=== PATIENT | male | born 1950 | race African-American/Black ===

== ENCOUNTER 2017-03-07 12:05 | Observation (INO) | payer BC ==
[2017-03-07] MEDS ORDERED: Ondansetron INJ* 2 MG/ML VIAL IV ONE (12:35)
[2017-03-07] MEDS ORDERED: NS 0.9% 1000 ML* 3,000 ML IV ONE (12:35)
[2017-03-07] MEDS ORDERED: Morphine INJ* 4 MG/ML 1 ML SYRINGE IV ONE (12:35)
[2017-03-07 12:47] LABS: Hematocrit 42 % (42-52); Hemoglobin 14.7 g/dl (14.0-18.0); Mean Corpuscular HGB Conc 35 g/dl (31-36); Mean Corpuscular Hemoglobin 32 pg (27-31); Mean Corpuscular Volume 93 fL (80-94); Mean Platelet Volume 7 um3 (7.4-10.4); Red Blood Count 4.54 10^6/ul (4.0-5.4); Red Cell Distribution Width 14 % (10.5-15); White Blood Count 16.4 10^3/ul (3.5-10.8)
[2017-03-07 12:50] LABS: Add Diff/Slide Review? Slide Review Added; Comments Flag Yes
[2017-03-07 13:02] LABS: Albumin 4.6 g/dL (3.2-5.2); BUN/Creatinine Ratio 12.8 (8-20); C Reactive Protein 3.28 mg/L (< 5.00); Calcium 9.7 mg/dL (8.6-10.3); EGFR African American 128.5 (>60); EGFR Non-African American 99.9 (>60); Globulin 3.8 g/dL (2-4); Potassium 3.6 mmol/L (3.5-5.0); Total Bilirubin 0.5 mg/dL (0.2-1.0); Total Protein 8.4 g/dL (6.4-8.9)
[2017-03-07] MEDS ORDERED: HYDROmorphone* 1 MG/ML 1 ML SYR IV SLOW PU ONE ×3 (13:04→17:08)
[2017-03-07] MEDS ORDERED: Iohexol 300* (CONTRAST) 10 ML SDV IV ONE (13:31)
[2017-03-07 16:05] LABS: Urine Bacteria Absent (Absent); Urine Bilirubin Negative (Negative); Urine Glucose Negative (Negative); Urine Nitrite Negative (Negative)
--- NOTE | 2017-03-07 16:53 | RAD ---
CLINICAL HISTORY: Emesis and abdominal pain COMPARISON: Most recent CT of the abdomen and pelvis is dated June 02, 2011 TECHNIQUE: Contrast enhanced CT examination of the abdomen and pelvis from the lung bases through the initial tuberosities. The patient received 123 mL Omnipaque 300 intravenously prior to imaging.The patient received oral contrast as well prior to imaging. FINDINGS: VISUALIZED LUNG BASES: The visualized lung bases are grossly clear. There is no pleural effusion. ABDOMEN AND PELVIS: Liver is homogenously hypodense relative to the spleen. In the right lobe (image 18) there is a 1.1 cm hyperattenuating subcapsular lesion that may be a bit larger when compared to the 2011 CT examination. The spleen, pancreas and adrenal glands are grossly normal in appearance. The gallbladder is normal. The right kidney is normal in appearance without focal mass, calcification or signs of hydronephrosis. At the lower pole of the left kidney there is a heterogeneous well-circumscribed mass measuring 4.4 x 3.7 cm in the axial plane and 4.5 cm in the cephalocaudal projection. This mass was not present on the previous CT examination. The oral contrast has not progressed beyond the midportion of the small bowel which limits evaluation of the distal small bowel and colon. The small and large bowel are not distended. The patient's normal 6 mm appendix is identified in the right lower quadrant (coronal image 48). Beginning at the hepatic flexure there is possible wall thickening of the transverse colon extending as far as the descending colon. Evaluation is limited without oral contrast in the lumen. Gas and stool is seen as far as the rectum. The wall thickening of the descending colon potentially measures as thick a 7 mm (image 49). There is no definite pericolonic fat stranding. There is no evidence of colonic perforation or drainable fluid collection. There is no gross retroperitoneal or mesenteric lymphadenopathy. The prostate is enlarged measuring 5.3 x 6.6 cm in the axial plane and approximately 5.4 cm in the cephalocaudal projection. A small left-sided fat-containing wall hernia is noted. The mildly calcified abdominal aorta and iliac arteries are normal in diameter and exhibit moderate ectatic curvature. Degenerative changes include multilevel loss of intervertebral disc height involving the lower thoracic and lumbar spine.There are no sinister bone lesions. IMPRESSION: 1. Evaluation of the colon is limited as the oral contrast has not progressed on the midportion of the small bowel, but CT findings indicate long segment colitis of the transverse and descending colon. An inflammatory or infectious etiology is favored. 2. There has been interval appearance of a 4.5 cm mass at the lower pole the left kidney. Renal cell carcinoma is the primary concern. Further imaging characterization could be obtained with contrast-enhanced MRI or ultrasound of the kidney. There is currently no CT evidence of metastases in the abdomen or pelvis. 3. Prostatomegaly. 4. Hyperenhancing lesion in the right lobe of the liver is slightly larger than the [address] CT and most consistent with a flash filling hemangioma. 5. Additional chronic and degenerative changes as described in the body the report.
[2017-03-07] MEDS ORDERED: Ciprofloxacin 400MG IVPREMIX(* 400 MG/200 ML BAG IVPB ONE (17:06)
[2017-03-07] MEDS ORDERED: metroNIDAZOLE IV 500 MG/100ML* 500 MG/100 ML BAG IVPB ONE (17:08)
--- NOTE | 2017-03-07 18:40 | ED ---
I, Oh,Soohjoyce, scribed for Danilo Rob MD on 03/07/17 at 1242 . Abdominal Pain/Male - HPI Summary HPI Summary: This 67 y/o male presents to ED for acute abd pain since 0600 AM. He denies any abd discomfort last night although admits sleep disturbance. Pain is left sided , does not radiate anywhere, and constant but waxing and waning since the time of onset. Positive n/v/d. Difficulty tolerating liquid. Negative blood in stool or in vomit. Pt is noted with diaphoresis at time of initial evaluation. Pt denies any PMHx. Pt is former smoker and occasional M[employer] user. - History of Current Complaint Chief Complaint: EDAbdPain Stated Complaint: VOMITING Time Seen by Provider: 03/07/17 12:25 Hx Obtained From: Patient Timing: Constant Pain Intensity: 10 Pain Scale Used: 0-10 Numeric Location: Discrete At: LUQ, Discrete At: LLQ Radiates: No Character: Dull Aggravating Factor(s): Nothing Alleviating Factor(s): Nothing Associated Signs And Symptoms: Positive: Nausea, Vomiting, Diarrhea. Negative: Blood in Stool, Urinary Symptoms - Allergies/Home Medications Allergies/Adverse Reactions: Allergies Allergy/AdvReac Type Severity Reaction Status Date / Time No Known Allergies Allergy Verified 03/07/17 12:08 PMH/Surg Hx/FS Hx/Imm Hx Previously Healthy: Yes - Pt denies any PMHx. Infectious Disease History: No Infectious Disease History: Denies: History Other Infectious Disease, Traveled Outside the [place] in Last 30 Days - Family History Known Family History: Negative: Cardiac Disease, Hypertension - Social History Alcohol Use: Occasionally Hx Substance Use: Yes Substance Use Type: Reports: Marijuana Substance Use Comment - Amount & Last Used: "every now and then" Hx Tobacco Use: Yes Smoking Status (MU): Former Smoker Review of Systems Negative: Fever Positive: Abdominal Pain, Vomiting, Diarrhea, Nausea. Negative: Other - blood in stool Negative: dysuria, hematuria All Other Systems Reviewed And Are Negative: Yes Physical Exam - Summary Physical Exam Summary: The patient is well-nourished and moderate discomfort. The skin is warm and dry and skin color reflects adequate perfusion. Track brendon on LUE. Diaphoretic. Positive pallor. HEENT: The head is normocephalic and atraumatic. The pupils are equal and reactive. The conjunctivae are clear and without drainage. Nares are patent and without drainage. Mouth reveals DRY mucous membranes and the throat is without erythema and exudate. The external ears are intact. The ear canals are patent and without drainage. The tympanic membranes are intact. Neck is supple with full range of motion and non-tender. There are no carotid bruits. Supple. Respiratory: Chest is non-tender. Lungs are clear to auscultation and breath sounds are symmetrical and equal. Cardiovascular: Hear is regular rate and rhythm. Unruly There is no murmur or rub auscultated. There is no peripheral edema and pulses are symmetrical and equal. Abdomen: The abdomen is soft and without reproducible tenderness to palpation. Decreased bowel sound. no percussive tenderness. There are normal bowel sounds heard in all four quadrants and there is no organomegaly palpated. Musculoskeletal: There is no back pain noted. Extremities are non-tender with full range of motion. There is good capillary refill. There is no peripheral edema or calf tenderness elicited. Neurological: Patient is alert and oriented to person, place and time. The patient has symmetrical motor strength in all four extremities. Cranial nerves are grossly intact. Deep tendon reflexes are symmetrical and equal in all four extremities. Psychiatric: The patient has an appropriate affect and does not exhibit any anxiety or depression. . Triage Information Reviewed: Yes Vital Signs On Initial Exam: Initial Vitals Temp Pulse Resp BP Pulse Ox 96.4 F 53 20 186/80 100 03/07/17 12:09 03/07/17 12:09 03/07/17 12:09 03/07/17 12:09 03/07/17 12:09 Vital Signs Reviewed: Yes - [place] Coma Scale Coma Scale Total: 15 Diagnostics - Vital Signs Vital Signs Temp Pulse Resp BP Pulse Ox 03/07/17 12:22 55 99 03/07/17 12:21 169/88 03/07/17 12:09 96.4 F 53 20 186/80 100 - Laboratory Lab Results: Lab Results 03/07/17 03/07/17 03/07/17 Range/Units 12:40 12:40 12:40 WBC 16.4 H (3.5-10.8) 10^3/ul RBC 4.54 (4.0-5.4) 10^6/ul Hgb 14.7 (14.0-18.0) g/dl Hct 42 (42-52) % MCV 93 (80-94) fL MCH 32 H (27-31) pg MCHC 35 (31-36) g/dl RDW 14 (10.5-15) % Plt Count 315 (150-450) 10^3/ul MPV 7 L (7.4-10.4) um3 Neut % (Auto) 92.5 H (38-83) % Lymph % (Auto) 3.7 L (25-47) % Ramsey % (Auto) 3.2 (1-9) % Eos % (Auto) 0 (0-6) % Baso % (Auto) 0.6 (0-2) % Absolute Neuts (auto) 15.2 H (1.5-7.7) 10^3/ul Absolute Lymphs (auto) 0.6 L (1.0-4.8) 10^3/ul Absolute Monos (auto) 0.5 (0-0.8) 10^3/ul Absolute Eos (auto) 0 (0-0.6) 10^3/ul Absolute Basos (auto) 0.1 (0-0.2) 10^3/ul Absolute Nucleated RBC 0.01 10^3/ul Nucleated RBC % 0.1 Sodium 138 (133-145) mmol/L Potassium 3.6 (3.5-5.0) mmol/L Chloride 104 (101-111) mmol/L Carbon Dioxide 23 (22-32) mmol/L Anion Gap 11 (2-11) mmol/L BUN 10 (6-24) mg/dL Creatinine 0.78 (0.67-1.17) mg/dL Est GFR ( Amer) 128.5 (>60) Est GFR (Non-Af Amer) 99.9 (>60) BUN/Creatinine Ratio 12.8 (8-20) Glucose 147 H (70-100) mg/dL Lactic Acid 3.0 H* (0.5-2.0) mmol/L Calcium 9.7 (8.6-10.3) mg/dL Total Bilirubin 0.50 (0.2-1.0) mg/dL AST 17 (13-39) U/L ALT 18 (7-52) U/L Alkaline Phosphatase 81 (34-104) U/L Total Creatine Kinase 119 (10-223) U/L Troponin I 0.00 (<0.04) ng/mL C-Reactive Protein 3.28 (< 5.00) mg/L Total Protein 8.4 (6.4-8.9) g/dL Albumin 4.6 (3.2-5.2) g/dL Globulin 3.8 (2-4) g/dL Albumin/Globulin Ratio 1.2 (1-3) Amylase 89 (29-103) U/L Lipase 11 (11.0-82.0) U/L Urine Color Urine Appearance Urine pH (5-9) Ur Specific Woody (1.010-1.030) Urine Protein (Negative) Urine Ketones (Negative) Urine Blood (Negative) Urine Nitrate (Negative) Urine Bilirubin (Negative) Urine Urobilinogen (Negative) Ur Leukocyte Esterase (Negative) Urine WBC (Auto) (Absent) Urine RBC (Auto) (Absent) Urine Bacteria (Absent) Urine Glucose (Negative) 03/07/17 Range/Units 15:55 WBC (3.5-10.8) 10^3/ul RBC (4.0-5.4) 10^6/ul Hgb (14.0-18.0) g/dl Hct (42-52) % MCV (80-94) fL MCH (27-31) pg MCHC (31-36) g/dl RDW (10.5-15) % Plt Count (150-450) 10^3/ul MPV (7.4-10.4) um3 Neut % (Auto) (38-83) % Lymph % (Auto) (25-47) % Ramsey % (Auto) (1-9) % Eos % (Auto) (0-6) % Baso % (Auto) (0-2) % Absolute Neuts (auto) (1.5-7.7) 10^3/ul Absolute Lymphs (auto) (1.0-4.8) 10^3/ul Absolute Monos (auto) (0-0.8) 10^3/ul Absolute Eos (auto) (0-0.6) 10^3/ul Absolute Basos (auto) (0-0.2) 10^3/ul Absolute Nucleated RBC 10^3/ul Nucleated RBC % Sodium (133-145) mmol/L Potassium (3.5-5.0) mmol/L Chloride (101-111) mmol/L Carbon Dioxide (22-32) mmol/L Anion Gap (2-11) mmol/L BUN (6-24) mg/dL Creatinine (0.67-1.17) mg/dL Est GFR ( Amer) (>60) Est GFR (Non-Af Amer) (>60) BUN/Creatinine Ratio (8-20) Glucose (70-100) mg/dL Lactic Acid (0.5-2.0) mmol/L Calcium (8.6-10.3) mg/dL Total Bilirubin (0.2-1.0) mg/dL AST (13-39) U/L ALT (7-52) U/L Alkaline Phosphatase (34-104) U/L Total Creatine Kinase (10-223) U/L Troponin I (<0.04) ng/mL C-Reactive Protein (< 5.00) mg/L Total Protein (6.4-8.9) g/dL Albumin (3.2-5.2) g/dL Globulin (2-4) g/dL Albumin/Globulin Ratio (1-3) Amylase (29-103) U/L Lipase (11.0-82.0) U/L Urine Color Yellow Urine Appearance Clear Urine pH 6.0 (5-9) Ur Specific Woody 1.051 H (1.010-1.030) Urine Protein 1+(30 mg/dl) H (Negative) Urine Ketones Negative (Negative) Urine Blood 1+ H (Negative) Urine Nitrate Negative (Negative) Urine Bilirubin Negative (Negative) Urine Urobilinogen Negative (Negative) Ur Leukocyte Esterase Negative (Negative) Urine WBC (Auto) Absent (Absent) Urine RBC (Auto) 1+(3-5/hpf) H (Absent) Urine Bacteria Absent (Absent) Urine Glucose Negative (Negative) Result Diagrams: 03/07/17 12:40 03/07/17 12:40 Lab Statement: Any lab studies that have been ordered have been reviewed, and results considered in the medical decision making process. - CT Ab/P CT Interpretation: Positive (See Comments) - 1. Evaluation of the colon is limited as the oral contrast has not progressed on the midportion of the small bowel, but CT findings indicate long segment colitis of the transverse and descending colon. An inflammatory or infectious etiology is favored. 2. There has been interval appearance of a 4.5 cm mass at the lower pole the left kidney. Renal cell carcinoma is the primary concern. Further imaging characterization could be obtained with contrast-enhanced MRI or ultrasound of the kidney. There is currently no CT evidence of metastases in the abdomen or pelvis. 3. Prostatomegaly. 4. Hyperenhancing lesion in the right lobe of the liver is slightly larger than the [address] CT and most consistent with a flash filling hemangioma. 5. Additional chronic and degenerative changes as described in the body the report. CT Interpretation Completed By: Radiologist - EKG 1325 Cardiac Rate: Bradycardia - 49 bpm EKG Rhythm: Sinus Bradycardia EKG Interpretation: left axis. Nonspecific ST changes Re-Evaluation - Re-Evaluation First Eval Re-Evaluation Time: 15:50 Comment: Pt was re-evaluated. Pt is still diaphoretic, and pain still persist. Pain med ordered. Second Eval Re-Evaluation Time: 17:04 Comment: Pt is updated with bloodworks and CT reading results. Hard copies are provided to pt. Pain still persist. Abdominal Pain Fem Course/Dx - Course Assessment/Plan: This 67 y/o male presents to ED with severe diffuse abd pain. Upon examination pt was not tendern to palpation, but noted diaphoretic and in exquisite pain. Bloodwork indicated lactic acid of 3.0 and WBC of 16.4, and CT indicates long segment colitis of the transverse and descending colon, 4.5 cm mass at the lower pole the left kidney with primary concern for Renal cell carcinoma, and flash filling hemangioma. Hospitalist was consulted, and pt is admitted for further workup. - Diagnoses Differential Diagnosis/HQI/PQRI: Appendicitis, Bowel Obstruction, Diverticulitis , Ischemic Bowel, Renal Colic, Ureteral Stone, Other - perforated viscus, mi, renal mass Provider Diagnoses: Colitis, acute - Provider Notifications Discussed Care Of Patient With: Dr. Barrow (hospitalist) at 1700 PM -- jamaica martins for pt. Instructed by Provider To: Admit As Inpatient - Critical Care Time Critical Care Time: 30-74 min - 30 minutes Discharge - Discharge Plan Condition: Stable Disposition: ADMITTED TO [facility] documentation as recorded by the Jaziel wray Soohyun accurately reflects the service I personally performed and the decisions made by , Danilo Rob MD.
[2017-03-07] MEDS ORDERED: HYDROmorphone* 1 MG/ML 1 ML SYR IV SLOW PU PRN (18:48)
[2017-03-07] MEDS ORDERED: hydrALAZINE IV* 20 MG/ML VIAL IV SLOW PU PRN (18:48)
[2017-03-07] MEDS ORDERED: Ondansetron INJ* 2 MG/ML VIAL IV PRN (18:49)
[2017-03-07] MEDS: NS 0.9% 1000 ML* 1,000 ML IV SCH (19:44)
--- NOTE | 2017-03-07 20:37 | RAD ---
INDICATION: Further evaluation of a left lower pole renal mass. COMPARISON: Same day CT examination that demonstrates heterogeneous left lower pole renal mass. TECHNIQUE: Real-time ultrasound examination of the left kidney including grayscale and Doppler color flow analysis. FINDINGS: The left kidney measures 13.4 x 5.2 x 6.2 cm. Corresponding to the same day CT examination, there is an echogenically heterogeneous solid mass with arterial vascular flow measuring 6.5 x 3.7 x 3.9 cm. Remaining visualized portions of the left kidney are normal. There is no hydronephrosis. IMPRESSION: Heterogeneous lower pole renal mass measuring 6.5 cm in greatest dimension concerning for malignancy.
--- NOTE | 2017-03-07 21:12 | HP ---
HOSPITAL MEDICINE HISTORY AND PHYSICAL: DATE OF ADMISSION: 03/07/17 PRIMARY CARE PHYSICIAN: None. ATTENDING PHYSICIAN: Yolande Coats MD *(dictation provided by Kassie Solis NP) . CHIEF COMPLAINT: Abdominal pain with nausea and vomiting. HISTORY OF PRESENT ILLNESS: Mr. Crews is a 67-year-old male who does not follow routinely with medical care, but has no known past medical history who presented to the hospital today after the sudden onset of nausea, vomiting, diarrhea, and abdominal pain. Mr. Crews states he was in his normal state of health yesterday and when he first woke up this morning; however, about 30 minutes after waking up he developed nausea. He became very diaphoretic and cold. He thereafter had severe mid epigastric pain. He described it as clinching and burning. He had 3 very small episodes of loose stool and 3 episodes of vomiting. He was cold and diaphoretic at times, but he did not take his temperature. He has not had any known sick contacts. He denies other complaint of chest pain, shortness of breath, or cough. In the emergency room, Mr. Crews is complaining of 10/10 abdominal pain and clutching his abdomen. He went on for an abdomen and pelvis CT which showed findings consistent with colitis of the transverse and descending colon with infectious or inflammatory etiology favored; however, there was also a 4.5-cm mass identified in the lower pole of the left kidney which was new from prior CT scan in 2010. Labs showed that the patient did have a leukocytosis with a white blood cell count of 16,000. His other labs were unremarkable except for lactic acidosis with a lactic acid of 3.0. PAST MEDICAL HISTORY: None. MEDICATIONS: None. ALLERGIES: None. FAMILY HISTORY: The patient states his mother at 92 of old age. His father at 77 related to a stroke. He has had a sister who who was autistic, but he does not know the cause of . Another sister who of stroke. Another sister who has of unknown causes and multiple brothers who which he attributes to excessive alcoholism. SOCIAL HISTORY: The patient was a former smoker, he quit in 2007, but states he was always a very light smoker. He does continue to smoke marijuana. He denies alcohol use. He states that his friend, Cristal, would be his healthcare proxy. REVIEW OF SYSTEMS: A 14-point review of systems was completed with Mr. Crews and all those mentioned above were negative. PHYSICAL EXAMINATION GENERAL: Mr. Crews is feeling comfortable. He states he has recently been given some narcotics and he is painfree in the abdomen in this time. VITAL SIGNS: Temperature 96.4, pulse rate 58, respiratory rate 16, O2 saturation 99% on room air, blood pressure 138/79; however, I will note that his blood pressure was quite elevated in the emergency room up to 205/96. LUNGS: Clear to auscultation bilaterally with no accessory muscle use and good aeration. HEART: S1, S2. No murmur, rub, or gallop and regular. ABDOMEN: Soft, nontender with bowel sounds positive x4. The patient is indeed not tender to palpation at this point after receiving narcotics. EXTREMITIES: No cyanosis or edema. NEUROLOGIC: He is alert and oriented x3. He moves all extremities equally. There is no facial asymmetry or focal weakness. Extraocular movements are intact. SKIN: Intact. LABORATORY DATA AND DIAGNOSTIC STUDIES: WBC 16.4, hemoglobin 14.7, hematocrit 42, platelet count 315. Sodium 138, potassium 3.6, chloride 104, serum bicarbonate 23, BUN 10, creatinine 0.78, glucose 147, lactic acid 3.0. Troponin 0.00. CRP 3.28. Urine shows no evidence of infection. Abdomen and pelvis CT is read as follows: "Evaluation of the colon is limited as the oral contrast does not progress on the mid portion of the small bowel, but CT findings indicate long segment colitis of the transverse and descending colon. An inflammatory or infectious etiology is favored. There is an interval appearance of a 4.5-cm mass at the lower pole of the left kidney. Renal cell carcinoma is the primary concern. Further imaging characterization could be obtained with a contrast enhanced MRI or ultrasound of the kidney. There is currently no CT evidence for metastases in the abdomen or pelvis. There is prostatomegaly. Hyperenhancing lesion on the right lobe of the liver is slightly larger than the [address] and most consistent with a flash filling hemangioma." EKG shows sinus rhythm with a heart rate of 49 and no evidence of ischemia. ASSESSMENT: Mr. Crews is a 67-year-old male with no past medical history who presented to the hospital today with sudden onset of nausea, vomiting, abdominal pain, and diarrhea. In the emergency room, he did have a CT of the abdomen which showed colitis and he does have leukocytosis. Our plans will be for admission to the hospital inpatient status as I expect his length of stay to be greater than 2 days for the followin. Nausea, vomiting, diarrhea, abdominal pain: The patient's CT scan confirmed colitis. He has no history of inflammatory bowel disease and there is no evidence of bowel ischemia. I suspect his symptoms are related to an infectious colitis. He has been given Cipro and Flagyl in the emergency room and given the severity of his illness and need for hospitalization, I will continue with antibiotics. The patient will have IV fluids. I note that his lactic acid was elevated on admission and will be rechecking that now. He will have Zofran available p.r.n. as well as Dilaudid. I have added on blood cultures and stool cultures as well 2. Renal mass: I did discuss this with the patient and his friend, Cristal, who is at the bedside today. Plan is for an ultrasound as recommended per Dr. Cortes from Radiology. The patient will likely need biopsy which can be followed up on once he has recovered from his colitis. 3. DVT prophylaxis with heparin subcu. 4. Disposition to the medical floor. 5. Code status: Full code. TIME SPENT: Approximately 60 minutes were spent on the admission of this patient, more than half time spent with the patient at the bedside reviewing the events leading up to this hospitalization, performing the physical examination, and reviewing my plan of care. KASSIE SOLIS NP [id number]/[facility] [place] #: [id number] YURI
[2017-03-08] MEDS: metroNIDAZOLE IV 500 MG/100ML* 500 MG/100 ML BAG IVPB SCH ×2 (02:15→10:20)
[2017-03-08] MEDS: NS 0.9% 1000 ML* 1,000 ML IV SCH (05:42)
[2017-03-08] MEDS ORDERED: Ciprofloxacin 400MG IVPREMIX(* 400 MG/200 ML BAG IVPB SCH (06:00)
[2017-03-08 06:44] LABS: Hematocrit 41 % (42-52); Mean Corpuscular HGB Conc 34 g/dl (31-36); Mean Corpuscular Hemoglobin 31 pg (27-31); Mean Corpuscular Volume 91 fL (80-94); Mean Platelet Volume 8 um3 (7.4-10.4); Red Blood Count 4.48 10^6/ul (4.0-5.4); Red Cell Distribution Width 14 % (10.5-15); White Blood Count 18.6 10^3/ul (3.5-10.8)
[2017-03-08 06:48] LABS: BUN/Creatinine Ratio 10.5 (8-20); Calcium 8.9 mg/dL (8.6-10.3); EGFR African American 114.8 (>60); EGFR Non-African American 89.2 (>60); Potassium 3.6 mmol/L (3.5-5.0)
[2017-03-08 06:49] LABS: Comments Flag Yes
--- NOTE | 2017-03-08 10:30 | RAD ---
HISTORY: Renal mass, evaluate for metastatic disease COMPARISONS: October 31, 2015 VIEWS: 2: Frontal dual-energy and lateral views of the chest. FINDINGS: CARDIOMEDIASTINAL SILHOUETTE: The cardiomediastinal silhouette is normal. GAVINO: The gavino are normal. PLEURA: The costophrenic angles are sharp. No pleural abnormalities are noted. LUNG PARENCHYMA: The lungs are clear. ABDOMEN: The upper abdomen is clear. There is no subphrenic gas. BONES AND SOFT TISSUES: No bone or soft tissue abnormalities are noted. OTHER: None. IMPRESSION: NO ACTIVE CARDIOPULMONARY DISEASE. CT MAY BE MORE SENSITIVE FOR DETECTION OF SMALL PULMONARY NODULES IN THE SETTING OF METASTATIC DISEASE.
[2017-03-08 17:58] VITALS: BP 134/70
--- NOTE | 2017-03-09 04:04 | DS ---
DISCHARGE SUMMARY: DATE OF ADMISSION: 03/07/17 DATE OF DISCHARGE: 03/08/17 PRIMARY CARE PROVIDER: None. DISCHARGE DIAGNOSES: 1. Colitis, presumed infectious. 2. Left kidney heterogeneous mass of up to 6.5 cm concerning for malignancy. SECONDARY DIAGNOSIS: No past medical history reported. MEDICATIONS AT DISCHARGE: Include: 1. Ciprofloxacin 500 mg p.o. b.i.d. for a total of 7 days. 2. Metronidazole 500 mg 3 times a day for a total of 7 days. FOLLOWUP RECOMMENDATION: 1. Follow up with Dr. Salazar's office in 4 to 7 days in regards to setting of follow up and seeing Dr. Salazar for left kidney mass that is possibly malignant. 2. In regards to the patient's primary care provider, our office is in the process of trying to schedule an appointment and find the patient and primary care provider. LABORATORY DATA AND STUDIES PERFORMED DURING THE HOSPITAL STAY: Included: 1. On 03/08/17, sodium of 138, potassium 3.6, chloride 103, carbon dioxide 26, BUN 9, creatinine 0.86. 2. CBC: White blood cell count of 18.6, hemoglobin of 14.1, hematocrit of 41, and platelets of 312. 3. Portable chest x-ray, impression: "No active cardiopulmonary disease. CT may be more sensitive for detection of small pulmonary nodules in the setting of metastatic disease." 4. Renal ultrasound obtained on 03/07/17, impression: "Heterogenous left lower pole renal mass measuring 6.5 cm in greatest dimension concerning for malignancy." 5. CT of the abdomen and pelvis obtained on 03/07/17, impression: "Evaluation of the colon is limited as the oral contrast has not progressed on the midportion of the small bowel, but CT findings indicate long segment colitis of the transverse and descending colon. An inflammatory or infectious etiology is favored. There has been interval appearance of 4.5 cm mass in the lower pole of the left kidney. Invasive carcinoma is the primary concern. Further imaging characterization could be obtained with contrast-enhanced MRI or ultrasound of the kidney. There is currently no CT evidence of metastasis in the abdomen and pelvis. Prostatomegaly. Hyperenhancing lesion in the right lobe of the liver is slightly larger than 2011 CT and most consistent with flash filling hemangioma." HOSPITALIZATION COURSE: Mr. Crews is a 67-year-old male who presented to the hospital complaining of abdominal pain in the area on 03/07/17. The symptoms had not been present for over 24 hours when the patient presented. His CT showed possibility of colitis and due to the patient's history, it was presumed to be infectious. The patient was placed on ciprofloxacin and Flagyl with good results and by the time of discharge, he complained of no abdominal pain, although he still had a couple of loose stools on the day of discharge. Incidentally so, there was a large mass found on the lower pole of the left kidney that was new comparing from CT of 2010. An ultrasound of the left kidney confirmed a mass to be of 6.5 cm and heterogeneous. I discussed the case with Dr. Salazar, who recommended for the patient to be followed as an outpatient with his office. At this point, the patient most likely will need referral to [facility] for further evaluation and treatment. Screening chest x-ray showed no gross evidence of pulmonary nodules. Our officer is currently looking for primary care provider, who is going to take the patient for a followup. PHYSICAL EXAM AT THE TIME OF DISCHARGE: Blood pressure of 120/62, heart rate of 52 and regular, respiratory rate 16, oxygen saturation 98% on room air, temperature of 98.4. General: The patient is a very pleasant 67-year-old male , who is in no acute distress. Alert and awake and oriented x3. HEENT: Head, atraumatic and normocephalic. Eyes, pupils are equal and reactive to light and accommodation. Oropharynx clear. Mucosa moist. Neck: Supple. No JVD. No bruits bilaterally. Cardiovascular: Regular rate and rhythm. No murmur. Respiratory: Clear to auscultation bilaterally. Abdomen: Soft, nontender. Bowel sounds present in all 4 quadrants. Extremities: There is no edema. Pulses +2 bilaterally. No clubbing or cyanosis. Neuro Evaluation: Speech clear. Cranial nerves II through XII grossly intact. Motor strength is 5/5 bilaterally. Please note that this is a short summary of the patient's hospital stay. Please refer to further medical records for details. CC: Dr. Salazar, Urology* [id number]/[facility] #: [id number] MTDD
== END 2017-03-08 17:15 | disposition home or self-care (01) ==
LOC: ED 12:05 → MED 17:30 → INTOOBSV 17:30
PROVIDERS: ADMIT Hospitalist; ATTEND Internal Medicine
DX: K52.9 Noninfective gastroenteritis and colitis, unspecified (principal); N28.89 Other specified disorders of kidney and ureter; R10.9 Unspecified abdominal pain; R00.1 Bradycardia, unspecified; R94.31 Abnormal electrocardiogram [ECG] [EKG]; Z79.899 Other long term (current) drug therapy; Z87.891 Personal history of nicotine dependence
CPT/HCPCS: 36415; 71020; 74177; 76775; 80048; 80053; 81003; 81015; 82150; 82550; 83605; 83690; 84484; 85025; 86140; 87040; 87045; 87046; 87899; 93005; 96361; 96374; 96375; 96376; 99291; G0378; J0744; J1170; J2270; J2405; Q9967

== ENCOUNTER 2017-07-06 14:03 | Inpatient (IN) | payer BC ==
[2017-07-06] MEDS ORDERED: Ondansetron INJ* 2 MG/ML VIAL IV ONE (15:06)
[2017-07-06] MEDS ORDERED: NS 0.9% 1000 ML* 1,000 ML IV SCH (15:15)
[2017-07-06 15:28] LABS: Hematocrit 43 % (42-52); Hemoglobin 14.7 g/dl (14.0-18.0); Mean Corpuscular HGB Conc 34 g/dl (31-36); Mean Corpuscular Hemoglobin 32 pg (27-31); Mean Corpuscular Volume 93 fL (80-94); Mean Platelet Volume 7 um3 (7.4-10.4); Red Blood Count 4.59 10^6/ul (4.0-5.4); Red Cell Distribution Width 15 % (10.5-15); White Blood Count 21.8 10^3/ul (3.5-10.8)
[2017-07-06] MEDS ORDERED: HYDROmorphone* 1 MG/ML 1 ML SYR IV ONE ×2 (15:37→16:36)
[2017-07-06] MEDS ORDERED: HYDROmorphone* 1 MG/ML 1 ML SYR ONE (15:40)
[2017-07-06 15:47] LABS: Albumin 4.7 g/dL (3.2-5.2); BUN/Creatinine Ratio 10.3 (8-20); Calcium 9.8 mg/dL (8.6-10.3); EGFR African American 113.3 (>60); EGFR Non-African American 88.1 (>60); Globulin 3.6 g/dL (2-4); Magnesium 1.5 mg/dL (1.9-2.7); Potassium 3.8 mmol/L (3.5-5.0); Total Bilirubin 0.5 mg/dL (0.2-1.0); Total Protein 8.3 g/dL (6.4-8.9)
[2017-07-06] MEDS ORDERED: Ciprofloxacin 400MG IVPREMIX(* 400 MG/200 ML BAG IVPB ONE (16:03)
[2017-07-06] MEDS ORDERED: metroNIDAZOLE IV 500 MG/100ML* 500 MG/100 ML BAG IVPB ONE (16:03)
[2017-07-06 16:24] LABS: TSH (Thyroid Stimulating Horm) 1.54 mcIU/mL (0.34-5.60)
[2017-07-06] MEDS ORDERED: Iohexol 300* (CONTRAST) 10 ML SDV IV ONE (16:43)
[2017-07-06 16:47] LABS: Urine Bacteria Absent (Absent); Urine Bilirubin Negative (Negative); Urine Glucose Negative (Negative); Urine Nitrite Negative (Negative)
--- NOTE | 2017-07-06 18:02 | RAD ---
INDICATION: Mid abdominal pain. Post resection of a tumor from the LEFT kidney last April. COMPARISON: March 07, 2017 CT. TECHNIQUE: Multidetector CT images were obtained from the lung bases to the ischial tuberosities with 121 mL Omnipaque 300 IV and oral contrast. Multiplanar reformation. REPORT: Unremarkable visualized inferior thorax. 1.1 cm hyperenhancing subcapsular lesion at the RIGHT posterior hepatic segment is unchanged compared with the most recent exam and increased from 0.8 cm on the June 02, 2011 exam. No additional conspicuous focal hepatic lesions. Negative for biliary dilatation. Unremarkable gallbladder, pancreas, and small spleen. Negative for CT abnormality of the upper GI, small bowel, infra cecal appendix, colon. Negative for ascites, free air, or significant hernias. Normal adrenal glands. Symmetric nephrograms and pyelograms. Postsurgical change of lesion resection from the inferior pole of the LEFT kidney compared with the March 07, 2017 exam with mild operative bed edema and nonmass-like probable granulation tissue.. No suspicious focal renal lesions or hydronephrosis. Unremarkable nondilated ureters. Largely decompressed urinary bladder without gross abnormality. Unchanged severe prostate enlargement. Symmetric seminal vesicles. Negative for lymphadenopathy. Mild atherosclerotic plaque of normal diameter abdominal aorta and iliac arteries. Physiologic distention of the IVC. Patent LEFT renal vein. Negative for suspicious focal osseous lesions. IMPRESSION: 1. Postsurgical change of interval lesion resection from the inferior pole of the LEFT kidney without findings suspicious for local recurrence or metastatic disease. Mild operative bed edema/granulation tissue noted. 2. 1.1 cm enhancing subcapsular lesion at the RIGHT posterior hepatic segment is only mildly enlarged from the 2010 exam consistent with benign etiology likely a flash fill hemangioma. 3. Severe prostatomegaly as on the prior exam. 4. Negative for lymphadenopathy or suspicious osseous lesions.
[2017-07-06] MEDS ORDERED: Acetaminophen TAB* 325 MG PO PRN (19:05)
[2017-07-06] MEDS ORDERED: Magnesium Sulfate 2 GM IV* 2 GM/50 ML BAG IVPB ONE (19:19)
[2017-07-06] MEDS ORDERED: Morphine INJ* 4 MG/ML 1 ML SYRINGE ONE (19:21)
[2017-07-06] MEDS ORDERED: hydrALAZINE IV* 20 MG/ML VIAL ONE (19:21)
[2017-07-06] MEDS ORDERED: Ondansetron INJ* 2 MG/ML VIAL ONE (19:21)
[2017-07-06] MEDS: hydrALAZINE IV* 20 MG/ML VIAL IV SLOW PU PRN (19:25)
[2017-07-06] MEDS: Ondansetron INJ* 2 MG/ML VIAL IV PRN (19:30)
[2017-07-06] MEDS: Morphine INJ* 4 MG/ML 1 ML SYRINGE IV PRN (19:30)
--- NOTE | 2017-07-06 19:44 | ED ---
Jose Ndiaye Angela, scribed for Imtiaz Solis MD on 07/06/17 at 1524 . Abdominal Pain/Male - HPI Summary HPI Summary: This pt is a 67 y/o male presenting to [facility] c/o abd pain located in the middle since 1000 this morning. Pt reports associated symptoms of diarrhea, nausea, subjective fever (this morning). Pt denies chest pain, SOB, urinary symptoms, constipation. He notes he had a laparoscopy for a kidney tumor a few months ago. Pt denies eating breakfast this morning. No PMHx of GERD. - History of Current Complaint Chief Complaint: EDAbdPain Stated Complaint: ABD PAIN Time Seen by Provider: 07/06/17 15:06 Hx Obtained From: Patient Onset/Duration: Sudden Onset Timing: Constant Pain Intensity: 10 Pain Scale Used: 0-10 Numeric Location: Other - mid abdomen Radiates: No Aggravating Factor(s): Nothing Alleviating Factor(s): Nothing Associated Signs And Symptoms: Positive: Fever, Nausea, Diarrhea. Negative: Back Pain, Blood in Stool, Urinary Symptoms, Vomiting - Allergies/Home Medications Allergies/Adverse Reactions: Allergies Allergy/AdvReac Type Severity Reaction Status Date / Time No Known Allergies Allergy Verified 07/06/17 15:35 Home Medications: Home Medications Tamsulosin CAP* [Flomax CAP*] 0.4 mg PO DAILY 07/06/17 [History Confirmed ] PMH/Surg Hx/FS Hx/Imm Hx Endocrine/Hematology History: Denies: Hx Diabetes Cardiovascular History: Denies: Hx Hypertension History: Denies: Hx Renal Disease Sensory History: Denies: Hx Contacts or Glasses, Hx Hearing Aid Opthamlomology History: Denies: Hx Contacts or Glasses Infectious Disease History: No Infectious Disease History: Denies: History Other Infectious Disease, Traveled Outside the [place] in Last 30 Days - Family History Known Family History: Positive: None Negative: Cardiac Disease, Hypertension - Social History Alcohol Use: None Hx Substance Use: Yes Substance Use Type: Reports: Marijuana Substance Use Comment - Amount & Last Used: "every now and then" Hx Tobacco Use: Yes Smoking Status (MU): Former Smoker Review of Systems Positive: Fever - subjective fever. Negative: Chills Eyes: Negative ENT: Negative Negative: Chest Pain Negative: Shortness Of Breath Positive: Abdominal Pain, Diarrhea, Nausea. Negative: Vomiting Negative: burning, dysuria, frequency, hematuria, urgency Musculoskeletal: Negative Skin: Negative Neurological: Negative All Other Systems Reviewed And Are Negative: Yes Physical Exam Triage Information Reviewed: Yes Vital Signs On Initial Exam: Initial Vitals Temp Pulse Resp BP Pulse Ox 98.1 F 48 20 192/78 100 07/06/17 14:08 07/06/17 14:08 07/06/17 14:08 07/06/17 14:08 07/06/17 14:08 Vital Signs Reviewed: Yes Appearance: Positive: Well-Appearing, Pain Distress - moderate to severe pain distress Skin: Positive: Warm, Skin Color Reflects Adequate Perfusion, Dry Head/Face: Positive: Normal Head/Face Inspection Eyes: Positive: EOMI, SEVERIANO ENT: Positive: Other - Oral mucosa is dry. Neck: Positive: Supple, Nontender Respiratory/Lung Sounds: Positive: Clear to Auscultation, Breath Sounds Present Cardiovascular: Positive: RRR Abdomen Description: Positive: Soft, Other: - Diffusely tender worse on the epigastrium. Bowel Sounds: Positive: Hypoactive Musculoskeletal: Positive: Normal, Strength/ROM Intact Neurological: Positive: Normal, Sensory/Motor Intact, Alert, Oriented to Person Place, Time Psychiatric: Positive: Affect/Mood Appropriate Diagnostics - Vital Signs Vital Signs Temp Pulse Resp BP Pulse Ox 07/06/17 15:06 97.4 F 49 20 188/92 100 07/06/17 15:00 49 99 07/06/17 14:59 50 100 07/06/17 14:54 97.1 F 50 20 189/91 100 07/06/17 14:08 98.1 F 48 20 192/78 100 - Laboratory Lab Results: Lab Results 07/06/17 07/06/17 07/06/17 Range/Units 15:20 15:20 15:20 WBC 21.8 H (3.5-10.8) 10^3/ul RBC 4.59 (4.0-5.4) 10^6/ul Hgb 14.7 (14.0-18.0) g/dl Hct 43 (42-52) % MCV 93 (80-94) fL MCH 32 H (27-31) pg MCHC 34 (31-36) g/dl RDW 15 (10.5-15) % Plt Count 312 (150-450) 10^3/ul MPV 7 L (7.4-10.4) um3 Neut % (Auto) 85.1 H (38-83) % Lymph % (Auto) 9.4 L (25-47) % [place] % (Auto) 4.9 (1-9) % Eos % (Auto) 0.1 (0-6) % Baso % (Auto) 0.5 (0-2) % Absolute Neuts (auto) 18.6 H (1.5-7.7) 10^3/ul Absolute Lymphs (auto) 2.0 (1.0-4.8) 10^3/ul Absolute Monos (auto) 1.1 H (0-0.8) 10^3/ul Absolute Eos (auto) 0 (0-0.6) 10^3/ul Absolute Basos (auto) 0.1 (0-0.2) 10^3/ul Absolute Nucleated RBC 0 10^3/ul Nucleated RBC % 0 INR (Anticoag Therapy) 1.02 (0.89-1.11) APTT 27.5 (26.0-36.3) seconds Sodium 138 (133-145) mmol/L Potassium 3.8 (3.5-5.0) mmol/L Chloride 104 (101-111) mmol/L Carbon Dioxide 24 (22-32) mmol/L Anion Gap 10 (2-11) mmol/L BUN 9 (6-24) mg/dL Creatinine 0.87 (0.67-1.17) mg/dL Est GFR ( Amer) 113.3 (>60) Est GFR (Non-Af Amer) 88.1 (>60) BUN/Creatinine Ratio 10.3 (8-20) Glucose 167 H (70-100) mg/dL Lactic Acid (0.5-2.0) mmol/L Calcium 9.8 (8.6-10.3) mg/dL Magnesium 1.5 L (1.9-2.7) mg/dL Total Bilirubin 0.50 (0.2-1.0) mg/dL AST 17 (13-39) U/L ALT 21 (7-52) U/L Alkaline Phosphatase 84 (34-104) U/L Troponin I 0.00 (<0.04) ng/mL C-Reactive Protein 1.00 (< 5.00) mg/L Total Protein 8.3 (6.4-8.9) g/dL Albumin 4.7 (3.2-5.2) g/dL Globulin 3.6 (2-4) g/dL Albumin/Globulin Ratio 1.3 (1-3) Lipase 13 (11.0-82.0) U/L TSH 1.54 (0.34-5.60) mcIU/mL Urine Color Urine Appearance Urine pH (5-9) Ur Specific [place] (1.010-1.030) Urine Protein (Negative) Urine Ketones (Negative) Urine Blood (Negative) Urine Nitrate (Negative) Urine Bilirubin (Negative) Urine Urobilinogen (Negative) Ur Leukocyte Esterase (Negative) Urine WBC (Auto) (Absent) Urine RBC (Auto) (Absent) Urine Bacteria (Absent) Urine Glucose (Negative) Urine Ascorbic Acid (Negative) 07/06/17 07/06/17 Range/Units 15:20 16:15 WBC (3.5-10.8) 10^3/ul RBC (4.0-5.4) 10^6/ul Hgb (14.0-18.0) g/dl Hct (42-52) % MCV (80-94) fL MCH (27-31) pg MCHC (31-36) g/dl RDW (10.5-15) % Plt Count (150-450) 10^3/ul MPV (7.4-10.4) um3 Neut % (Auto) (38-83) % Lymph % (Auto) (25-47) % [place] % (Auto) (1-9) % Eos % (Auto) (0-6) % Baso % (Auto) (0-2) % Absolute Neuts (auto) (1.5-7.7) 10^3/ul Absolute Lymphs (auto) (1.0-4.8) 10^3/ul Absolute Monos (auto) (0-0.8) 10^3/ul Absolute Eos (auto) (0-0.6) 10^3/ul Absolute Basos (auto) (0-0.2) 10^3/ul Absolute Nucleated RBC 10^3/ul Nucleated RBC % INR (Anticoag Therapy) (0.89-1.11) APTT (26.0-36.3) seconds Sodium (133-145) mmol/L Potassium (3.5-5.0) mmol/L Chloride (101-111) mmol/L Carbon Dioxide (22-32) mmol/L Anion Gap (2-11) mmol/L BUN (6-24) mg/dL Creatinine (0.67-1.17) mg/dL Est GFR ( Amer) (>60) Est GFR (Non-Af Amer) (>60) BUN/Creatinine Ratio (8-20) Glucose (70-100) mg/dL Lactic Acid 3.0 H* (0.5-2.0) mmol/L Calcium (8.6-10.3) mg/dL Magnesium (1.9-2.7) mg/dL Total Bilirubin (0.2-1.0) mg/dL AST (13-39) U/L ALT (7-52) U/L Alkaline Phosphatase (34-104) U/L Troponin I (<0.04) ng/mL C-Reactive Protein (< 5.00) mg/L Total Protein (6.4-8.9) g/dL Albumin (3.2-5.2) g/dL Globulin (2-4) g/dL Albumin/Globulin Ratio (1-3) Lipase (11.0-82.0) U/L TSH (0.34-5.60) mcIU/mL Urine Color Yellow Urine Appearance Clear Urine pH 5.0 (5-9) Ur Specific [place] 1.023 (1.010-1.030) Urine Protein 2+(100 mg/dl) H (Negative) Urine Ketones Negative (Negative) Urine Blood Negative (Negative) Urine Nitrate Negative (Negative) Urine Bilirubin Negative (Negative) Urine Urobilinogen Negative (Negative) Ur Leukocyte Esterase Negative (Negative) Urine WBC (Auto) Trace(0-5/hpf) (Absent) Urine RBC (Auto) Absent (Absent) Urine Bacteria Absent (Absent) Urine Glucose Negative (Negative) Urine Ascorbic Acid * H (Negative) Result Diagrams: 07/06/17 15:20 07/06/17 15:20 Lab Statement: Any lab studies that have been ordered have been reviewed, and results considered in the medical decision making process. - CT Abd/Pel CT CT Interpretation: Positive (See Comments) - IMPRESSION: 1. Postsurgical change of interval lesion resection from the inferior pole of the LEFT kidney without findings suspicious for local recurrence or metastatic disease. Mild operative bed edema/granulation tissue noted. 2. 1.1 cm enhancing subcapsular lesion at the RIGHT posterior hepatic segment is only midly enlarged from the 2011 exam consistent with benign etiology likely a flash fill hemangioma. 4. Negative for lymphadenopathy or suspicious osseous lesions. ED physician has reviewed this radiology report and agrees. CT Interpretation Completed By: Radiologist - EKG 14:16 Cardiac Rate: Bradycardia - 46 bpm EKG Rhythm: Sinus Rhythm EKG Interpretation: LVH. Minimal ST elevation on inferior leads. Abdominal Pain Fem Course/Dx - Course Assessment/Plan: This pt is a 67 y/o male presenting to [facility] c/o abd pain located in the middle since 1000 this morning. Pt reports associated symptoms of diarrhea, nausea, subjective fever (this morning). Pt denies chest pain, SOB , urinary symptoms, constipation. He notes he had a lacroscopy for a kidney tumor a few months ago. Pt denies eating breakfast this morning. No PMHx of GERD. Labs, UA, CT abd/pel, and EKG were obtained. In the ED course the pt was given IV fluids, Zofran, Dilaudid, Ciprofloxacin, and flagyl. Abd/Pel CT shows 1 ) Postsurgical change of interval lesion resection from the inferior pole of the LEFT kidney without findings suspicious for local recurrence or metastatic disease. Mild operative bed edema/granulation tissue noted. 2) 1.1 cm enhancing subcapsular lesion at the RIGHT posterior hepatic segment is only midly enlarged from the 2011 exam consistent with benign etiology likely a flash fill hemangioma. Elevated BP noted and advised to follow up with PCP. Medications reviewed. Pt will be admitted to the hospitalist in stable condition. PAIN RETURNS DESPITE MULTIPLE DOSES OF IV PAIN MEDICATION. ADMIT HOSPITALIST STABLE. NO CRITICAL CARE TIME. - Diagnoses Provider Diagnoses: Abdominal pain Discharge - Discharge Plan Condition: Stable Disposition: ADMITTED TO [facility] documentation as recorded by the Jose wray Angela accurately reflects the service I personally performed and the decisions made by me, Imtiaz Solis MD.
[2017-07-06] MEDS ORDERED: amLODIPine TAB* 5 MG PO SCH (20:00)
[2017-07-06] MEDS ORDERED: metroNIDAZOLE IV 500 MG/100ML* 500 MG/100 ML BAG IVPB SCH (20:00)
[2017-07-06] MEDS: NS 0.9% 1000 ML* 2,000 ML IV ONE ×2 (20:30→21:30)
[2017-07-06] MEDS: NS 0.9% 1000 ML* 1,000 ML IV SCH ×2 (20:30→22:30)
[2017-07-06] MEDS: PROCHLORPERAZINE INJ 5 MG/ML 2 ML VIAL IV PRN (20:35)
[2017-07-06] MEDS: Pantoprazole IV* 40 MG IV SCH (22:21)
[2017-07-06] MEDS: Heparin VIAL(*) 5000 UNITS/ML VIAL (FIVE THOUSAND) SUBCUT SCH (22:22)
--- NOTE | 2017-07-07 01:15 | HP ---
CC: Dr. King. * HISTORY AND PHYSICAL: DATE OF ADMISSION: 07/06/17 PRIMARY CARE PROVIDER: Dr. King. ATTENDING PHYSICIAN WHILE IN THE HOSPITAL: Joel Carbone MD * (report dictated by Dereck Caro NP). CHIEF COMPLAINT: 1. Abdominal discomfort. 2. Nausea and vomiting. HISTORY OF PRESENT ILLNESS: Mr. Crews is a 67-year-old male patient who carries a history of kidney cancer. Recently 3 months ago, he had a tumor removed laparoscopically at [facility], we will try to get those records. He also carries a history of BPH and a history of hyperlipidemia, on no medications. He comes in today stating that he woke up this morning. He was feeling well initially, but then he became diaphoretic. He denied having any chest pain. He says he just has abdominal pain. He started having abdominal and then he started having diarrhea along with vomiting. He had 3 to 4 bowel movements. He says yesterday he ate some leftover pasta salad from a sikh function that was held on Wednesday. He says that since then, he has been having some discomfort and having diarrhea, and today he has been vomiting and epigastric pain similar to his presentation back in March 2017 when he was found to have a tumor, so he was concerned and came into the hospital. He denied any documented fever. He did admit to having diaphoresis. Again, no chest pain or shortness of breath. Again, he denies having any chest pain now, but he does state that anytime he tries to drink anything, he vomits. He came in to the ED , he was evaluated. He was noted to have a white count of 20,000. In addition of this, was noted to be hypertensive and had a lactic of 3, but CT scan was unrevealing, so the hospitalist service was asked to evaluate for admission. REVIEW OF SYSTEMS: There is no documented fever. He does admit to having chills and diaphoresis. He denies having any double vision. No ear discharge. Denies having any rhinorrhea. No sore throat. No thyroid enlargement. He denied having any chest pain. He denied having any shortness of breath or any orthopnea. He does admit to abdominal discomfort mostly in the epigastric area described as a pressure. There was nausea. There was vomiting and diarrhea. No dysuria. No frequency. No loss of consciousness. No pruritus and no skin ulcerations. Review of 14 systems completed, all others negative. PAST MEDICAL HISTORY: Significant for: 1. Kidney cancer, status post tumor resection in April of this year. 2. BPH. 3. Hyperlipidemia. PAST SURGICAL HISTORY: He has had a kidney tumor resection done at [facility], we will try to get records. HOME MEDICATIONS: Include: 1. Flomax 0.4 mg p.o. daily. 2. NyQuil 1 liquid capsule p.o. at bedtime as needed. ALLERGIES TO MEDICATIONS: No known drug allergies. FAMILY HISTORY: His mother at the age of 92 of old age. Father had a history of CVA. SOCIAL HISTORY: He is a former smoker. He quit over 20 years ago. He does smoke marijuana almost daily. Surrogate decision maker is his friend and Irina chou. PHYSICAL EXAMINATION GENERAL: At this time, Mr. Crews is a 67-year-old male patient. He appears to be well nourished, well developed. He does not appear to be in any acute distress. He is awake and he is alert. VITAL SIGNS: Blood pressure 173/82, pulse of 48, respirations 16, O2 sat 100%, and his temperature when he came in was 97.4. HEENT: Head is atraumatic and normocephalic. Eyes: EOMs are intact. His sclerae were anicteric and not pale. His neck was supple. His throat, oral mucosa appears to be moist. No oropharyngeal erythema. LUNGS: Clear to auscultation bilaterally. HEART: Sounds S1 and S2. Regular rate and rhythm. No murmurs, rubs or gallops. ABDOMEN: Soft. Bowel sounds are present. He did have tenderness in the epigastric area, but he was not distended. EXTREMITIES: He had no peripheral edema. He is able to move all 4 extremities with 5/5 strength. NEUROLOGIC: Patient is awake. He is alert. He is oriented x3. His tongue is midline. His trash man are equal. He had no gross focal deficits. SKIN: Intact. LABORATORY DATA/DIAGNOSTIC STUDIES: His labs today revealed a WBC of 21.8, RBC of 4.59, hemoglobin 14.7, hematocrit 43, and a platelet count of 312. INR 1.02, PTT of 27.5. Sodium is 138, potassium is 3.8, chloride of 104, bicarb 24 , BUN 9, creatinine 0.87, glucose 167. Lactic 3, calcium of 9.8, his mag was 1.5. His total bili is 0.5, AST 17, lipase 13, albumin of 4.7, troponin 0. Urine showed 2+ protein, presence of urine ascorbic acid. He had an abdominal pelvis CT obtained today, which revealed impression of postsurgical change with interval lesion resection from the inferior pole of the left kidney without finding suspicious for focal recurrence or metastatic disease, mild operative bed edema, granulation tissue noted, 1.1 cm enhancing subcapsular lesion at the right posterior hepatic segment is only mildly enlarged from 2011 exam consistent with benign etiology, likely a flash-filling hemangioma, severe prostatomegaly as on prior exam. Negative for lymphadenopathy or suspicious osseous lesions. He had an EKG obtained today as well, which revealed sinus bradycardia with a rate of 46, LVH with no ST elevations or T-wave inversions. I reviewed with a previous EKG, he had similar previous EKG showed a heart rate of 49. Old medical records reviewed. ASSESSMENT AND PLAN: Mr. Crews is a 67-year-old male patient coming into the ER today with complaints of abdominal discomfort with associated nausea, vomiting and diarrhea. He will be admitted under observation status for : 1. Abdominal discomfort with nausea, vomiting, diarrhea. I suspect this is probably related to gastroenteritis, could be food poisoning related to the recent pasta salad that he had. My plan is to go ahead and put him on Cipro at this point. We will hydrate him with normal saline of 125 an hour. We will repeat his lactic acid. We will go ahead and follow him. If he spikes fevers or has worsening pain, we may need to consider getting a surgical consult, but his abdominal exam appears to be benign. He has a mostly epigastric pain. I will give him Protonix, antiemetics, and pain medications for this. 2. Hypertension. Blood pressure done here has been in the 180s to 170s. I am going to put him on hydralazine IV. I would like to get him on Norvasc, but I am afraid if I give him a pill, he will vomit it. So at this point, we will go ahead and again put him on hydralazine. 3. Lactic acid. This is probably related to dehydration from the vomiting and the viral illness. At this point, we will repeat this after he has been hydrated. 4. Benign prostatic hypertrophy. Continue with his Flomax. 5. Hyperlipidemia. Continue his current medical regimen. 6. History of kidney cancer. Again, we will get records from [facility] and he could follow with his primary. 7. DVT prophylaxis. He is high risk. He will be placed on heparin subcu. 8. Codes status. Full code. 9. Fluids, electrolytes and nutrition. He can have a clear liquid diet. TIME SPENT: Time spent on admission 60 minutes, greater than half that time was spent [id number] with the patient obtaining my history and physical, the other half the time was spent going over the plan of care with the patient and implementing plan of care. I did discuss the plan of care with my attending, Dr. Carbone, he is in agreement. DERECK CARO NP [id number]/[facility] #: [id number] YURI
[2017-07-07] MEDS: Ciprofloxacin 400MG IVPREMIX(* 400 MG/200 ML BAG IVPB SCH ×2 (03:46→18:26)
[2017-07-07 05:07] LABS: Hematocrit 35 % (42-52); Hemoglobin 12.2 g/dl (14.0-18.0); Mean Corpuscular HGB Conc 35 g/dl (31-36); Mean Corpuscular Hemoglobin 32 pg (27-31); Mean Corpuscular Volume 92 fL (80-94); Mean Platelet Volume 7 um3 (7.4-10.4); Red Blood Count 3.77 10^6/ul (4.0-5.4); Red Cell Distribution Width 15 % (10.5-15); White Blood Count 15.6 10^3/ul (3.5-10.8)
[2017-07-07 05:11] LABS: Comments Flag Yes
[2017-07-07 05:20] LABS: BUN/Creatinine Ratio 10.8 (8-20); Calcium 8.3 mg/dL (8.6-10.3); EGFR African American 136.5 (>60); EGFR Non-African American 106.2 (>60); Potassium 3.6 mmol/L (3.5-5.0)
[2017-07-07] MEDS: Heparin VIAL(*) 5000 UNITS/ML VIAL (FIVE THOUSAND) SUBCUT SCH ×3 (06:00→20:58)
[2017-07-07] MEDS ORDERED: amLODIPine TAB* 5 MG PO SCH (07:36)
[2017-07-07] MEDS ORDERED: Influenza VAC *QUAD* 2017-18* 0.5 ML SYRINGE IM ONE (09:00)
[2017-07-07] MEDS: metroNIDAZOLE IV 500 MG/100ML* 500 MG/100 ML BAG IVPB SCH ×3 (09:13→23:58)
[2017-07-07] MEDS: Tamsulosin CAP* 0.4 MG PO SCH (09:13)
[2017-07-07] MEDS: NS 0.9% 1000 ML* 1,000 ML IV SCH ×3 (09:14→22:58)
[2017-07-07] MEDS ORDERED: NS 0.9% 1000 ML* 1,000 ML IV ONE (10:36)
--- NOTE | 2017-07-07 13:42 | PN ---
Subjective Date of Service: 07/07/17 Interval History: HOSPITALIST PROGRESS NOTE Patient seen and examined at bedside. He feels better today. Abdominal pain and nausea are much improved. Feels hungry and wants to try solid food. Family History: Unchanged from Admission Social History: Unchanged from Admission Past Medical History: Unchanged from Admission Objective Active Medications: Acetaminophen (Tylenol Tab*) 650 mg PO Q4H PRN PRN Reason: FEVER/PAIN Heparin Sodium (Porcine) (Heparin Vial(*)) 5,000 units SUBCUT Q8HR [facility] Last Admin: 07/07/17 12:55 Dose: 5,000 units Hydralazine HCl (Apresoline Iv*) 5 mg IV SLOW PU Q6H PRN PRN Reason: BLOOD PRESSURE Last Admin: 07/06/17 19:25 Dose: 5 mg Ciprofloxacin/Dextrose (Cipro 400 Mg Ivpremix(*)) 400 mg in 200 mls @ 200 mls/ hr IVPB Q12H [facility] Last Admin: 07/07/17 03:46 Dose: 200 mls/hr Sodium Chloride (Ns 0.9% 1000 Ml*) 1,000 mls @ 125 mls/hr IV PER RATE [facility] Last Admin: 07/07/17 09:14 Dose: 125 mls/hr Metronidazole/Sodium Chloride (Flagyl 500 Mg Ivpb*) 500 mg in 100 mls @ 100 mls /hr IVPB Q8H [facility] Last Admin: 07/07/17 09:13 Dose: 100 mls/hr Morphine Sulfate (Morphine Inj (Syringe)*) 4 mg IV Q4H PRN PRN Reason: PAIN Last Admin: 07/06/17 19:30 Dose: 4 mg Ondansetron HCl (Zofran Inj*) 4 mg IV Q6H PRN PRN Reason: NAUSEA Last Admin: 07/06/17 19:30 Dose: 4 mg Pantoprazole Sodium (Protonix Iv*) 40 mg IV Q24H [facility] Last Admin: 07/06/17 22:21 Dose: 40 mg Prochlorperazine Edisylate (Compazine Inj*) 10 mg IV Q6H PRN PRN Reason: NAUSEA/VOMITING Last Admin: 07/06/17 20:35 Dose: 10 mg Tamsulosin HCl (Flomax Cap*) 0.4 mg PO DAILY [facility] Last Admin: 07/07/17 09:13 Dose: 0.4 mg Vital signs 07/07/17 07:58 Temperature 98.5 F Pulse Rate 60 Respiratory 16 Rate Blood Pressure 106/59 (mmHg) O2 Sat by Pulse 95 Oximetry Oxygen Devices in Use Now: None Appearance: Pleasant gentleman lying in bed in NAD. Eyes: No Scleral Icterus Ears/Nose/Mouth/Throat: Mucous Membranes Moist Neck: Trachea Midline Respiratory: Symmetrical Chest Expansion and Respiratory Effort, Clear to Auscultation Cardiovascular: RRR - Normal S1 and S2 Abdominal: NL Sounds; No Tenderness; No Distention Neurological: Alert and Oriented x 3, NL Muscle Strength and Tone Lines/Tubes/Other Access: Clean, Dry and Intact Peripheral IV Result Diagrams: 07/07/17 04:54 07/07/17 04:54 Assess/Plan/Problems-Billing Assessment: Mr. Crews is a 67yo M with PMH of renal CA, BPH, HLD, who presented to ED with c/o abdominal pain, nausea and vomiting, secondary to gastroenteritis. - Patient Problems (1) Acute gastroenteritis Comment: - Culprit is likely leftover shrimp pasta salad. - Improving. - Continue IVF, Cipro, Flagyl. (2) Dehydration Comment: - Patient still dehydrated, LA still mildly elevated. - Continue IVF. (3) HTN (hypertension) Comment: - Likely secondary to pain as his BP is now normal. - Will continue to monitor, but no medications at this time. (4) BPH (benign prostatic hyperplasia) Comment: - Continue Tamsulosin. (5) DVT prophylaxis Comment: - SQ heparin. (6) Full code status Status and Disposition: Change to inpatient to continue medical management. Anticipate d/c in AM if symptoms continue to improve.
[2017-07-07] MEDS: Pantoprazole IV* 40 MG IV SCH (20:58)
[2017-07-08] MEDS: Morphine INJ* 4 MG/ML 1 ML SYRINGE IV PRN ×3 (01:06→09:50)
[2017-07-08] MEDS: Ondansetron INJ* 2 MG/ML VIAL IV PRN ×2 (01:27→11:31)
[2017-07-08] MEDS ORDERED: HYDROmorphone* 1 MG/ML 1 ML SYR IV SLOW PU ONE (02:05)
[2017-07-08] MEDS: PROCHLORPERAZINE INJ 5 MG/ML 2 ML VIAL IV PRN ×2 (03:29→09:49)
[2017-07-08] MEDS: hydrALAZINE IV* 20 MG/ML VIAL IV SLOW PU PRN ×2 (03:34→11:31)
[2017-07-08] MEDS: Ciprofloxacin 400MG IVPREMIX(* 400 MG/200 ML BAG IVPB SCH ×2 (04:20→15:59)
[2017-07-08] MEDS ORDERED: hydrALAZINE IV* 20 MG/ML VIAL IV SLOW PU ONE (05:00)
[2017-07-08] MEDS: Heparin VIAL(*) 5000 UNITS/ML VIAL (FIVE THOUSAND) SUBCUT SCH ×3 (05:11→21:42)
[2017-07-08 05:14] LABS: Hematocrit 41 % (42-52); Mean Corpuscular HGB Conc 34 g/dl (31-36); Mean Corpuscular Hemoglobin 32 pg (27-31); Mean Corpuscular Volume 93 fL (80-94); Red Blood Count 4.39 10^6/ul (4.0-5.4); Red Cell Distribution Width 15 % (10.5-15)
[2017-07-08 05:24] LABS: BUN/Creatinine Ratio 12.3 (8-20); Calcium 8.9 mg/dL (8.6-10.3); EGFR Non-African American 95.6 (>60); Potassium 3.6 mmol/L (3.5-5.0)
[2017-07-08 05:33] LABS: Comments Flag Yes
[2017-07-08 05:34] LABS: Add Diff/Slide Review? Slide Review Added
[2017-07-08 06:09] LABS: Mean Platelet Volume 8 um3 (7.4-10.4)
--- NOTE | 2017-07-08 08:27 | RAD ---
INDICATION: Pain COMPARISON: CT July 06, 2017 TECHNIQUE: A single view of the abdomen is submitted. FINDINGS: Bones: There are no acute bony findings. Soft tissues: The soft tissues appear normal. The psoas margins are sharp. Bowel gas pattern: Normal Calcifications: There are no abnormal calcifications. Other: None IMPRESSION: A SINGLE VIEW SHOWS NO ACUTE DIAGNOSTIC FINDINGS.
[2017-07-08] MEDS: Tamsulosin CAP* 0.4 MG PO SCH (09:09)
[2017-07-08] MEDS: metroNIDAZOLE IV 500 MG/100ML* 500 MG/100 ML BAG IVPB SCH ×2 (09:10→17:08)
[2017-07-08] MEDS ORDERED: HYDROmorphone* 1 MG/ML 1 ML SYR IV SLOW PU PRN (09:57)
[2017-07-08] MEDS ORDERED: PROCHLORPERAZINE INJ 5 MG/ML 2 ML VIAL IV PRN (11:26)
--- NOTE | 2017-07-08 13:37 | PN ---
Subjective Date of Service: 07/08/17 Interval History: HOSPITALIST PROGRESS NOTE Patient seen and examined at bedside. He developed severe abdominal pain again last night, associated with N/V. Another episode of diarrhea this AM. Family History: Unchanged from Admission Social History: Unchanged from Admission Past Medical History: Unchanged from Admission Objective Active Medications: Acetaminophen (Tylenol Tab*) 650 mg PO Q4H PRN PRN Reason: FEVER/PAIN Heparin Sodium (Porcine) (Heparin Vial(*)) 5,000 units SUBCUT Q8HR [facility] Last Admin: 07/08/17 05:11 Dose: 5,000 units Hydralazine HCl (Apresoline Iv*) 5 mg IV SLOW PU Q6H PRN PRN Reason: BLOOD PRESSURE Last Admin: 07/08/17 11:31 Dose: 5 mg Hydromorphone HCl (Dilaudid Iv*) 1 mg IV SLOW PU Q4H PRN PRN Reason: PAIN Ciprofloxacin/Dextrose (Cipro 400 Mg Ivpremix(*)) 400 mg in 200 mls @ 200 mls/ hr IVPB Q12H [facility] Last Admin: 07/08/17 04:20 Dose: 200 mls/hr Sodium Chloride (Ns 0.9% 1000 Ml*) 1,000 mls @ 125 mls/hr IV PER RATE [facility] Last Admin: 07/07/17 22:58 Dose: 125 mls/hr Metronidazole/Sodium Chloride (Flagyl 500 Mg Ivpb*) 500 mg in 100 mls @ 100 mls /hr IVPB Q8H [facility] Last Admin: 07/08/17 09:10 Dose: 100 mls/hr Morphine Sulfate (Morphine Inj (Syringe)*) 4 mg IV Q4H PRN PRN Reason: PAIN Last Admin: 07/08/17 09:50 Dose: 4 mg Ondansetron HCl (Zofran Inj*) 4 mg IV Q6H PRN PRN Reason: NAUSEA Last Admin: 07/08/17 11:31 Dose: 4 mg Pantoprazole Sodium (Protonix Iv*) 40 mg IV Q24H [facility] Last Admin: 07/07/17 20:58 Dose: 40 mg Prochlorperazine Edisylate (Compazine Inj*) 10 mg IV Q6H PRN PRN Reason: NAUSEA/VOMITING Tamsulosin HCl (Flomax Cap*) 0.4 mg PO DAILY [facility] Last Admin: 07/08/17 09:09 Dose: 0.4 mg Vital Signs 07/08/17 07/08/17 07/08/17 06:10 07:41 09:50 Temperature 98.0 F Pulse Rate 58 Respiratory 16 20 14 Rate Blood Pressure 115/67 (mmHg) O2 Sat by Pulse 99 Oximetry Oxygen Devices in Use Now: None Appearance: Pleasant gentleman lying in bed in NAD. Eyes: No Scleral Icterus Ears/Nose/Mouth/Throat: Mucous Membranes Moist Neck: Trachea Midline Respiratory: Symmetrical Chest Expansion and Respiratory Effort, Clear to Auscultation Cardiovascular: RRR - Normal S1 and S2 Abdominal: - - Soft, mild diffuse tenderness, NG, NR, BS+ Extremities: No Edema Neurological: Alert and Oriented x 3, NL Muscle Strength and Tone Lines/Tubes/Other Access: Clean, Dry and Intact Peripheral IV Nutrition: Taking PO's Result Diagrams: 07/08/17 04:45 07/08/17 04:45 Assess/Plan/Problems-Billing Assessment: Mr. Crews is a 67yo M with PMH of renal CA, BPH, HLD, who presented to ED with c/o abdominal pain, nausea and vomiting, secondary to gastroenteritis. - Patient Problems (1) Acute gastroenteritis Comment: - Culprit is likely leftover shrimp pasta salad. - Recurrence of symptoms today. - KUB showed no abnormalities. - Continue IVF, Cipro, Flagyl, and symptomatic treatment. - If symptoms persist, may need to get GI evaluation. (2) Dehydration Comment: - LA normalized, but PO intake is poor. - Continue IVF. (3) HTN (hypertension) Comment: - Likely secondary to pain as his BP is now normal. - Will continue to monitor, but no medications at this time. (4) BPH (benign prostatic hyperplasia) Comment: - Continue Tamsulosin. (5) DVT prophylaxis Comment: - SQ heparin. (6) Full code status Status and Disposition: Change to inpatient to continue medical management. SO updated at bedside.
[2017-07-08] MEDS: NS 0.9% 1000 ML* 1,000 ML IV SCH (14:13)
[2017-07-08] MEDS: Pantoprazole IV* 40 MG IV SCH (21:43)
[2017-07-09] MEDS: metroNIDAZOLE IV 500 MG/100ML* 500 MG/100 ML BAG IVPB SCH ×2 (00:24→10:24)
[2017-07-09] MEDS: Ciprofloxacin 400MG IVPREMIX(* 400 MG/200 ML BAG IVPB SCH (03:56)
[2017-07-09] MEDS: NS 0.9% 1000 ML* 1,000 ML IV SCH (03:56)
[2017-07-09] MEDS: Heparin VIAL(*) 5000 UNITS/ML VIAL (FIVE THOUSAND) SUBCUT SCH ×2 (05:01→15:40)
[2017-07-09 06:04] LABS: Hematocrit 38 % (42-52); Hemoglobin 13.1 g/dl (14.0-18.0); Mean Corpuscular HGB Conc 35 g/dl (31-36); Mean Corpuscular Hemoglobin 32 pg (27-31); Mean Corpuscular Volume 92 fL (80-94); Mean Platelet Volume 7 um3 (7.4-10.4); Red Blood Count 4.06 10^6/ul (4.0-5.4); Red Cell Distribution Width 15 % (10.5-15); White Blood Count 11.5 10^3/ul (3.5-10.8)
[2017-07-09 06:05] LABS: Add Diff/Slide Review? Slide Review Added; Comments Flag Yes
[2017-07-09 06:23] LABS: BUN/Creatinine Ratio 10.1 (8-20); C Reactive Protein 5.77 mg/L (< 5.00); Calcium 8.9 mg/dL (8.6-10.3); EGFR African American 110.3 (>60); EGFR Non-African American 85.8 (>60); Potassium 3.4 mmol/L (3.5-5.0)
[2017-07-09] MEDS ORDERED: Potassium Chlor TAB* 20 MEQ TAB.ER PO ONE (09:15)
[2017-07-09] MEDS ORDERED: Ciprofloxacin TAB* 500 MG PO SCH (10:00)
[2017-07-09] MEDS ORDERED: Omeprazole CAP* 20 MG PO SCH (10:00)
[2017-07-09] MEDS: Tamsulosin CAP* 0.4 MG PO SCH (10:33)
[2017-07-09] MEDS: metroNIDAZOLE TAB* 250 MG PO SCH ×2 (10:33→15:39)
[2017-07-09 16:23] VITALS: BP 125/70
--- NOTE | 2017-07-10 07:10 | DS ---
CC: Dr. King * DISCHARGE SUMMARY: DATE OF ADMISSION: 07/06/17 DATE OF DISCHARGE: 07/09/17 PRIMARY CARE PROVIDER: Dr. King. DISCHARGE DIAGNOSES: 1. Acute gastroenteritis. 2. Leukocytosis. 3. Dehydration. 4. Lactic acidosis. SECONDARY DIAGNOSES: 1. History of renal cancer. 2. Benign prostatic hyperplasia. 3. Hyperlipidemia. MEDICATION LIST: Tamsulosin 0.4 mg p.o. daily. New medications: 1. Ondansetron 4 mg p.o. q.6 hours p.r.n. nausea, vomiting 2. Metronidazole 500 mg p.o. q.8 hours for 5 more days. 3. Ciprofloxacin 500 mg p.o. q.12 hours for 5 more days. 4. Acetaminophen 650 mg p.o. q.4 hours p.r.n. pain or fever. HOSPITAL COURSE: Mr. Crews is a 67-year-old male with a past medical history stated above that presented to the emergency room with complaints of abdominal pain, nausea, vomiting, and diarrhea. The patient had some left over shrimp pasta salad and after that he started to have abdominal pain, followed initially by nausea, vomiting, and then diarrhea. For more details about his presentation, I refer you to his history and physical. In the emergency room, the patient's CBC revealed a WBC of 21.8 with left shift , 85% neutrophils. He was also found to have lactic acid elevation at 3. CT of the abdomen and pelvis with IV and p.o. contrast showed postsurgical change of interval lesion resection from the inferior pole of the left kidney without finding suspicious for local recurrence of metastatic disease. Mild operative bed edema/granulation tissue was noted. 1.1-cm enhancing subcapsular lesion of the right posterior hepatic segment, mildly enlarged from 2010, consistent with a benign etiology, likely hemangioma. Severe prostatomegaly unchanged from his prior CAT scan. The upper GI, small bowel, appendix, colon showed no abnormalities. There was mild atherosclerotic plaque of normal diameter, abdominal aorta, and iliac arteries. Physiological distention of the IVC and a patent left renal vein. This study was also negative for suspicious focal osseous lesions. The patient was started empirically on ciprofloxacin, Flagyl, IV hydration, and symptomatic treatment. Initially, he felt much improved and decided to try a solid diet, but he had recurrence of his symptoms and was downgraded to a liquid diet that was advanced slowly. He had significant improvement of his leukocytosis, resolution of his lactic acidosis. Blood cultures yielded no growth and at the time of this dictation, stool cultures are pending, but fecal lactoferrin was negative. The final results of his stool culture should be followed as an outpatient. The patient had resolution of his symptoms. He was able to tolerate low-fiber diet and he was felt to be medically stable for discharge today. Please note that with his episodes of pain, nausea, vomiting, the patient developed severe hypertension, sometimes requiring hydralazine IV, but as his symptoms resolved, his blood pressure returned to normal levels. PHYSICAL EXAMINATION: Vital Signs: Temperature 97.9, heart rate is 66, respiratory rate is 20, oxygen saturation 100% on room air, blood pressure is 125/70. General: The patient is a pleasant elderly male, sitting up in bed, in no acute distress. CVS: Normal S1, S2. Regular rate and rhythm. Chest: Breath sounds present bilaterally with no added sounds. Abdomen is soft, nontender. Nondistended. Bowel sounds are present. Extremities: No edema. Neuro: He is alert, awake, and oriented x3. Able to move all 4 extremities. DIET: Low-fiber diet for a week, then back to regular diet. ACTIVITIES: As tolerated. DISPOSITION: To home. STATUS WHILE IN THE HOSPITAL: Inpatient. Please keep in mind this is a summarized version of this patient's hospital stay. If you need more information, please feel free to call me at [phone] or please obtain the full medical records. TIME SPENT: Approximately 45 minutes was spent to complete this discharge. [id number]/[facility] #: [id number]
== END 2017-07-09 16:50 | disposition home or self-care (01) | DRG 249 ==
LOC: ED 14:03 → MED 19:03 → OBSVTOIN 07-07 10:39
PROVIDERS: ADMIT Internal Medicine; ATTEND Internal Medicine
PROC: 3E0234Z Introduction of Serum, Toxoid and Vaccine into Muscle, Percutaneous Approach (ICD-10-PCS; principal; 2017-07-07)
DX: K52.9 Noninfective gastroenteritis and colitis, unspecified (principal); E87.2 Acidosis; E78.5 Hyperlipidemia, unspecified; N40.0 Benign prostatic hyperplasia without lower urinary tract symptoms; F12.90 Cannabis use, unspecified, uncomplicated; I10 Essential (primary) hypertension; E86.0 Dehydration; D72.829 Elevated white blood cell count, unspecified; I70.0 Atherosclerosis of aorta; I70.8 Atherosclerosis of other arteries; Z82.3 Family history of stroke; Z87.891 Personal history of nicotine dependence; Z23 Encounter for immunization; Z85.528 Personal history of other malignant neoplasm of kidney
CPT/HCPCS: 36415; 74000; 74177; 80048; 80053; 81003; 81015; 83605; 83630; 83690; 83735; 84443; 84484; 85025; 85610; 85730; 86140; 87040; 87502; 90686; 93005; A9270-GY; G0378; J0360; J0744; J0780; J1170; J1644; J2270; J2405; J3475; Q9967

== ENCOUNTER 2017-07-11 09:25 | Observation (INO) | payer BC ==
[2017-07-11] MEDS ORDERED: NS 0.9% 1000 ML* 1,000 ML IV ONE ×2 (10:34→14:49)
[2017-07-11] MEDS ORDERED: Ondansetron INJ* 2 MG/ML VIAL IV ONE ×2 (10:34→12:07)
[2017-07-11] MEDS ORDERED: HYDROmorphone* 1 MG/ML 1 ML CARPUJECT IV ONE ×2 (10:34→12:00)
[2017-07-11] MEDS ORDERED: Pantoprazole IV* 40 MG IV ONE (10:39)
[2017-07-11 11:26] LABS: Hematocrit 39 % (42-52); Hemoglobin 13.8 g/dl (14.0-18.0); Mean Corpuscular HGB Conc 35 g/dl (31-36); Mean Corpuscular Hemoglobin 33 pg (27-31); Mean Corpuscular Volume 93 fL (80-94); Mean Platelet Volume 7 um3 (7.4-10.4); Red Blood Count 4.23 10^6/ul (4.0-5.4); Red Cell Distribution Width 15 % (10.5-15); White Blood Count 11.1 10^3/ul (3.5-10.8)
[2017-07-11 11:44] LABS: Albumin 4.4 g/dL (3.2-5.2); BUN/Creatinine Ratio 12.9 (8-20); C Reactive Protein 4.54 mg/L (< 5.00); EGFR African American 104.9 (>60); EGFR Non-African American 81.5 (>60); Potassium 3.5 mmol/L (3.5-5.0); Total Bilirubin 0.5 mg/dL (0.2-1.0); Total Protein 7.4 g/dL (6.4-8.9)
[2017-07-11 11:45] LABS: Troponin I 0.01 ng/mL (<0.04)
[2017-07-11] MEDS ORDERED: Ondansetron INJ* 2 MG/ML VIAL ONE (12:04)
[2017-07-11 12:18] LABS: Urine Bacteria Absent (Absent)
[2017-07-11 12:22] LABS: Urine Bilirubin Negative (Negative); Urine Glucose Negative (Negative); Urine Nitrite Negative (Negative)
[2017-07-11] MEDS ORDERED: Acetaminophen TAB* 325 MG PO PRN (14:49)
[2017-07-11] MEDS ORDERED: PROCHLORPERAZINE INJ 5 MG/ML 2 ML VIAL IV PRN (14:49)
[2017-07-11] MEDS ORDERED: Morphine INJ* 2 MG/ML 1 ML CARPUJECT IV PRN (14:49)
[2017-07-11] MEDS ORDERED: Ondansetron INJ* 2 MG/ML VIAL IV PRN (14:49)
[2017-07-11] MEDS ORDERED: NS 0.9% 1000 ML* 1,000 ML IV SCH (15:00)
[2017-07-11] MEDS: metroNIDAZOLE TAB* 250 MG PO SCH ×2 (16:29→23:03)
[2017-07-11] MEDS: Pantoprazole IV* 40 MG IV SCH (16:29)
[2017-07-11 18:34] LABS: Hematocrit 37 % (42-52); Hemoglobin 12.4 g/dl (14.0-18.0)
--- NOTE | 2017-07-11 18:57 | ED ---
Kandy Ndiaye Edward, scribed for Imtiaz Solis MD on 07/11/17 at 1035 . Abdominal Pain/Male - HPI Summary HPI Summary: 67 y/o male presents to the ED c/o severe ABD pain starting this morning at around 06:30. The pain is located in the mid ABD and is not alleviated by anything. It is rated 10/10 in severity at triage. Associated sx: N/V this morning. Pt [place] [facility] [place] similar symptoms. - History of Current Complaint Chief Complaint: EDAbdPain Stated Complaint: STOMACH PAIN Time Seen by Provider: 07/11/17 10:24 Hx Obtained From: Patient Onset/Duration: Lasting Hours, Still Present Severity Currently: Severe Pain Intensity: 10 Pain Scale Used: 0-10 Numeric Location: Other - Mid ABD Alleviating Factor(s): Nothing Associated Signs And Symptoms: Positive: Nausea, Vomiting - Allergies/Home Medications Allergies/Adverse Reactions: Allergies Allergy/AdvReac Type Severity Reaction Status Date / Time No Known Allergies Allergy Verified 07/06/17 15:35 PMH/Surg Hx/FS Hx/Imm Hx Previously Healthy: No Endocrine/Hematology History: Denies: Hx Diabetes Cardiovascular History: Denies: Hx Hypertension History: Denies: Hx Renal Disease Sensory History: Denies: Hx Contacts or Glasses, Hx Hearing Aid Opthamlomology History: Denies: Hx Contacts or Glasses Infectious Disease History: No Infectious Disease History: Denies: History Other Infectious Disease, Traveled Outside the [place] in Last 30 Days - Family History Known Family History: Negative: Cardiac Disease, Hypertension - Social History Alcohol Use: Occasionally Hx Substance Use: Yes Substance Use Type: Reports: Marijuana Substance Use Comment - Amount & Last Used: "every now and then" Hx Tobacco Use: Yes Smoking Status (MU): Former Smoker Review of Systems Constitutional: Negative Eyes: Negative ENT: Negative Cardiovascular: Negative Respiratory: Negative Positive: Abdominal Pain, Vomiting, Nausea Genitourinary: Negative Musculoskeletal: Negative Skin: Negative Neurological: Negative Psychological: Normal All Other Systems Reviewed And Are Negative: Yes Physical Exam Triage Information Reviewed: Yes Vital Signs On Initial Exam: Initial Vitals Temp Pulse Resp BP Pulse Ox 97.2 F 57 20 201/102 100 07/11/17 09:39 07/11/17 09:39 07/11/17 09:39 07/11/17 09:39 07/11/17 09:39 Vital Signs Reviewed: Yes Appearance: Positive: Well-Appearing, Pain Distress - Mild Skin: Positive: Warm, Skin Color Reflects Adequate Perfusion, Dry Head/Face: Positive: Normal Head/Face Inspection Eyes: Positive: EOMI, SEVERIANO ENT: Positive: Normal ENT inspection Neck: Positive: Supple, Nontender Respiratory/Lung Sounds: Positive: Clear to Auscultation, Breath Sounds Present Cardiovascular: Positive: RRR Abdomen Description: Positive: Soft, Other: - Tender @ mid ABD Bowel Sounds: Positive: Hypoactive Musculoskeletal: Positive: Normal, Strength/ROM Intact Neurological: Positive: Normal, Sensory/Motor Intact, Alert, Oriented to Person Place, Time Psychiatric: Positive: Affect/Mood Appropriate - [place] Coma Scale Coma Scale Total: 15 Diagnostics - Vital Signs Vital Signs Temp Pulse Resp BP Pulse Ox 07/11/17 09:39 97.2 F 57 20 201/102 100 - Laboratory Lab Results: Lab Results 07/11/17 07/11/17 07/11/17 Range/Units 11:16 11:16 11:16 WBC 11.1 H (3.5-10.8) 10^3/ul RBC 4.23 (4.0-5.4) 10^6/ul Hgb 13.8 L (14.0-18.0) g/dl Hct 39 L (42-52) % MCV 93 (80-94) fL MCH 33 H (27-31) pg MCHC 35 (31-36) g/dl RDW 15 (10.5-15) % Plt Count 272 (150-450) 10^3/ul MPV 7 L (7.4-10.4) um3 Neut % (Auto) 86.0 H (38-83) % Lymph % (Auto) 8.1 L (25-47) % Gates % (Auto) 5.3 (1-9) % Eos % (Auto) 0.1 (0-6) % Baso % (Auto) 0.5 (0-2) % Absolute Neuts (auto) 9.5 H (1.5-7.7) 10^3/ul Absolute Lymphs (auto) 0.9 L (1.0-4.8) 10^3/ul Absolute Monos (auto) 0.6 (0-0.8) 10^3/ul Absolute Eos (auto) 0 (0-0.6) 10^3/ul Absolute Basos (auto) 0.1 (0-0.2) 10^3/ul Absolute Nucleated RBC 0 10^3/ul Nucleated RBC % 0 INR (Anticoag Therapy) 1.10 (0.89-1.11) APTT 30.0 (26.0-36.3) seconds Sodium 138 (133-145) mmol/L Potassium 3.5 (3.5-5.0) mmol/L Chloride 107 (101-111) mmol/L Carbon Dioxide 23 (22-32) mmol/L Anion Gap 8 (2-11) mmol/L BUN 12 (6-24) mg/dL Creatinine 0.93 (0.67-1.17) mg/dL Est GFR ( Amer) 104.9 (>60) Est GFR (Non-Af Amer) 81.5 (>60) BUN/Creatinine Ratio 12.9 (8-20) Glucose 134 H (70-100) mg/dL Lactic Acid (0.5-2.0) mmol/L Calcium 9.0 (8.6-10.3) mg/dL Total Bilirubin 0.50 (0.2-1.0) mg/dL AST 31 (13-39) U/L ALT 50 (7-52) U/L Alkaline Phosphatase 71 (34-104) U/L Total Creatine Kinase 175 (10-223) U/L CK-MB (CK-2) 2.0 (0.6-6.3) ng/mL Troponin I 0.01 (<0.04) ng/mL C-Reactive Protein 4.54 (< 5.00) mg/L Total Protein 7.4 (6.4-8.9) g/dL Albumin 4.4 (3.2-5.2) g/dL Globulin 3.0 (2-4) g/dL Albumin/Globulin Ratio 1.5 (1-3) Lipase 13 (11.0-82.0) U/L Urine Color Urine Appearance Urine pH (5-9) Ur Specific Lavon (1.010-1.030) Urine Protein (Negative) Urine Ketones (Negative) Urine Blood (Negative) Urine Nitrate (Negative) Urine Bilirubin (Negative) Urine Urobilinogen (Negative) Ur Leukocyte Esterase (Negative) Urine WBC (Auto) (Absent) Urine RBC (Auto) (Absent) Urine Bacteria (Absent) Urine Glucose (Negative) Urine Ascorbic Acid 07/11/17 07/11/17 Range/Units 11:16 11:59 WBC (3.5-10.8) 10^3/ul RBC (4.0-5.4) 10^6/ul Hgb (14.0-18.0) g/dl Hct (42-52) % MCV (80-94) fL MCH (27-31) pg MCHC (31-36) g/dl RDW (10.5-15) % Plt Count (150-450) 10^3/ul MPV (7.4-10.4) um3 Neut % (Auto) (38-83) % Lymph % (Auto) (25-47) % Gates % (Auto) (1-9) % Eos % (Auto) (0-6) % Baso % (Auto) (0-2) % Absolute Neuts (auto) (1.5-7.7) 10^3/ul Absolute Lymphs (auto) (1.0-4.8) 10^3/ul Absolute Monos (auto) (0-0.8) 10^3/ul Absolute Eos (auto) (0-0.6) 10^3/ul Absolute Basos (auto) (0-0.2) 10^3/ul Absolute Nucleated RBC 10^3/ul Nucleated RBC % INR (Anticoag Therapy) (0.89-1.11) APTT (26.0-36.3) seconds Sodium (133-145) mmol/L Potassium (3.5-5.0) mmol/L Chloride (101-111) mmol/L Carbon Dioxide (22-32) mmol/L Anion Gap (2-11) mmol/L BUN (6-24) mg/dL Creatinine (0.67-1.17) mg/dL Est GFR ( Amer) (>60) Est GFR (Non-Af Amer) (>60) BUN/Creatinine Ratio (8-20) Glucose (70-100) mg/dL Lactic Acid 1.5 (0.5-2.0) mmol/L Calcium (8.6-10.3) mg/dL Total Bilirubin (0.2-1.0) mg/dL AST (13-39) U/L ALT (7-52) U/L Alkaline Phosphatase (34-104) U/L Total Creatine Kinase (10-223) U/L CK-MB (CK-2) (0.6-6.3) ng/mL Troponin I (<0.04) ng/mL C-Reactive Protein (< 5.00) mg/L Total Protein (6.4-8.9) g/dL Albumin (3.2-5.2) g/dL Globulin (2-4) g/dL Albumin/Globulin Ratio (1-3) Lipase (11.0-82.0) U/L Urine Color Yellow Urine Appearance Clear Urine pH 5.0 (5-9) Ur Specific Lavon 1.020 (1.010-1.030) Urine Protein Negative (Negative) Urine Ketones Negative (Negative) Urine Blood 1+ H (Negative) Urine Nitrate Negative (Negative) Urine Bilirubin Negative (Negative) Urine Urobilinogen Negative (Negative) Ur Leukocyte Esterase Negative (Negative) Urine WBC (Auto) Absent (Absent) Urine RBC (Auto) 2+(6-10/hpf) H (Absent) Urine Bacteria Absent (Absent) Urine Glucose Negative (Negative) Urine Ascorbic Acid Not Reportable Result Diagrams: 07/11/17 18:22 07/11/17 11:16 Lab Statement: Any lab studies that have been ordered have been reviewed, and results considered in the medical decision making process. Abdominal Pain Fem Course/Dx - Course Course Of Treatment: PAIN CONTINUES AFTER IFV/ZOFRAN/PAIN MEDS. ADMIT HOSPITALIST. NO CRITICAL CARE TIME. - Diagnoses Provider Diagnoses: Abdominal pain - Provider Notifications Discussed Care Of Patient With: Fernanda Cedillo Time Discussed With Above Provider: 12:58 Discharge - Discharge Plan Condition: Stable Disposition: ADMITTED TO [facility] documentation as recorded by the Kandy wray Edward accurately reflects the service I personally performed and the decisions made by , Imtiaz Solis MD.
[2017-07-11] MEDS: Ciprofloxacin TAB* 500 MG PO SCH (21:15)
--- NOTE | 2017-07-11 21:58 | HP ---
CC: Dr. King; Dr. Tubbs * HISTORY AND PHYSICAL: DATE OF ADMISSION: 07/11/17 PRIMARY CARE PROVIDER: Dr. King. CONSULTING METALS ANALYST: Dr. Tubbs. ATTENDING PHYSICIAN: Dr. Cedillo * (DICTATED BY SHYLA HUMPHREY NP) CHIEF COMPLAINT: 1. Nausea. 2. Vomiting. 3. Abdominal pain. HISTORY OF PRESENT ILLNESS: Mr. Crews is a 67-year-old male patient, who came in to the ER today with complaints of abdominal discomfort. He was just here from 07/06/17 to 07/09/17 with presumed gastroenteritis secondary to food poisoning, he had eaten some leftover salad from a religious function that had been sitting out that had mayonnaise in them. He was sent home on and . He was sent home on , he was doing well on , doing well on Wednesday, doing well yesterday, and last night he had rotisserie chicken mixed in with some soup and his had a couple of bites of this and she is not having any symptoms, but he woke up this morning similar to his previous presentation, sharp, stabbing, central epigastric discomfort associated with diaphoresis, having no chest pain, no shortness of breath. He said he felt the pain was a ripping, annoying, sharp, stabbing pain that got worse. He said he has tried smoking for marijuana since it would help with his nausea; it did not. He became very sweaty like previously. He said the pain started after him having a bowel movement. He had a bowel movement that he said appeared to be black to him. He was concerned because of the discomfort and because of the vomiting, he decided to come into the ER today. He was evaluated and because of worsening abdominal discomfort and the fact that it came back, we were asked to evaluate for admission. Again, there is no chest pain, no shortness of breath. There were no fevers. He said he is feeling better now. Because of recurrence of pain and recent discharge, we were asked to evaluate for admission. PAST MEDICAL HISTORY: Significant for: 1. Renal cell carcinoma, status post tumor resection in April of this year. 2. BPH. 3. Hyperlipidemia. PAST SURGICAL HISTORY: He has had the kidney tumor resection, which did come out to be renal cell carcinoma. MEDICATIONS: Home meds according to his discharge: 1. Flomax 0.4 mg daily. 2. Zofran 4 mg every 6 hours as needed. 3. [place] 2 capsules p.o. daily. 4. Flagyl 500 mg every 8 hours. 5. Cipro 500 mg every 12 hours. 6. Tylenol 650 p.o. every 4 hours as needed. ALLERGIES TO MEDICATIONS: Include no known drug allergies. FAMILY HISTORY: His mother at the age of 92 from old age. His father had a history of stroke. SOCIAL HISTORY: He is former smoker. He quit about 20 years ago. He does smoke marijuana on a daily basis. Surrogate decision maker is his Irina chou. REVIEW OF SYSTEMS: There is no documented fever. He denied having any significant weight change. There was no double vision. He denies having any ear discharge. There is no rhinorrhea. No sore throat, no thyroid enlargement. Denies having any chest pain. There is no orthopnea, no nocturnal dyspnea. There is abdominal pain from my HPI. There was nausea, there was vomiting. No dysuria, no frequency. No seizure, no loss of consciousness. No pruritus and no skin ulcerations. Review of 14 systems completed, all others negative. PHYSICAL EXAMINATION GENERAL: At this time, Mr. Crews is a 67-year-old male patient, he is sitting in the ER stretcher. He does not appear to be in any acute distress. VITAL SIGNS: Reveal blood pressure 119/73, pulse of 48, respirations 18, O2 sat 96%, and temperature 97.2. HEENT: Head: Atraumatic. Eyes: EOMs are intact. Sclerae are anicteric and not pale. Throat: Oral mucosa appeared to be dry. No oropharyngeal erythema. NECK: Supple. LUNGS: Clear to auscultation bilaterally. No wheezes, rales, or rhonchi. HEART: Sounds S1 and S2. Regular rate and rhythm. No murmurs, rubs, or gallops. ABDOMEN: Soft, it was flat. He had no tenderness on my exam. Bowel sounds are present. EXTREMITIES: Pulses 2+ throughout. He is able to move all 4 extremities with 5 /5 strength. NEUROLOGIC: The patient is awake, is alert, is oriented x3. His tongue is midline. His predatory animal trapper were equal. He had no gross focal deficits. SKIN: Grossly intact. DIAGNOSTIC STUDIES/LAB DATA: Today revealed a WBC of 11.1, RBC of 4.23, hemoglobin 13.8, hematocrit of 39, platelet count of 272. The INR was 1.10, PTT was 30.0. Sodium 138, potassium 3.5, chloride of 107, bicarb 23, BUN 12, creatinine 0.93, glucose 134, lactate 1.5, calcium 9. Total bili 0.5, AST 31, ALT 50, alk phos . Troponin of 0.01. CK 175. Albumin 4.4. Urine showed 1+ blood, 2+ rbc's. He had an abdominal CT exam done on 07/06/17, which showed postsurgical changes of interval lesion, resection from the inferior pole of the left kidney without findings suspicious for local re-occurrence of metastatic disease, mild operative bed edema, granulation tissue, 1.1-cm enhancing subcapsular lesion at the right posterior hepatic segment. It was only mildly enlarged in 2010 consistent with benign etiology. Severe prostatomegaly. Negative for lymphadenopathy or suspicious osseous lesions. Old medical records were reviewed. ASSESSMENT AND PLAN: Mr. Crews is a 67-year-old male patient coming in to the ER today with complaints of recurrence of abdominal discomfort after being discharged 2 days ago. In addition to this, he is having a tarry stool. He will be admitted under observation status for: 1. Abdominal pain. Etiology is unclear. Certainly, could be gastroenteritis. Again, he is not having any discomfort now. After having bowel movement, he started having abdominal discomfort and also having some nausea and vomiting. His exam now is benign. I do not think he needs repeat imaging. I do think a GI consult is appropriate because of the tarry stool. I am going to give him IV Protonix, I do not think he needs a drip. On my rectal exam here in the ED, his stool does not appear to be black. We will get a Hemoccult and see if it is positive or negative and again I did get a GI consult, put him on PPI therapy , Protonix, put him on Flagyl, Cipro, Zofran, Compazine, and pain medications as needed. We will hydrate the patient, place him on clears and will continue to follow. Should his exam deteriorate, have any fevers, I have a low threshold for re-imaging. 2. Benign prostatic hyperplasia. Continue meds as prescribed. 3. History of renal cell carcinoma. Follow with his primary care doctor. 4. Hyperlipidemia. Follow with his primary. 5. DVT prophylaxis. He is high risk. He will be placed on heparin subcu. 6. Code status. He is full code. 7. Fluids, electrolytes, and nutrition. Clear liquid diet. TIME SPENT: On the admission was 60 minutes, greater than half the time was spent [id number] with the patient obtaining my history and physical, the other half time was spent going over the plan of care with the patient and implementing the plan of care. I discussed the plan of care with my attending, Dr. Cedillo; she is in agreement. SHYLA HUMPHREY NP [id number]/[facility] #: [id number] YURI
[2017-07-11] MEDS: Heparin VIAL(*) 5000 UNITS/ML VIAL (FIVE THOUSAND) SUBCUT SCH (23:09)
--- NOTE | 2017-07-12 00:28 | CONS ---
GASTROENTEROLOGY CONSULTATION DATE OF CONSULT: 07/11/17 REFERRING PHYSICIANS: Ashkan King MD; Yolande Coats MD. REASON FOR CONSULTATION: Repeated nausea and vomiting with negative CT of the abdomen. 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 today. He had slept well and got up initially feeling well okay. He had not had anything to eat, but was dressing for jainism when he describes diarrhea initially and then mid abdominal pain, and nausea and vomiting. He had just been in the hospital with similar symptoms, staying here 3 days from 07/06 to 07/09, discharged empirically on Cipro and Flagyl. He left the hospital feeling fine late afternoon of 07/09. He had some chicken soup he made at home, and slept well and the entire day 07/10/17, felt well, having a couple of bananas in the morning and then chicken soup throughout the day, and again he was fine and slept well. He has been also admitted with somewhat similar symptoms briefly in March and had much abdominal symptomatology in 2010 when he was here and had a cardiac catheterization. At home, he does not take any antacids. He denies aspirin. Advil, Aleve, and all the various names were tried and he responded, yet when he has a pain, he takes acetaminophen. 1. Constitutional leukocytosis - most all of his CBCs have shown an elevated white count. 2. Elevated PSA - describes having a doctor look inside and it seems likely that was a urologist. 3. History of left renal cancer - surgery at [facility] earlier this summer. MEDICATIONS: At home, tamsulosin. SOCIAL HISTORY: He moved here from [place]. REVIEW OF SYSTEMS: BPH on prior CT. He had a cardiac catheterization in 2010, which what was felt to be an illness that was acute gastroenteritis. He had a transient left bundle-branch block at that time. There was some coronary plaquing but nothing critical. There is no history of hepatitis. He had a low level positive hepatitis C antibody, but RNA level was negative. A history of past smoking. There is no history of asthma, TB, or hemoptysis. No history of rash. He has never had a colonoscopy. His bowel habit is regular, daily, and he never uses laxatives. PHYSICAL EXAMINATION: He is an engaging healthful historian in no overt distress at this time. He is afebrile. HEENT exam is unremarkable with no icterus. His lungs are clear. Heart sounds are regular. The abdomen is symmetric with normal bowel sounds, soft, and without any particular tenderness to deep palpation in all 4 quadrants. Perianal inspection is normal and rectal reveals no specimen and one of the rectal valves is quite prominent up about 5 cm. Extremities show no edema. Neurologic is nonfocal. IMPRESSION: Diarrhea, then nausea and vomiting, source unclear. He is an engaging, but somewhat vague historian, and at this point clearly some studies need to begin and a liver, gallbladder ultrasound and upper endoscopy will be first. [id number]/[facility] #: [id number] [facility]
[2017-07-12 05:52] LABS: Hematocrit 34 % (42-52); Hemoglobin 12.3 g/dl (14.0-18.0); Hemoglobin 12.5 g/dl (14.0-18.0); Mean Corpuscular HGB Conc 37 g/dl (31-36); Mean Corpuscular Hemoglobin 34 pg (27-31); Mean Corpuscular Volume 91 fL (80-94); Mean Platelet Volume 7 um3 (7.4-10.4); Red Blood Count 3.74 10^6/ul (4.0-5.4); Red Cell Distribution Width 15 % (10.5-15); White Blood Count 8.8 10^3/ul (3.5-10.8)
[2017-07-12 05:54] LABS: Comments Flag Yes
[2017-07-12] MEDS: Heparin VIAL(*) 5000 UNITS/ML VIAL (FIVE THOUSAND) SUBCUT SCH ×3 (05:58→21:29)
[2017-07-12] MEDS: metroNIDAZOLE TAB* 250 MG PO SCH ×3 (05:58→22:52)
[2017-07-12 06:06] LABS: Albumin 3.6 g/dL (3.2-5.2); BUN/Creatinine Ratio 7.7 (8-20); Calcium 8.4 mg/dL (8.6-10.3); Direct Bilirubin 0.1 mg/dL (0.03-0.18); EGFR African American 107.5 (>60); EGFR Non-African American 83.6 (>60); Globulin 2.5 g/dL (2-4); Indirect Bilirubin 0.5 mg/dL (0.3-1.0); Potassium 3.6 mmol/L (3.5-5.0); Total Bilirubin 0.6 mg/dL (0.2-1.0); Total Protein 6.1 g/dL (6.4-8.9)
--- NOTE | 2017-07-12 09:06 | RAD ---
INDICATION: Abdominal pain. COMPARISON: Comparison is made with prior CTs of the abdomen and pelvis from June 02, 2011, March 07, 2017 and July 06, 2017. TECHNIQUE: Multiple real-time images of the right upper quadrant were obtained. FINDINGS: The gallbladder appear normal. No gallbladder wall thickening or pericholecystic fluid is present. No intra or extrahepatic ductal distention is present. The common bile duct measured 0.6 cm in diameter. The liver is normal in size and overall echogenicity. There is a hyperechoic lesion present in the right hepatic lobe likely correlating with the hypervascular lesion noted on the prior CT studies. This measures 1.4 x 1.8 x 1.3 cm in size and is suggestive of a hemangioma. The right kidney is normal in size without evidence for hydronephrosis. IMPRESSION: 1. NORMAL EXAM OF THE GALLBLADDER. 2. HYPERECHOIC LESION IN THE RIGHT HEPATIC LOBE LIKELY CORRELATING WITH THE HYPERVASCULAR LESION NOTED ON THE PRIOR CT STUDIES. THIS MEASURES SLIGHTLY MORE PROMINENT THAN ON THE CT STUDIES RECOMMEND A FOLLOW-UP RIGHT UPPER QUADRANT ULTRASOUND IN 6 MONTHS TIME TO DEMONSTRATE STABILITY.
[2017-07-12] MEDS: Ciprofloxacin TAB* 500 MG PO SCH ×2 (09:36→21:29)
[2017-07-12] MEDS: Tamsulosin CAP* 0.4 MG PO SCH (09:36)
[2017-07-12] MEDS ORDERED: Morphine INJ* 4 MG/ML 1 ML CARPUJECT IV PRN (10:11)
--- NOTE | 2017-07-12 10:19 | PN ---
Subjective Date of Service: 07/12/17 Interval History: Patient seen and examined at bedside. He reports feeling much better this morning, like he did "when I was discharged last week." He describes severe abdominal pain on Wednesday morning following his AM bowel movement. He was able to keep down broth last night. Denies pain, n/v this AM. Denies fever/chills, CP , SOB. Objective Active Medications: Acetaminophen (Tylenol Tab*) 650 mg PO Q4H PRN PRN Reason: FEVER/PAIN Ciprofloxacin (Cipro Tab*) 500 mg PO Q12HR [facility] Last Admin: 07/12/17 09:36 Dose: Not Given Heparin Sodium (Porcine) (Heparin Vial(*)) 5,000 units SUBCUT Q8HR [facility] Last Admin: 07/12/17 05:58 Dose: Not Given Sodium Chloride (Ns 0.9% 1000 Ml*) 1,000 mls @ 125 mls/hr IV PER RATE [facility] Last Admin: 07/11/17 16:28 Dose: 125 mls/hr Metronidazole (Flagyl Tab*) 500 mg PO Q8H [facility] Last Admin: 07/12/17 05:58 Dose: 500 mg Morphine Sulfate (Morphine Inj (Syringe)*) 2 mg IV Q4H PRN PRN Reason: PAIN - MILD Ondansetron HCl (Zofran Inj*) 4 mg IV Q6H PRN PRN Reason: NAUSEA Last Admin: 07/11/17 17:53 Dose: 4 mg Pantoprazole Sodium (Protonix Iv*) 40 mg IV Q24H [facility] Last Admin: 07/11/17 16:29 Dose: 40 mg Prochlorperazine Edisylate (Compazine Inj*) 5 mg IV Q6H PRN PRN Reason: NAUSEA/VOMITING Tamsulosin HCl (Flomax Cap*) 0.4 mg PO DAILY [facility] Last Admin: 07/12/17 09:36 Dose: Not Given Vital Signs 07/11/17 07/11/17 07/11/17 14:49 15:00 15:35 Temperature 97.5 F 97.5 F Pulse Rate 52 49 52 Respiratory 14 14 Rate Blood Pressure 145/77 140/82 145/77 (mmHg) O2 Sat by Pulse 98 97 98 Oximetry 07/11/17 07/11/17 07/11/17 17:52 18:52 19:15 Temperature 98.4 F Pulse Rate 53 Respiratory 14 14 16 Rate Blood Pressure 125/74 (mmHg) O2 Sat by Pulse 100 Oximetry 07/11/17 07/11/17 07/11/17 19:40 19:52 22:01 Temperature 98.4 F Pulse Rate 53 Respiratory 16 14 16 Rate Blood Pressure 125/74 (mmHg) O2 Sat by Pulse 100 Oximetry 07/11/17 07/12/17 07/12/17 23:20 03:23 07:13 Temperature 97.9 F 98.6 F 98.6 F Pulse Rate 53 57 57 Respiratory 16 14 21 Rate Blood Pressure 135/71 116/59 131/74 (mmHg) O2 Sat by Pulse 99 99 96 Oximetry 07/12/17 08:04 Temperature Pulse Rate Respiratory Rate Blood Pressure (mmHg) O2 Sat by Pulse 99 Oximetry Oxygen Devices in Use Now: None Appearance: Pleasant, AA male, lying in bed, NAD Eyes: No Scleral Icterus Ears/Nose/Mouth/Throat: Clear Oropharnyx, Mucous Membranes Moist Neck: NL Appearance and Movements; NL JVP Respiratory: Symmetrical Chest Expansion and Respiratory Effort, Clear to Auscultation Cardiovascular: NL Sounds; No Murmurs; No JVD, RRR Abdominal: NL Sounds; No Tenderness; No Distention Extremities: No Edema Skin: No Rash or Ulcers Neurological: Alert and Oriented x 3, NL Muscle Strength and Tone Lines/Tubes/Other Access: Clean, Dry and Intact Peripheral IV Nutrition: Taking PO's Result Diagrams: 07/12/17 05:24 07/12/17 05:24 Additional Lab and Data: Lab Results 07/11/17 07/11/17 07/11/17 Range/Units 11:16 11:16 11:16 WBC 11.1 H (3.5-10.8) 10^3/ul RBC 4.23 (4.0-5.4) 10^6/ul Hgb 13.8 L (14.0-18.0) g/dl Hct 39 L (42-52) % MCV 93 (80-94) fL MCH 33 H (27-31) pg MCHC 35 (31-36) g/dl RDW 15 (10.5-15) % Plt Count 272 (150-450) 10^3/ul MPV 7 L (7.4-10.4) um3 Neut % (Auto) 86.0 H (38-83) % Lymph % (Auto) 8.1 L (25-47) % [place] % (Auto) 5.3 (1-9) % Eos % (Auto) 0.1 (0-6) % Baso % (Auto) 0.5 (0-2) % Absolute Neuts (auto) 9.5 H (1.5-7.7) 10^3/ul Absolute Lymphs (auto) 0.9 L (1.0-4.8) 10^3/ul Absolute Monos (auto) 0.6 (0-0.8) 10^3/ul Absolute Eos (auto) 0 (0-0.6) 10^3/ul Absolute Basos (auto) 0.1 (0-0.2) 10^3/ul Absolute Nucleated RBC 0 10^3/ul Nucleated RBC % 0 INR (Anticoag Therapy) 1.10 (0.89-1.11) APTT 30.0 (26.0-36.3) seconds Sodium 138 (133-145) mmol/L Potassium 3.5 (3.5-5.0) mmol/L Chloride 107 (101-111) mmol/L Carbon Dioxide 23 (22-32) mmol/L Anion Gap 8 (2-11) mmol/L BUN 12 (6-24) mg/dL Creatinine 0.93 (0.67-1.17) mg/dL Est GFR ( Amer) 104.9 (>60) Est GFR (Non-Af Amer) 81.5 (>60) BUN/Creatinine Ratio 12.9 (8-20) Glucose 134 H (70-100) mg/dL Lactic Acid (0.5-2.0) mmol/L Calcium 9.0 (8.6-10.3) mg/dL Total Bilirubin 0.50 (0.2-1.0) mg/dL AST 31 (13-39) U/L ALT 50 (7-52) U/L Alkaline Phosphatase 71 (34-104) U/L Total Creatine Kinase 175 (10-223) U/L CK-MB (CK-2) 2.0 (0.6-6.3) ng/mL Troponin I 0.01 (<0.04) ng/mL C-Reactive Protein 4.54 (< 5.00) mg/L Total Protein 7.4 (6.4-8.9) g/dL Albumin 4.4 (3.2-5.2) g/dL Globulin 3.0 (2-4) g/dL Albumin/Globulin Ratio 1.5 (1-3) Lipase 13 (11.0-82.0) U/L Urine Color Urine Appearance Urine pH (5-9) Ur Specific [place] (1.010-1.030) Urine Protein (Negative) Urine Ketones (Negative) Urine Blood (Negative) Urine Nitrate (Negative) Urine Bilirubin (Negative) Urine Urobilinogen (Negative) Ur Leukocyte Esterase (Negative) Urine WBC (Auto) (Absent) Urine RBC (Auto) (Absent) Urine Bacteria (Absent) Urine Glucose (Negative) Urine Ascorbic Acid 07/11/17 07/11/17 Range/Units 11:16 11:59 WBC (3.5-10.8) 10^3/ul RBC (4.0-5.4) 10^6/ul Hgb (14.0-18.0) g/dl Hct (42-52) % MCV (80-94) fL MCH (27-31) pg MCHC (31-36) g/dl RDW (10.5-15) % Plt Count (150-450) 10^3/ul MPV (7.4-10.4) um3 Neut % (Auto) (38-83) % Lymph % (Auto) (25-47) % [place] % (Auto) (1-9) % Eos % (Auto) (0-6) % Baso % (Auto) (0-2) % Absolute Neuts (auto) (1.5-7.7) 10^3/ul Absolute Lymphs (auto) (1.0-4.8) 10^3/ul Absolute Monos (auto) (0-0.8) 10^3/ul Absolute Eos (auto) (0-0.6) 10^3/ul Absolute Basos (auto) (0-0.2) 10^3/ul Absolute Nucleated RBC 10^3/ul Nucleated RBC % INR (Anticoag Therapy) (0.89-1.11) APTT (26.0-36.3) seconds Sodium (133-145) mmol/L Potassium (3.5-5.0) mmol/L Chloride (101-111) mmol/L Carbon Dioxide (22-32) mmol/L Anion Gap (2-11) mmol/L BUN (6-24) mg/dL Creatinine (0.67-1.17) mg/dL Est GFR ( Amer) (>60) Est GFR (Non-Af Amer) (>60) BUN/Creatinine Ratio (8-20) Glucose (70-100) mg/dL Lactic Acid 1.5 (0.5-2.0) mmol/L Calcium (8.6-10.3) mg/dL Total Bilirubin (0.2-1.0) mg/dL AST (13-39) U/L ALT (7-52) U/L Alkaline Phosphatase (34-104) U/L Total Creatine Kinase (10-223) U/L CK-MB (CK-2) (0.6-6.3) ng/mL Troponin I (<0.04) ng/mL C-Reactive Protein (< 5.00) mg/L Total Protein (6.4-8.9) g/dL Albumin (3.2-5.2) g/dL Globulin (2-4) g/dL Albumin/Globulin Ratio (1-3) Lipase (11.0-82.0) U/L Urine Color Yellow Urine Appearance Clear Urine pH 5.0 (5-9) Ur Specific [place] 1.020 (1.010-1.030) Urine Protein Negative (Negative) Urine Ketones Negative (Negative) Urine Blood 1+ H (Negative) Urine Nitrate Negative (Negative) Urine Bilirubin Negative (Negative) Urine Urobilinogen Negative (Negative) Ur Leukocyte Esterase Negative (Negative) Urine WBC (Auto) Absent (Absent) Urine RBC (Auto) 2+(6-10/hpf) H (Absent) Urine Bacteria Absent (Absent) Urine Glucose Negative (Negative) Urine Ascorbic Acid Not Reportable Microbiology and Other Data: Microbiology 07/11/17 14:47 Stool Occult Blood (ELE) - Final Stool Assess/Plan/Problems-Billing Assessment: Mr. Crews is a 67 yo male with a PMH of renal cell carcinoma, BPH, and HLD who presented to the ED on 07/11 with concern for recurrent abd pain with n/v. - Patient Problems (1) Abdominal pain Code(s): R10.9 - UNSPECIFIED ABDOMINAL PAIN Comment: Recently discharged, had received abx for suspected gastroenteritis With recurrence of pain following BM on Wednesday morning Pain now improved Plan for liver US, EGD today Continue Cipro and Flagyl, antiemetics, pantoprazole Appreciate GI consult (2) BPH (benign prostatic hyperplasia) Code(s): N40.0 - BENIGN PROSTATIC HYPERPLASIA WITHOUT LOWER URINRY TRACT SYMP Comment: Continue tamsulosin. (3) DVT prophylaxis Comment: SQ heparin. (4) Full code status Code(s): Z78.9 - OTHER SPECIFIED HEALTH STATUS Status and Disposition: OBV admit. Anticipate dc today or tomorrow.
[2017-07-12] MEDS ORDERED: fentaNYL* 50 MCG/ML 2 ML VIAL (100 MCG VIAL) ONE (11:47)
[2017-07-12] MEDS ORDERED: Midazolam* 1 MG/ML 10 ML VIAL (10 MG) ONE (11:47)
[2017-07-12] MEDS: Pantoprazole IV* 40 MG IV SCH (15:35)
[2017-07-13] MEDS: metroNIDAZOLE TAB* 250 MG PO SCH ×2 (06:27→14:29)
[2017-07-13] MEDS: Heparin VIAL(*) 5000 UNITS/ML VIAL (FIVE THOUSAND) SUBCUT SCH ×2 (06:28→14:07)
[2017-07-13 08:15] VITALS: BP 144/83
--- NOTE | 2017-07-13 09:21 | PN ---
Subjective Date of Service: 07/13/17 Family History: Unchanged from Admission Social History: Unchanged from Admission Past Medical History: Unchanged from Admission Objective Active Medications: Acetaminophen (Tylenol Tab*) 650 mg PO Q4H PRN PRN Reason: FEVER/PAIN Ciprofloxacin (Cipro Tab*) 500 mg PO Q12HR [facility] Last Admin: 07/12/17 21:29 Dose: 500 mg Heparin Sodium (Porcine) (Heparin Vial(*)) 5,000 units SUBCUT Q8HR [facility] Last Admin: 07/13/17 06:28 Dose: 5,000 units Sodium Chloride (Ns 0.9% 1000 Ml*) 1,000 mls @ 125 mls/hr IV PER RATE [facility] Last Admin: 07/11/17 16:28 Dose: 125 mls/hr Metronidazole (Flagyl Tab*) 500 mg PO Q8H [facility] Last Admin: 07/13/17 06:27 Dose: 500 mg Morphine Sulfate (Morphine Inj (Syringe)*) 2 mg IV Q4H PRN PRN Reason: PAIN - MILD Ondansetron HCl (Zofran Inj*) 4 mg IV Q6H PRN PRN Reason: NAUSEA Last Admin: 07/11/17 17:53 Dose: 4 mg Pantoprazole Sodium (Protonix Iv*) 40 mg IV Q24H [facility] Last Admin: 07/12/17 15:35 Dose: 40 mg Prochlorperazine Edisylate (Compazine Inj*) 5 mg IV Q6H PRN PRN Reason: NAUSEA/VOMITING Tamsulosin HCl (Flomax Cap*) 0.4 mg PO DAILY [facility] Last Admin: 07/12/17 09:36 Dose: Not Given Vital Signs 07/12/17 07/12/17 07/12/17 13:30 15:34 19:10 Temperature 98.2 F 98.0 F 98.6 F Pulse Rate 55 54 56 Respiratory 16 16 20 Rate Blood Pressure 133/81 164/91 141/72 (mmHg) O2 Sat by Pulse 99 100 100 Oximetry 07/12/17 07/13/17 07/13/17 21:38 00:01 00:14 Temperature 98.8 F Pulse Rate 59 Respiratory 16 16 Rate Blood Pressure 126/57 (mmHg) O2 Sat by Pulse 98 99 Oximetry 07/13/17 07:22 Temperature 98.2 F Pulse Rate 51 Respiratory 16 Rate Blood Pressure 144/83 (mmHg) O2 Sat by Pulse 100 Oximetry Oxygen Devices in Use Now: None Result Diagrams: 07/12/17 05:24 07/12/17 05:24 Additional Lab and Data: Lab Results 07/11/17 07/11/17 07/11/17 Range/Units 11:16 11:16 11:16 WBC 11.1 H (3.5-10.8) 10^3/ul RBC 4.23 (4.0-5.4) 10^6/ul Hgb 13.8 L (14.0-18.0) g/dl Hct 39 L (42-52) % MCV 93 (80-94) fL MCH 33 H (27-31) pg MCHC 35 (31-36) g/dl RDW 15 (10.5-15) % Plt Count 272 (150-450) 10^3/ul MPV 7 L (7.4-10.4) um3 Neut % (Auto) 86.0 H (38-83) % Lymph % (Auto) 8.1 L (25-47) % [place] % (Auto) 5.3 (1-9) % Eos % (Auto) 0.1 (0-6) % Baso % (Auto) 0.5 (0-2) % Absolute Neuts (auto) 9.5 H (1.5-7.7) 10^3/ul Absolute Lymphs (auto) 0.9 L (1.0-4.8) 10^3/ul Absolute Monos (auto) 0.6 (0-0.8) 10^3/ul Absolute Eos (auto) 0 (0-0.6) 10^3/ul Absolute Basos (auto) 0.1 (0-0.2) 10^3/ul Absolute Nucleated RBC 0 10^3/ul Nucleated RBC % 0 INR (Anticoag Therapy) 1.10 (0.89-1.11) APTT 30.0 (26.0-36.3) seconds Sodium 138 (133-145) mmol/L Potassium 3.5 (3.5-5.0) mmol/L Chloride 107 (101-111) mmol/L Carbon Dioxide 23 (22-32) mmol/L Anion Gap 8 (2-11) mmol/L BUN 12 (6-24) mg/dL Creatinine 0.93 (0.67-1.17) mg/dL Est GFR ( Amer) 104.9 (>60) Est GFR (Non-Af Amer) 81.5 (>60) BUN/Creatinine Ratio 12.9 (8-20) Glucose 134 H (70-100) mg/dL Lactic Acid (0.5-2.0) mmol/L Calcium 9.0 (8.6-10.3) mg/dL Total Bilirubin 0.50 (0.2-1.0) mg/dL AST 31 (13-39) U/L ALT 50 (7-52) U/L Alkaline Phosphatase 71 (34-104) U/L Total Creatine Kinase 175 (10-223) U/L CK-MB (CK-2) 2.0 (0.6-6.3) ng/mL Troponin I 0.01 (<0.04) ng/mL C-Reactive Protein 4.54 (< 5.00) mg/L Total Protein 7.4 (6.4-8.9) g/dL Albumin 4.4 (3.2-5.2) g/dL Globulin 3.0 (2-4) g/dL Albumin/Globulin Ratio 1.5 (1-3) Lipase 13 (11.0-82.0) U/L Urine Color Urine Appearance Urine pH (5-9) Ur Specific [place] (1.010-1.030) Urine Protein (Negative) Urine Ketones (Negative) Urine Blood (Negative) Urine Nitrate (Negative) Urine Bilirubin (Negative) Urine Urobilinogen (Negative) Ur Leukocyte Esterase (Negative) Urine WBC (Auto) (Absent) Urine RBC (Auto) (Absent) Urine Bacteria (Absent) Urine Glucose (Negative) Urine Ascorbic Acid 07/11/17 07/11/17 Range/Units 11:16 11:59 WBC (3.5-10.8) 10^3/ul RBC (4.0-5.4) 10^6/ul Hgb (14.0-18.0) g/dl Hct (42-52) % MCV (80-94) fL MCH (27-31) pg MCHC (31-36) g/dl RDW (10.5-15) % Plt Count (150-450) 10^3/ul MPV (7.4-10.4) um3 Neut % (Auto) (38-83) % Lymph % (Auto) (25-47) % [place] % (Auto) (1-9) % Eos % (Auto) (0-6) % Baso % (Auto) (0-2) % Absolute Neuts (auto) (1.5-7.7) 10^3/ul Absolute Lymphs (auto) (1.0-4.8) 10^3/ul Absolute Monos (auto) (0-0.8) 10^3/ul Absolute Eos (auto) (0-0.6) 10^3/ul Absolute Basos (auto) (0-0.2) 10^3/ul Absolute Nucleated RBC 10^3/ul Nucleated RBC % INR (Anticoag Therapy) (0.89-1.11) APTT (26.0-36.3) seconds Sodium (133-145) mmol/L Potassium (3.5-5.0) mmol/L Chloride (101-111) mmol/L Carbon Dioxide (22-32) mmol/L Anion Gap (2-11) mmol/L BUN (6-24) mg/dL Creatinine (0.67-1.17) mg/dL Est GFR ( Amer) (>60) Est GFR (Non-Af Amer) (>60) BUN/Creatinine Ratio (8-20) Glucose (70-100) mg/dL Lactic Acid 1.5 (0.5-2.0) mmol/L Calcium (8.6-10.3) mg/dL Total Bilirubin (0.2-1.0) mg/dL AST (13-39) U/L ALT (7-52) U/L Alkaline Phosphatase (34-104) U/L Total Creatine Kinase (10-223) U/L CK-MB (CK-2) (0.6-6.3) ng/mL Troponin I (<0.04) ng/mL C-Reactive Protein (< 5.00) mg/L Total Protein (6.4-8.9) g/dL Albumin (3.2-5.2) g/dL Globulin (2-4) g/dL Albumin/Globulin Ratio (1-3) Lipase (11.0-82.0) U/L Urine Color Yellow Urine Appearance Clear Urine pH 5.0 (5-9) Ur Specific [place] 1.020 (1.010-1.030) Urine Protein Negative (Negative) Urine Ketones Negative (Negative) Urine Blood 1+ H (Negative) Urine Nitrate Negative (Negative) Urine Bilirubin Negative (Negative) Urine Urobilinogen Negative (Negative) Ur Leukocyte Esterase Negative (Negative) Urine WBC (Auto) Absent (Absent) Urine RBC (Auto) 2+(6-10/hpf) H (Absent) Urine Bacteria Absent (Absent) Urine Glucose Negative (Negative) Urine Ascorbic Acid Not Reportable Microbiology and Other Data: Microbiology 07/11/17 14:47 Stool Occult Blood (ELE) - Final Stool Assess/Plan/Problems-Billing Assessment: Mr. Crews is a 67 yo male with a PMH of renal cell carcinoma, BPH, and HLD who presented to the ED on 07/11 with concern for recurrent abd pain with n/v. - Patient Problems (1) Abdominal pain Code(s): R10.9 - UNSPECIFIED ABDOMINAL PAIN Comment: Recently discharged, had received abx for suspected gastroenteritis With recurrence of pain following BM on Wednesday morning Pain now improved Plan for liver US, EGD today Continue Cipro and Flagyl, antiemetics, pantoprazole Appreciate GI consult (2) BPH (benign prostatic hyperplasia) Code(s): N40.0 - BENIGN PROSTATIC HYPERPLASIA WITHOUT LOWER URINRY TRACT SYMP Comment: Continue tamsulosin. (3) DVT prophylaxis Comment: SQ heparin. (4) Full code status Code(s): Z78.9 - OTHER SPECIFIED HEALTH STATUS Status and Disposition: OBV admit. Anticipate dc today or tomorrow.
[2017-07-13] MEDS: Ciprofloxacin TAB* 500 MG PO SCH (09:49)
[2017-07-13] MEDS: Tamsulosin CAP* 0.4 MG PO SCH (09:49)
--- NOTE | 2017-07-13 10:39 | PRO ---
CC: Dr. King * DATE OF PROCEDURE: 07/12/2017, inpatient room #412. PROCEDURE PERFORMED: EGD. INDICATION: Nausea and vomiting. MEDICATIONS GIVEN: 50 mcg IV Fentanyl and 8 mg IV Versed. PROCEDURE: After the EGD procedure, including the risks, benefits and alternatives, not limited to perforation, surgery, and/or were explained to Mr. Crews, written consent was then obtained. IV medication was given and a bite block was placed between the teeth. An Olympus gastroscope was then inserted into the patient's mouth, advanced down the esophagus, into the stomach , and into the distal duodenum. In the esophagus at the GE junction, the Z- line was intact. No erosive esophagitis, stricture or ring were seen. The scope was advanced through a widely patent GE junction into the body of the stomach. Retroflex view was unremarkable. Forward view did reveal a few small erosions, however no large ulcers. A biopsy was obtained for H. pylori. The scope was advanced through a widely patent pylorus, into the duodenal bulb, and into the distal duodenum, both of which did reveal mild duodenitis. Biopsies were obtained to evaluate for celiac disease. The scope was then withdrawn from the patient. He tolerated the procedure well and was returned to his hospital room in stable condition. IMPRESSION: 1. Complete upper endoscopy into the distal duodenum with biopsies. 2. Very mild gastritis, status post biopsy. 3. Duodenitis, status post biopsy. 4. No obvious etiology was seen for his nausea and vomiting. I will follow-up on the biopsies and report back to the patient at that time. [id number]/[facility] #: [id number] [facility]
[2017-07-13] MEDS: Pantoprazole IV* 40 MG IV SCH (14:29)
--- NOTE | 2017-07-14 08:44 | DS ---
AMENDED REPORT NOW INCLUDES COSIGNER DESIGNATION - ESIGNED BEFORE ADJUSTMENTS CC: Dr. King.* MEDICINE DISCHARGE SUMMARY: DATE OF ADMISSION: 07/11/17 DATE OF DISCHARGE: 07/13/17 PRIMARY CARE PHYSICIAN: Dr. King. PROVIDER: Pinky Puente NP ATTENDING PHYSICIAN: Dr. Savanna Purcell *(as dictated by Pinky Puente NP). CONSULTING PHYSICIAN: Dr. Galdino Tubbs. PRIMARY DISCHARGE DIAGNOSES: 1. Abdominal pain, suspect secondary to gastritis. 2. Previously diagnosed gastroenteritis, on previously prescribed antibiotic therapy. SECONDARY DISCHARGE DIAGNOSES: 1. Renal cell carcinoma, status post tumor resection. 2. Benign prostatic hyperplasia. 3. Hyperlipidemia. MEDICATIONS AT DISCHARGE: 1. Flagyl 500 mg q. 8 hours until completed. 2. Cipro 500 mg q. 12 hours until completed. 3. Tylenol 650 mg q. 4 hours p.r.n. 4. Zofran 4 mg q. 6 hours p.r.n. 5. Flomax 0.4 mg daily. New medications at discharge: 1. Carafate 1 g 30 minutes prior to meals. 2. Omeprazole 20 mg b.i.d. HOSPITAL COURSE OF STAY: For full details, please refer to the H and P provided by Dereck Caro, nurse practitioner, on 07/11/17. In summary, Mr. Crews is a 67-year-old male patient who was recently admitted from 07/06 to 07/09 with presumed gastroenteritis secondary to food poisoning. The patient was started on Cipro and Flagyl and sent home with antibiotics. He states that at home he was doing well, but on Wednesday morning after his morning bowel movement, he noticed significant abdominal pain. The patient came into the ER due to his extreme discomfort. He did have a GI consult and a liver ultrasound and an EGD was ordered for the patient. He was also started on IV Protonix, was checked for Hemoccult which was negative. The patient's liver ultrasound showed normal gallbladder and hyperechoic lesion in the right hepatic lobe which will require followup ultrasound in 6 months to demonstrate stability. The patient's EGD which was performed on 07/12/17 showed very mild gastritis and duodenitis. Biopsies were taken from both sites. The patient tolerated well. He was able to tolerate regular food that evening and the following morning on 07/13/17. The patient's CLOtest was negative and his gastric and duodenal biopsies showed antral type gastric mucosa with moderate chronic gastritis and benign small intestinal mucosa with no significant pathologic abnormalities. The patient has been afebrile. He is tolerating food. He is not complaining of abdominal pain. We did discuss with the patient keeping a food diary as well as foods to avoid with gastritis. The patient has also been prescribed omeprazole and Carafate to treat the gastritis and has been advised to follow up with his PCP. Further outpatient testing could be done as needed. The patient is in agreement with the plan and his also feels that this is reasonable. She feels that he does eat a lot of spicy foods and the patient does admit to drinking sometimes up to 4 to 5 cups of coffee per day. He denies any alcohol use, but does eat a lot of irritating foods. The patient's also noticed that he has had pasta each time he has had a flare up of abdominal pain and wonders if this may be one of these things that the patient is unable to tolerate. She will continue to monitor and help the patient track foods to see if a pattern may be identified. PHYSICAL EXAMINATION: At the time of discharge, the patient's vital signs: Temperature 98.2, pulse rate 52, respiratory rate 16, blood pressure 144/83, and O2 saturation 100% on room air. HEENT: Head is atraumatic and normocephalic. Face is symmetrical. Pupils are equal. Extraocular movements are intact. Oral mucosa is moist. Neck is supple. Lungs are clear to auscultation. Cardiac: S1 and S2. Heart sounds regular, rate, and rhythm. Abdomen is soft, nontender, and nondistended. There is no rebound tenderness. Bowel sounds are present times all 4 quadrants. The patient moves all extremities. There is no peripheral edema. Skin appears grossly intact. Neuro : The patient is alert and oriented x3. CONCERNS AT DISCHARGE: Mr. Crews was discharged to home on 07/13/17. He is to follow up with his PCP and with GI as needed. He has been advised to keep a food diary and to continue with Carafate and omeprazole for treatment of gastritis. DIET: Heart healthy diet. The patient received education for diet for stomach ulcers and gastritis. ACTIVITY: As tolerated. CONDITION: Improved, stable. DISPOSITION: To home. TIME SPENT: Time spent on this discharge was approximately 45 minutes. Again, this is only a brief summary of the patient's hospital course of stay. For full details, please refer to the full medical record. If you have any further questions or need further assistance, please feel free to contact me at [phone]. PINKY PUENTE NP [id number]/[facility] #: [id number] YURI
== END 2017-07-13 15:10 | disposition home or self-care (01) ==
LOC: ED 09:25 → MED 14:46
PROVIDERS: ADMIT Hospitalist; ATTEND Internal Medicine
DX: R10.84 Generalized abdominal pain (principal); R11.2 Nausea with vomiting, unspecified; K29.50 Unspecified chronic gastritis without bleeding; Z87.891 Personal history of nicotine dependence; E78.5 Hyperlipidemia, unspecified; Z85.528 Personal history of other malignant neoplasm of kidney; N40.0 Benign prostatic hyperplasia without lower urinary tract symptoms; Z79.899 Other long term (current) drug therapy
CPT/HCPCS: 36415; 76705; 80048; 80053; 80076; 81003; 81015; 82270; 82272; 82550; 82553; 83605; 83690; 84484; 85014; 85018; 85025; 85610; 85730; 86140; 87077; 88305; 88342; 94760; 96374; 96375; 96376; 99156; 99157; 99283; A9270-GY; G0378; J1170; J1644; J2250; J2270; J2405; J3010

== ENCOUNTER 2017-09-24 09:56 | Observation (INO) | payer BC ==
[2017-09-24] MEDS ORDERED: NS 0.9% 1000 ML* 1,000 ML IV ONE (10:19)
[2017-09-24] MEDS ORDERED: Morphine INJ* 4 MG/ML 1 ML CARPUJECT IV ONE ×2 (10:19→12:14)
[2017-09-24] MEDS ORDERED: Ondansetron INJ* 2 MG/ML VIAL IV ONE ×2 (10:19→12:16)
[2017-09-24 11:05] LABS: Hematocrit 41 % (42-52); Hemoglobin 14.1 g/dl (14.0-18.0); Mean Corpuscular HGB Conc 34 g/dl (31-36); Mean Corpuscular Hemoglobin 32 pg (27-31); Mean Corpuscular Volume 93 fL (80-94); Mean Platelet Volume 7 um3 (7.4-10.4); Red Blood Count 4.45 10^6/ul (4.0-5.4); Red Cell Distribution Width 15 % (10.5-15); White Blood Count 16.5 10^3/ul (3.5-10.8)
[2017-09-24 11:22] LABS: ALT 21 U/L (7-52); Albumin 4.3 g/dL (3.2-5.2); Alkaline Phosphatase 93 U/L (34-104); Amylase 92 U/L (29-103); BUN/Creatinine Ratio 10.8 (8-20); Blood Urea Nitrogen 10 mg/dL (6-24); C Reactive Protein 1.52 mg/L (< 5.00); CO2 Carbon Dioxide 22 mmol/L (22-32); Calcium 9.8 mg/dL (8.6-10.3); Chloride 106 mmol/L (101-111); EGFR African American 104.9 (>60); EGFR Non-African American 81.5 (>60); Globulin 3.5 g/dL (2-4); Glucose 146 mg/dL (70-100); Lipase 13 U/L (11.0-82.0); Sodium 137 mmol/L (133-145); Total Protein 7.8 g/dL (6.4-8.9)
[2017-09-24 11:23] LABS: Troponin I 0.01 ng/mL (<0.04)
[2017-09-24 11:30] LABS: Anion Gap 9 mmol/L (2-11)
[2017-09-24] MEDS ORDERED: Iohexol 300* (CONTRAST) 10 ML SDV IV ONE (11:59)
[2017-09-24] MEDS ORDERED: Ondansetron INJ* 2 MG/ML VIAL ONE (12:18)
[2017-09-24 12:20] LABS: Urine Bilirubin Negative (Negative); Urine Glucose Negative (Negative); Urine Nitrite Negative (Negative)
--- NOTE | 2017-09-24 13:04 | RAD ---
CLINICAL HISTORY: Abdominal pain. Relevant surgical history includes kidney tumor resection. COMPARISON: Most recent comparison CT is dated July 06, 2017 TECHNIQUE: Contrast enhanced CT examination of the abdomen and pelvis from the lung bases through the initial tuberosities. The patient received 121 mL Omnipaque 300 intravenously prior to imaging.The patient received oral contrast as well prior to imaging. FINDINGS: Unless otherwise specified comparisons below reference to July 06, 2017 CT examination. VISUALIZED LUNG BASES: The visualized lung bases are grossly clear. There is no pleural effusion. ABDOMEN AND PELVIS: Again seen along the subcapsular right lobe of the liver is a hyperattenuating focus measuring 1.5 cm corresponding to a similar finding on the June 02, 2011 CT examination and therefore most likely a benign hemangioma. The liver is otherwise homogenous in attenuation. The spleen, pancreas and adrenal glands are grossly normal in appearance. The gallbladder is normal. Again seen is a subcentimeter focal hypodensity at the mid-level right renal cortex unchanged since the prior CT examination and slightly larger when compared to the 2011 CT examination. Otherwise the kidneys are normal in appearance without focal mass, calcification or signs of hydronephrosis. There is prompt and symmetric excretion on the delayed phase imaging. The oral contrast as progressed only to the proximal small bowel which limits evaluation of the more distal small bowel and colon. The small and large bowel are not distended. The patient's normal appendix is identified in the right lower quadrant measuring up to 5 mm in diameter (coronal image 47). Again seen are scattered diverticula at the cecum without focal inflammatory change or local wall thickening. There are scattered rectosigmoid diverticula as well but none exhibit focal inflammatory change. There is no gross retroperitoneal or mesenteric lymphadenopathy. The prostate is enlarged measuring 5 x 6.8 cm in the axial plane and 5.4 cm in greatest cephalocaudal dimension. The abdominal aorta and iliac arteries are normal in course and diameter. Degenerative changes include multilevel loss of intervertebral disc height involving the lower thoracic and lumbar spine.There are no sinister bone lesions. IMPRESSION: 1. Colonic diverticula without focal inflammatory change characteristic of acute diverticulitis. 2. Prostatomegaly. 3. Additional chronic and degenerative changes described in body the report.
[2017-09-24] MEDS ORDERED: Metoclopramide IV* 5 MG/ML 2 ML VIAL IV ONE (13:39)
[2017-09-24] MEDS ORDERED: Metoclopramide IV* 5 MG/ML 2 ML VIAL ONE (13:40)
[2017-09-24] MEDS ORDERED: Ondansetron INJ* 2 MG/ML VIAL IV PRN (14:44)
[2017-09-24] MEDS ORDERED: Morphine INJ* 2 MG/ML 1 ML SYRINGE (TWO MG - NEW SYRINGE VERSION) IV PRN (14:47)
[2017-09-24] MEDS: Sucralfate TAB* 1 GM PO SCH (16:30)
[2017-09-24] MEDS: Pantoprazole IV* 40 MG IV SCH (17:41)
--- NOTE | 2017-09-24 18:04 | HP ---
CC: Dr. King * [facility] MEDICINE HISTORY AND PHYSICAL: DATE OF ADMISSION: 09/24/17 PRIMARY CARE PHYSICIAN: Dr. King. ATTENDING PHYSICIAN: Dr. Yolande Coats * (dictation provided by Kassie Solis NP ). CHIEF COMPLAINT: Nausea, vomiting, and abdominal pain. HISTORY OF PRESENT ILLNESS: Mr. Crews is a 67-year-old male with a past medical history of 3 admissions to our hospital with similar symptoms of nausea , vomiting, and abdominal pain, most recently attributed to possible gastritis during last admission in July of 2017. He presents today with concern for a sudden onset of nausea, vomiting, and abdominal pain at 6 a.m. this morning. The patient is somewhat sedated after receiving pain medications and much of this history is obtained from his live-in girlfriend who is at the bedside today. Per the report, the patient was in his normal state of health yesterday. He had no discomfort or nausea. He ate sea food with his girlfriend who has had no GI symptoms. The patient went to bed and was feeling well. He woke up and then at about 6 a.m., he had a sudden onset of feeling cold with diaphoresis and then abdominal pain, nausea, and vomiting. He has had about 2 to 3 bowel movements this morning, but they are reported as being soft and not loose. The patient presented to the emergency room for evaluation. I will note that the patient was discharged to home on omeprazole and Carafate, but the patient's girlfriend said that he has stopped taking these medications as he ran out and there were no further refills. In the emergency room, Mr. Crews had a CT abdomen and pelvis, which showed no acute abnormality. His vital signs were stable. He is not tachycardic or febrile. He has a mild leukocytosis, white blood cell count of 16.5. PAST MEDICAL HISTORY: 1. Concern for possible gastritis, three admissions to the hospital this year. 2. BPH. 3. Hyperlipidemia. 4. Renal cell carcinoma, status post tumor resection. 5. EGD performed 07/13/17, showing very mild gastritis and duodenitis. MEDICATIONS: Tamsulosin daily. ALLERGIES: No known drug allergies. FAMILY HISTORY: The patient states that his mother at 92 of old age. His father at 77 related to a stroke. He had a sister who who was autistic. He had another sister of a stroke. He had a third sister who of unknown causes and multiple brothers who related to excessive alcoholism. SOCIAL HISTORY: The patient is a former smoker, he quit about 10 years ago. He smokes marijuana on a daily basis. Denies alcohol use. He states that his girlfriend, Evette would be his healthcare proxy. REVIEW OF SYSTEMS: Unobtainable as the patient is sedated at this time, but he is currently denying any complaints. PHYSICAL EXAMINATION GENERAL: Mr. Crews is lying in bed, he is in no acute distress. VITAL SIGNS: Temperature 98.3, pulse rate 73, respiratory rate is 25, O2 saturation is 95%, and blood pressure 103/60. HEENT: Extraocular movements are intact. LUNGS: Clear to auscultation bilaterally with no accessory muscle use and good aeration. HEART: S1, S2. No murmur, rub, or gallop and regular. ABDOMEN: Soft, nontender. Bowel sounds positive x4. EXTREMITIES: No cyanosis or edema. NEURO: He awakens easily to the voice and will speak in short sentences, but then just falls back to sleep. He moves all extremities equally. There is no facial asymmetry or focal weakness. SKIN: Intact. DIAGNOSTIC STUDIES/LAB DATA: Sodium 137, potassium is clotted, chloride 106, serum bicarbonate 22, BUN 10, creatinine 0.93, glucose 146, lactic acid 1.6. Troponin 0.01. CRP 1.52. WBC is 16.5, hemoglobin 14.1, hematocrit 41, platelet count 279. Urine shows no evidence of infection. Again, CT abdomen and pelvis is read as follows. "Colonic diverticula without focal inflammatory change, characteristic of acute diverticulitis, prostatomegaly, additional chronic and degenerative changes described in the body of the report." ASSESSMENT: Ms. Cerws is a 67-year-old male with past medical history of benign prostatic hyperplasia and renal carcinoma as well as 3 admissions to the hospital this year for nausea, vomiting, and abdominal pain, in the past attributed to gastritis, who presents again today with sudden onset of nausea, vomiting, and abdominal pain. Our plans are for observation in the hospital for the followin. Nausea, vomiting, and abdominal pain: I note the patient had EGD during the last hospitalization, which only showed mild gastritis. He seems to have had been completely symptom free despite being off his omeprazole and Carafate until suddenly this morning he had the onset of symptoms again. Based on the description and sudden nature and cyclical nature of his symptoms, I question whether or not he has cyclical vomiting syndrome. He does also smoke cannabis on a daily basis, which could be contributing to his symptoms, although I do not think that his description is completely characteristic of this syndrome. Regardless, plan to resume his omeprazole and Carafate. He will have IV fluids over-night. He will have Zofran available p.r.n. as well as morphine for pain. We will attempt to advance his diet as possible. He does meet sepsis criteria by SIRS at this point with elevated white blood cell count and respiratory rate. I do not think he is septic or bacteremic and I think which is a secondary response to his nausea and vomiting with abdominal pain. His lactic acid is normal. Blood cultures were ordered. I will not be ordering antibiotics as I do not think there is an active infection. 2. Benign prostatic hyperplasia: Continue tamsulosin. 3. Code status is full code. TIME SPENT: Approximately 60 minutes was spent on the admission of this patient ; more than half of the time was spent with the patient at the bedside reviewing the events leading up to this hospitalization, performing the physical examination, and reviewing my plan of care. KASSIE SOLIS NP [id number]/[facility] #: [id number] YURI
[2017-09-24] MEDS: NS 0.9% 1000 ML* 1,000 ML IV SCH (19:30)
[2017-09-24] MEDS: Heparin VIAL(*) 5000 UNITS/ML VIAL (FIVE THOUSAND) SUBCUT SCH (22:14)
[2017-09-25] MEDS: NS 0.9% 1000 ML* 1,000 ML IV SCH (06:27)
[2017-09-25] MEDS: Pantoprazole IV* 40 MG IV SCH (06:27)
[2017-09-25] MEDS: Heparin VIAL(*) 5000 UNITS/ML VIAL (FIVE THOUSAND) SUBCUT SCH ×2 (06:27→15:26)
[2017-09-25 06:32] LABS: Hematocrit 37 % (42-52); Hemoglobin 13.2 g/dl (14.0-18.0); Mean Corpuscular HGB Conc 36 g/dl (31-36); Mean Corpuscular Hemoglobin 32 pg (27-31); Mean Corpuscular Volume 90 fL (80-94); Mean Platelet Volume 7 um3 (7.4-10.4); Red Blood Count 4.11 10^6/ul (4.0-5.4); Red Cell Distribution Width 15 % (10.5-15); White Blood Count 12.8 10^3/ul (3.5-10.8)
--- NOTE | 2017-09-25 07:20 | ED ---
Aga Ndiaye Gabriel scribed for Hamzah Kramer MD on 09/24/17 at 1033 . Abdominal Pain/Male - HPI Summary HPI Summary: This patient is a 67 year old M presenting to [facility] accompanied by family with a chief complaint of ABD since 6:00 this morning. The patient rates the pain 10/ 10 in severity and located in his periumbilical region. Patient reports vomiting. Patient denies any unusual foods in his diet in the past day. He has a similar episode recently. - History of Current Complaint Chief Complaint: EDAbdPain Stated Complaint: ABD PAIN Time Seen by Provider: 09/24/17 10:10 Hx Obtained From: Patient, Family/Disk Sharpener Onset/Duration: Still Present Timing: Constant Severity Currently: Severe Pain Intensity: 10 Pain Scale Used: 0-10 Numeric Location: Umbilical Associated Signs And Symptoms: Positive: Vomiting - Allergies/Home Medications Allergies/Adverse Reactions: Allergies Allergy/AdvReac Type Severity Reaction Status Date / Time No Known Allergies Allergy Verified 07/06/17 15:35 PMH/Surg Hx/FS Hx/Imm Hx Previously Healthy: No Endocrine/Hematology History: Denies: Hx Diabetes Cardiovascular History: Reports: Other Cardiovascular Problems/Disorders - Hyperlipidemia Denies: Hx Hypertension History: Reports: Hx Benign Prostatic Hyperplasia, Other Problems/ Disorders - Kidney CA, Kidney tumor resection Denies: Hx Renal Disease Sensory History: Denies: Hx Contacts or Glasses, Hx Hearing Aid Opthamlomology History: Denies: Hx Contacts or Glasses - Cancer History Cancer Type, Location and Year: Kidney CA - Surgical History Surgery Procedure, Year, and Place: Kidney tumor resection, 2017 Infectious Disease History: No Infectious Disease History: Denies: History Other Infectious Disease, Traveled Outside the [place] in Last 30 Days - Family History Known Family History: Negative: Cardiac Disease, Hypertension - Social History Alcohol Use: Occasionally Hx Substance Use: Yes Substance Use Type: Reports: Marijuana Substance Use Comment - Amount & Last Used: "Daily" Hx Tobacco Use: Yes Smoking Status (MU): Former Smoker Review of Systems Negative: Fever Positive: Abdominal Pain All Other Systems Reviewed And Are Negative: Yes Physical Exam - Summary Physical Exam Summary: VITAL SIGNS: Reviewed. GENERAL: Patient is not in any acute respiratory distress. Patient is an elderly male in acute distress due to the pain. HEAD AND FACE: Normocephalic and atraumatic. EYES: PERRLA, EOMI x 2, No injected conjunctiva. EARS: Hearing grossly intact. Ear canals and tympanic membranes are WNL. MOUTH: Oropharynx within normal limits. NECK: Supple, trachea is midline, no adenopathy, no JVD. CHEST: Symmetric, no tenderness at palpation LUNGS: Clear to auscultation bilaterally. No wheezing or crackles. CVS: RRR, S1 and S2 present, no murmurs or gallops appreciated. ABDOMEN: Soft, non-tender. No signs of distention. Positive bowel sounds. No rebound no guarding, and no masses palpated. No abdominal bruit or pulsations. EXTREMITIES: FROM in all major joints, no edema, no cyanosis or clubbing. NEURO: Alert and oriented x 3. No acute neurological deficits. Speech is normal. SKIN: Dry and warm Triage Information Reviewed: Yes Vital Signs On Initial Exam: Initial Vitals Temp Pulse Resp BP Pulse Ox 98.3 F 50 20 138/89 99 09/24/17 09:58 09/24/17 09:58 09/24/17 09:58 09/24/17 09:58 09/24/17 09:58 Vital Signs Reviewed: Yes - Kathleen Coma Scale Coma Scale Total: 15 Diagnostics - Vital Signs Vital Signs Temp Pulse Resp BP Pulse Ox 09/24/17 09:58 98.3 F 50 20 138/89 99 - Laboratory Lab Results: Lab Results 09/24/17 09/24/17 09/24/17 Range/Units 10:52 10:52 10:52 WBC 16.5 H (3.5-10.8) 10^3/ul RBC 4.45 (4.0-5.4) 10^6/ul Hgb 14.1 (14.0-18.0) g/dl Hct 41 L (42-52) % MCV 93 (80-94) fL MCH 32 H (27-31) pg MCHC 34 (31-36) g/dl RDW 15 (10.5-15) % Plt Count 279 (150-450) 10^3/ul MPV 7 L (7.4-10.4) um3 Neut % (Auto) 81.3 (38-83) % Lymph % (Auto) 12.4 L (25-47) % [place] % (Auto) 5.4 (1-9) % Eos % (Auto) 0.1 (0-6) % Baso % (Auto) 0.8 (0-2) % Absolute Neuts (auto) 13.4 H (1.5-7.7) 10^3/ul Absolute Lymphs (auto) 2.0 (1.0-4.8) 10^3/ul Absolute Monos (auto) 0.9 H (0-0.8) 10^3/ul Absolute Eos (auto) 0 (0-0.6) 10^3/ul Absolute Basos (auto) 0.1 (0-0.2) 10^3/ul Absolute Nucleated RBC 0 10^3/ul Nucleated RBC % 0 Sodium 137 (133-145) mmol/L Potassium TNP Chloride 106 (101-111) mmol/L Carbon Dioxide 22 (22-32) mmol/L Anion Gap 9 (2-11) mmol/L BUN 10 (6-24) mg/dL Creatinine 0.93 (0.67-1.17) mg/dL Est GFR ( Amer) 104.9 (>60) Est GFR (Non-Af Amer) 81.5 (>60) BUN/Creatinine Ratio 10.8 (8-20) Glucose 146 H (70-100) mg/dL Lactic Acid (0.5-2.0) mmol/L Calcium 9.8 (8.6-10.3) mg/dL Total Bilirubin 0.60 (0.2-1.0) mg/dL AST TNP ALT 21 (7-52) U/L Alkaline Phosphatase 93 (34-104) U/L Ammonia TNP Troponin I 0.01 (<0.04) ng/mL C-Reactive Protein 1.52 (< 5.00) mg/L Total Protein 7.8 (6.4-8.9) g/dL Albumin 4.3 (3.2-5.2) g/dL Globulin 3.5 (2-4) g/dL Albumin/Globulin Ratio 1.2 (1-3) Amylase 92 (29-103) U/L Lipase 13 (11.0-82.0) U/L Urine Color Urine Appearance Urine pH (5-9) Ur Specific [place] (1.010-1.030) Urine Protein (Negative) Urine Ketones (Negative) Urine Blood (Negative) Urine Nitrate (Negative) Urine Bilirubin (Negative) Urine Urobilinogen (Negative) Ur Leukocyte Esterase (Negative) Urine Glucose (Negative) Urine Ascorbic Acid (Negative) 09/24/17 09/24/17 Range/Units 10:52 12:00 WBC (3.5-10.8) 10^3/ul RBC (4.0-5.4) 10^6/ul Hgb (14.0-18.0) g/dl Hct (42-52) % MCV (80-94) fL MCH (27-31) pg MCHC (31-36) g/dl RDW (10.5-15) % Plt Count (150-450) 10^3/ul MPV (7.4-10.4) um3 Neut % (Auto) (38-83) % Lymph % (Auto) (25-47) % [place] % (Auto) (1-9) % Eos % (Auto) (0-6) % Baso % (Auto) (0-2) % Absolute Neuts (auto) (1.5-7.7) 10^3/ul Absolute Lymphs (auto) (1.0-4.8) 10^3/ul Absolute Monos (auto) (0-0.8) 10^3/ul Absolute Eos (auto) (0-0.6) 10^3/ul Absolute Basos (auto) (0-0.2) 10^3/ul Absolute Nucleated RBC 10^3/ul Nucleated RBC % Sodium (133-145) mmol/L Potassium Chloride (101-111) mmol/L Carbon Dioxide (22-32) mmol/L Anion Gap (2-11) mmol/L BUN (6-24) mg/dL Creatinine (0.67-1.17) mg/dL Est GFR ( Amer) (>60) Est GFR (Non-Af Amer) (>60) BUN/Creatinine Ratio (8-20) Glucose (70-100) mg/dL Lactic Acid 1.6 (0.5-2.0) mmol/L Calcium (8.6-10.3) mg/dL Total Bilirubin (0.2-1.0) mg/dL AST ALT (7-52) U/L Alkaline Phosphatase (34-104) U/L Ammonia Troponin I (<0.04) ng/mL C-Reactive Protein (< 5.00) mg/L Total Protein (6.4-8.9) g/dL Albumin (3.2-5.2) g/dL Globulin (2-4) g/dL Albumin/Globulin Ratio (1-3) Amylase (29-103) U/L Lipase (11.0-82.0) U/L Urine Color Yellow Urine Appearance Clear Urine pH 5.0 (5-9) Ur Specific [place] 1.018 (1.010-1.030) Urine Protein Negative (Negative) Urine Ketones Trace H (Negative) Urine Blood Negative (Negative) Urine Nitrate Negative (Negative) Urine Bilirubin Negative (Negative) Urine Urobilinogen Negative (Negative) Ur Leukocyte Esterase Negative (Negative) Urine Glucose Negative (Negative) Urine Ascorbic Acid * H (Negative) Result Diagrams: 09/24/17 10:52 09/24/17 10:52 Lab Statement: Any lab studies that have been ordered have been reviewed, and results considered in the medical decision making process. - CT CT ABD/Pelvis CT Interpretation Completed By: Radiologist - 1. Colonic diverticula without focal inflammatory change characteristic of acute diverticulitis. 2. Prostatomegaly. 3. Additional chronic and degenerative changes described in body the report. ED physician has reviewed this radiology report and agrees. - EKG 10:36 Cardiac Rate: Bradycardia EKG Rhythm: Sinus Bradycardia - 48 BPM EKG Interpretation: no ST elevations EKG Comparison: No Significant Change - In comparison to EKG from 07/16/17 Abdominal Pain Fem Course/Dx - Course Assessment/Plan: In the ED course an IV access was obtained. Patient was placed in a monitoring tech. Patient was started with IV fluids. He was given Zofran for nausea and Morphine for pain. Patient has hx of Renal Cell CA, BPH therefore I decided to order an Abdominal and pelvic CT. Labs without any significant abnormality except for WBCs 16.5 w/o bandemia. Glucose 146,. Troponin #1: and Troponin # 2 (4 hours later): EKG shows a NSR at w/o ST elevations. CXR impression: No acute pathology. Abdominal and pelvic CT impression: 1. Colonic diverticula without focal inflammatory change characteristic of acute. diverticulitis. 2. Prostatomegaly. 3. Additional chronic and degenerative changes described in body the report. After medications patient symptoms have improved. I believe patient's pain may be due to gastroenteritis. We r/o appendicitis, diverticulitis, pancreatitis, ureterolithiasis, or renal colic. Patient reported he continues to be nauseous and he vomited again in the ED. Therefore, I discuss my physical exam, findings and test results with Dr. Gardner from the hospitalist services and she agrees to admit patient to his services. Patient is hemodynamically stable alert and oriented x 3. - Diagnoses Differential Diagnosis/HQI/PQRI: Appendicitis, Bowel Obstruction, Constipation, Diverticulitis, Gall Bladder Disease, Ischemic Bowel, Testicular Torsion, Ureteral Stone, Urinary Tract Infection Provider Diagnoses: Diffuse abdominal pain, Intractable nausea and vomiting - Provider Notifications Discussed Care Of Patient With: Yolande Gardner Time Discussed With Above Provider: 13:39 Instructed by Provider To: Other - Discussed patient care with Dr. Gardner, hospitalist. Who has agreed to admit the patient. Discharge - Discharge Plan Condition: Stable Disposition: ADMITTED TO [facility] Patient Education Materials: Abdominal Pain (ED) Referrals: Ashkan King MD [Primary Care Provider] - 3 Days Additional Instructions: Please return to the emergency department for new or worsening symptoms. The documentation as recorded by the Aga wray Gabriel accurately reflects the service I personally performed and the decisions made by me, Hamzah Kramer MD.
[2017-09-25] MEDS: Sucralfate TAB* 1 GM PO SCH ×2 (08:25→12:14)
[2017-09-25] MEDS ORDERED: Tamsulosin CAP* 0.4 MG PO SCH (09:00)
--- NOTE | 2017-09-25 10:10 | PN ---
Progress Note - Progress Note Date of Service: 09/25/17 Note: Discharge Note; Primary Diagnosis: recurrent vomiting, potential medication side effect Secondary Diagnosis: hyperammonemia leukocytosis BPH Consultations: none Procedures: none Pertinent Test Results: Laboratory Tests 09/24/17 09/24/17 09/24/17 10:52 10:52 10:52 WBC 16.5 H Hgb Hct Plt Count Potassium Glucose 146 H Lactic Acid 1.6 Ammonia Lipase 13 09/25/17 09/25/17 09/25/17 01:17 06:22 06:22 WBC 12.8 H Hgb 13.2 L Hct 37 L Plt Count 261 Potassium 3.7 Glucose Lactic Acid Ammonia [address] abdo/pelvis: no obstruction, diverticulosis, not diverticulitis Tests pending on discharge; none Physical Exam: Selected Entries 09/25/17 11:26 Temperature 37.1 C Pulse Rate 55 Respiratory 16 Rate Blood Pressure 128/63 (mmHg) O2 Sat by Pulse 100 Oximetry
[2017-09-25 11:39] VITALS: BP 128/63
--- NOTE | 2017-09-25 20:45 | DS ---
CC: Dr. King DISCHARGE SUMMARY: DATE OF ADMISSION: 09/24/17 DATE OF DISCHARGE: 09/25/17 PRIMARY DIAGNOSIS: Recurrent intractable vomiting, possible cyclic vomiting syndrome. SECONDARY DIAGNOSES: 1. History of gastritis. 2. Benign prostatic hypertrophy. 3. Hyperlipidemia 4. History of renal cell carcinoma, status post resection. MEDICATIONS ON DISCHARGE: 1. Omeprazole 20 mg p.o. q. day. 2. Ondansetron 4 mg p.o. q.6 hours p.r.n. nausea. 3. Tamsulosin 0.4 mg p.o. q. day. HOSPITAL COURSE: The patient was admitted for the third time this year with recurrent vomiting. The patient was managed with intravenous fluids and IV Zofran as needed. CT scan completed on show ed colonic diverticula without diverticulitis as well as a large prostate. There is an abnormality i n the right renal cortex, which is unchanged. Presumably, the patient has subtotal nephrectomy becau se he still has two kidneys. The patient was observed overnight and he had no further vomiting after an ER stay. The patient was advised to stop the use of marijuana, because this has been known to cau se cyclic vomiting. He also was advised to stop other herbal medications he reported, as this may be a medication side effect. The tests of interest on admission include a white count of 16.5, that re duced to 12.8 on the next day. His hematocrit was 37% on discharge. The platelets were normal at 25 1. His electrolytes were all normal. On admission, glucose 146, lactic acid 1.6, lipase of 13. He did on the day after admission have an ammonia level of 71 drawn. This finding was not further inves tigated because he has no history of hepatitis or cirrhosis and had no confusion or any history of ch ronic liver disease. Outpatient workup of hyperammonemia would be indicated. DISPOSITION: To home. DIET: It should be as tolerated. ACTIVITY: As tolerated. He should see his primary care doctor within a week. [id number]/[facility] #: [id number]
== END 2017-09-25 15:40 | disposition home or self-care (01) ==
LOC: ED 09:56 → MED 13:45
PROVIDERS: ADMIT Internal Medicine; ATTEND Internal Medicine
DX: R11.2 Nausea with vomiting, unspecified (principal); R10.33 Periumbilical pain; N40.0 Benign prostatic hyperplasia without lower urinary tract symptoms; E78.5 Hyperlipidemia, unspecified; Z85.528 Personal history of other malignant neoplasm of kidney; Z79.899 Other long term (current) drug therapy; Z87.891 Personal history of nicotine dependence; R00.1 Bradycardia, unspecified
CPT/HCPCS: 36415; 74177; 80053; 81003; 82140; 82150; 83605; 83690; 84484; 85025; 86140; 87040; 93005; 96361; 96372; 96374; 96375; 96376; 99283; A9270-GY; G0378; J1644; J2270; J2405; J2765; Q9967

== ENCOUNTER 2018-04-24 14:08 | Observation (INO) | payer BC, MEDICARE ==
[2018-04-24] MEDS ORDERED: Ondansetron ODT TAB* 4 MG PO ONE ×2 (14:48→16:44)
[2018-04-24] MEDS ORDERED: Morphine VIAL* 4 MG/ML VIAL (1 ml vial) IV ONE ×2 (14:48→15:52)
[2018-04-24] MEDS: NS 0.9% 1000 ML* 2,000 ML IV ONE (15:27)
--- NOTE | 2018-04-24 15:34 | RAD ---
INDICATION: Chest and abdominal pain COMPARISON: Chest x-ray March 08, 2017 TECHNIQUE: An AP portable view obtained at 1510 hours is submitted. FINDINGS: Bones/Soft Tissues: There are no acute bony findings. Cardiomediastinal: The cardiomediastinal silhouette is normal. Lungs: There are no infiltrates. Pleura: There are no pleural effusions. Other: None IMPRESSION: NO PLAIN RADIOGRAPHIC ABNORMALITIES OR INTERVAL CHANGES
[2018-04-24 15:45] LABS: ABS Basophils 0 10^3/ul (0-0.2); ABS Eosinophils 0 10^3/ul (0-0.6); ABS Lymphocytes 0.6 10^3/ul (1.0-4.8); ABS Monocytes 0.6 10^3/ul (0-0.8); ABS Neutrophils 14.2 10^3/ul (1.5-7.7); ABS Nucleated RBC 0 10^3/ul; Eosinophil % 0 % (0-6); Hematocrit 41 % (42-52); Hemoglobin 14.6 g/dl (14.0-18.0); Lymphocyte % 3.8 % (25-47); Mean Corpuscular HGB Conc 36 g/dl (31-36); Mean Corpuscular Hemoglobin 33 pg (27-31); Mean Corpuscular Volume 93 fL (80-94); Mean Platelet Volume 7.4 um3 (7.4-10.4); Nucleated Red Blood Cells % 0; Platelet Count 320 10^3/ul (150-450); Red Blood Count 4.39 10^6/ul (4.00-5.40); Red Cell Distribution Width 15 % (10.5-15); White Blood Count 15.5 10^3/ul (3.5-10.8)
[2018-04-24 15:54] LABS: INR 0.98 (0.77-1.02)
[2018-04-24 16:03] LABS: EGFR Non-African American 101.1 (>60)
[2018-04-24] MEDS ORDERED: Iohexol 300* (CONTRAST) 10 ML SDV IV ONE (16:32)
--- NOTE | 2018-04-24 16:44 | RAD ---
INDICATION: Abdominal pain history of renal cell carcinoma COMPARISON: September 24, 2017 TECHNIQUE: Axial source images were obtained from the hemidiaphragms to the symphysis pubis following administration of oral and intravenous contrast. 116 mL Omnipaque 300 was utilized. Coronal and sagittal reconstructed images were acquired. Lung bases: The lung bases are clear. Liver: The liver is normal in size. There are no masses. There is no ductal dilatation. Gallbladder: There are no calcified gallstones. There is no evidence of wall thickening or pericholecystic fluid. Spleen: The spleen is normal in size. There are no masses. Pancreas: There is no focal pancreatic mass or ductal dilatation. Adrenal glands: There is no evidence of adrenal mass. Kidneys: The kidneys are normal in size and position. There are prompt nephrograms and there is prompt excretion bilaterally. There are no renal parenchymal masses. There is no evidence of nephrolithiasis. Adenopathy: There is no evidence of adenopathy by size criteria. Fluid collections: There are no free or localized fluid collections. Vessels:There are no significant atherosclerotic changes involving the aorta. There is no focal aneurysm. The iliac vessels are normal in caliber. The IVC appears normal. GI tract: The upper GI tract is unremarkable. There is mild mucosal edema of the colon raising the possibility of a mild diffuse colitis. The ileocecal valve and appendix are visualized and appear normal. Pelvic organs: The prostate is enlarged Bladder: There are no bladder masses. Abdominal and pelvic soft tissues: The extraperitoneal abdominal and pelvic soft tissues appear normal.. Osseous structures: There are no acute osseous findings. Other: None IMPRESSION: IMAGING FINDINGS SUGGEST POSSIBLE MILD DIFFUSE COLITIS. ENLARGED PROSTATE.
[2018-04-24] MEDS ORDERED: Ciprofloxacin 400MG IVPREMIX(* 400 MG/200 ML BAG IVPB ONE (17:36)
[2018-04-24 17:41] LABS: Urine Appearance Clear; Urine Blood 1+ (Negative); Urine Color Yellow; Urine Ketones Negative (Negative); Urine Protein 2+(100 mg/dL) (Negative); Urine Specific Gravity 1.046 (1.010-1.030); Urine Urobilinogen Negative (Negative)
[2018-04-24] MEDS ORDERED: NS 0.9% 1000 ML* 1,000 ML IV SCH (17:45)
[2018-04-24] MEDS ORDERED: Morphine VIAL* 4 MG/ML VIAL (1 ml vial) IV PRN (18:06)
[2018-04-24] MEDS ORDERED: Ondansetron 40 MG VIAL* 2 MG/ML 20 ML VIAL IV PRN (18:07)
--- NOTE | 2018-04-24 18:20 | ADMNOTE ---
Subjective Date of Service: 04/24/18 Interval History: ADMISSION HISTORY AND PHYSICAL EXAM: Allergies Allergy/AdvReac Type Severity Reaction Status Date / Time No Known Allergies Allergy Verified 04/24/18 14:11 Home Medications Medication Instructions Recorded Confirmed Type Tamsulosin CAP* [Flomax CAP*] 0.4 mg PO DAILY 07/06/17 04/24/18 History HPI: The patient was in his usual state of health when he woke up this AM. Within about 30 minutes he developed N,V, and abdominal pain, also a small amount of diarrhea. His partner is present in the ED and was with his this AM. They both agree that his symptoms are very similar to his previous admissions for cyclic vomiting. He uses marijuana daily, denies any change. He take a turmeric capsule and olive leaves most days. 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 He took his tamsulosin this AM. Family History: Findings - Father age 77 of stroke. Sister had stroke. Mother age 92. Alcoholism in several brothers. Social History: Findings - Quit smoking over 10 yrs ago. Daily marijuana. No alcohol abuse. His SO Evette Louisjacquie is his SDM. Retired from [employer]. Has [employer]. Past Medical History: Findings - Tumor removed from kidney in 2016. EGD 07/18: very mild gastitis, duodenitis. Review of Systems - Measurements Intake and Output: Intake and Output Last 24 Hours 04/22/18 04/23/18 04/24/18 04/25/18 06:59 06:59 06:59 06:59 Weight 192 lb - Review of Systems Constitutional Symptoms: Negative: Weight Gain, Weight Loss, Weakness, Fatigue, Fever, Night Sweats, Unexplained Falls, Other Dermatology: Positive: Normal HEENT: Positive: Normal Eyes: Positive: Normal Thyroid: Positive: Normal Pulmonary: Positive: Normal Cardiology: Positive: Normal Gastroenterology: Positive: Abdominal Pain, Nausea, Vomiting, Diarrhea Genital - Urinary: Positive: Normal Genitourinary - Male: Positive: Prostatism Musculoskeletal: Negative: Joint Pain, Joint Stiffness, Arthritis, Osteoporosis, Low Back Pain , Sciatica, Joint Deformities, Kyphoscoliosis, Other Endocrinology: Positive: Normal Hematologic/Lymphatic: Negative: Anemia, Easy Brusing, Hx Leukemia, Hx Lymphoma, Use of Anticoagulant, Use of Antiplatelet Drugs, Other Neurology: Positive: Normal Psychiatry: Positive: Normal Allergic/Immunologic: Negative: Hx Anaphylaxis, Hx Angioedema, Hx Environmental, Hx Seasonal, Athsma, Hx HIV, Immunocompromise, Swollen Glands LymphNodes, Other Objective Active Medications: Enoxaparin Sodium (Lovenox(*)) 40 mg SUBCUT Q24H [facility] Metronidazole/Sodium Chloride (Flagyl 500 Mg Ivpb*) 100 mls @ 100 mls/hr IVPB ONCE ONE Stop: 04/24/18 18:35 Sodium Chloride (Ns 0.9% 1000 Ml*) 1,000 mls @ 100 mls/hr IV PER RATE [facility] Morphine Sulfate (Morphine Inj (Syringe)*) 3 mg IV Q2H PRN PRN Reason: PAIN Ondansetron HCl (Zofran Inj*) 4 mg IV Q4H PRN PRN Reason: NAUSEA Tamsulosin HCl (Flomax Cap*) 0.4 mg PO DAILY [facility] Vital Signs - 8 hr 04/24/18 04/24/18 04/24/18 14:11 15:20 15:27 Temperature 97.3 F Pulse Rate 54 Respiratory 18 16 Rate Blood Pressure 00/00 170/106 (mmHg) O2 Sat by Pulse 99 Oximetry 04/24/18 04/24/18 04/24/18 16:19 16:49 17:00 Temperature Pulse Rate 58 60 89 Respiratory 16 Rate Blood Pressure 173/94 (mmHg) O2 Sat by Pulse 98 97 96 Oximetry Oxygen Devices in Use Now: None Appearance: Alert, although initially somewhat slurred due to MS. Restless, can 't find comfortable position, sits and lies down. Some abd pain. Eyes: No Scleral Icterus Ears/Nose/Mouth/Throat: Clear Oropharnyx, Mucous Membranes Moist Neck: NL Appearance and Movements; NL JVP, No Thyroid Enlargement, Masses Respiratory: Symmetrical Chest Expansion and Respiratory Effort, Clear to Auscultation, Clear to Percussion Cardiovascular: NL Sounds; No Murmurs; No JVD, RRR, No Edema, - Abdominal: NL Sounds; No Tenderness; No Distention, No Hepatosplenomegaly, - - No tenderness to deep palpation Extremities: No Edema, No Clubbing, Cyanosis, - Skin: No Rash or Ulcers, No Nodules or Sclerosis, - Neurological: Alert and Oriented x 3, NL Sensation Result Diagrams: 04/24/18 15:34 04/24/18 17:10 Assess/Plan/Problems-Billing Assessment: - Patient Problems (1) Cyclic vomiting syndrome Current Visit: Yes Status: Acute Comment: He and his SO agree this episode is just like the 4 episodes he was hospitalized for in 2017. He has tried stopping marijuana in the past but doesnt feel that helped. He was not receptive any further attempts to reduce his marijuana use. I don't think he over-uses his herbal supplements. I will give IV PPI although not at all clear that he should continue on a PPI at home. IV fluids (NSS), MS IV PN, ondansetron IV PRN. Three separate blood samples were sent for K+ level, all hemolyzed. BMP for . (2) BPH (benign prostatic hyperplasia) Current Visit: No Status: Acute Code(s): N40.0 - BENIGN PROSTATIC HYPERPLASIA WITHOUT LOWER URINRY TRACT SYMP SNOMED Code(s): 624222238 Comment: Continue tamsulosin.
--- NOTE | 2018-04-24 18:54 | ED ---
Erlinda Ndiaye Julia, scribed for Imtiaz Solis MD on 04/24/18 at 1435 . Abdominal Pain/Male - HPI Summary HPI Summary: This patient is a 68 year old M presenting to [facility] with a chief complaint of burning abdominal pain today with vomiting and diarrhea. Patient denies urinary symptoms. Pain is 10/10 in severity. Surgical history of tumor removal from left kidney roughly a year ago. Medications include Tamsulosin. - History of Current Complaint Chief Complaint: EDAbdPain Stated Complaint: ABDOMINAL PAIN Time Seen by Provider: 04/24/18 14:31 Hx Obtained From: Patient Onset/Duration: Lasting Hours Timing: Constant Pain Intensity: 10 Pain Scale Used: 0-10 Numeric Location: Diffuse Character: Burning Alleviating Factor(s): Nothing Associated Signs And Symptoms: Positive: Vomiting, Diarrhea. Negative: Urinary Symptoms - Allergies/Home Medications Allergies/Adverse Reactions: Allergies Allergy/AdvReac Type Severity Reaction Status Date / Time No Known Allergies Allergy Verified 04/24/18 14:11 PMH/Surg Hx/FS Hx/Imm Hx Endocrine/Hematology History: Denies: Hx Diabetes Cardiovascular History: Reports: Other Cardiovascular Problems/Disorders - Hyperlipidemia Denies: Hx Hypertension History: Reports: Hx Benign Prostatic Hyperplasia, Other Problems/ Disorders - Kidney CA, Kidney tumor resection Denies: Hx Renal Disease Sensory History: Denies: Hx Contacts or Glasses, Hx Hearing Aid Opthamlomology History: Denies: Hx Contacts or Glasses - Cancer History Cancer Type, Location and Year: Kidney CA - Surgical History Surgery Procedure, Year, and Place: Kidney tumor resection, 2017 Infectious Disease History: No Infectious Disease History: Denies: History Other Infectious Disease, Traveled Outside the [place] in Last 30 Days - Family History Known Family History: Negative: Cardiac Disease, Hypertension - Social History Alcohol Use: None Hx Substance Use: Yes Substance Use Type: Reports: Marijuana Substance Use Comment - Amount & Last Used: "Daily" Hx Tobacco Use: Yes Smoking Status (MU): Former Smoker Review of Systems Positive: Abdominal Pain, Vomiting, Diarrhea Positive: no symptoms reported All Other Systems Reviewed And Are Negative: Yes Physical Exam - Summary Physical Exam Summary: General: well-appearing, pain distress Skin: warm, color reflects adequate perfusion, dry Head: normal Eyes: EOMI, SEVERIANO ENT: normal Neck: supple, nontender Respiratory: CTA, breath sounds present Cardiovascular: RRR Abdomen: distended, firm, diffusely tender to palpation Bowel: hypoactive Musculoskeletal: normal, strength/ROM intact Neurological: sensory/motor intact, A&O x3 Psychological: affect/mood appropriate Triage Information Reviewed: Yes Vital Signs On Initial Exam: Initial Vitals Temp Pulse Resp BP Pulse Ox 97.3 F 54 18 00/ 99 04/24/18 14:11 04/24/18 14:11 04/24/18 14:11 04/24/18 14:11 04/24/18 14:11 Vital Signs Reviewed: Yes Diagnostics - Vital Signs Vital Signs Temp Pulse Resp BP Pulse Ox 04/24/18 14:11 97.3 F 54 18 99 - Laboratory Lab Results: Lab Results 04/24/18 04/24/18 04/24/18 Range/Units 15:34 15:34 15:34 WBC 15.5 H (3.5-10.8) 10^3/ul RBC 4.39 (4.00-5.40) 10^6/ul Hgb 14.6 (14.0-18.0) g/dl Hct 41 L (42-52) % MCV 93 (80-94) fL MCH 33 H (27-31) pg MCHC 36 (31-36) g/dl RDW 15 (10.5-15) % Plt Count 320 (150-450) 10^3/ul MPV 7.4 (7.4-10.4) um3 Neut % (Auto) 92.1 H (38-83) % Lymph % (Auto) 3.8 L (25-47) % Eagle % (Auto) 3.9 (0-7) % Eos % (Auto) 0 (0-6) % Baso % (Auto) 0.2 (0-2) % Absolute Neuts (auto) 14.2 H (1.5-7.7) 10^3/ul Absolute Lymphs (auto) 0.6 L (1.0-4.8) 10^3/ul Absolute Monos (auto) 0.6 (0-0.8) 10^3/ul Absolute Eos (auto) 0 (0-0.6) 10^3/ul Absolute Basos (auto) 0 (0-0.2) 10^3/ul Absolute Nucleated RBC 0 10^3/ul Nucleated RBC % 0 INR (Anticoag Therapy) 0.98 (0.77-1.02) APTT 28.2 (26.0-36.3) seconds Sodium 134 L (135-145) mmol/L Potassium TNP Chloride 103 (101-111) mmol/L Carbon Dioxide 22 (22-32) mmol/L Anion Gap 9 (2-11) mmol/L BUN 11 (6-24) mg/dL Creatinine 0.77 (0.67-1.17) mg/dL Est GFR ( Amer) 122.3 (>60) Est GFR (Non-Af Amer) 101.1 (>60) BUN/Creatinine Ratio 14.3 (8-20) Glucose 129 H (70-100) mg/dL Lactic Acid (0.5-2.0) mmol/L Calcium 9.6 (8.6-10.3) mg/dL Total Bilirubin 0.50 (0.2-1.0) mg/dL AST TNP ALT 20 (7-52) U/L Alkaline Phosphatase 66 (34-104) U/L Total Creatine Kinase 168 (10-223) U/L CK-MB (CK-2) 2.0 (0.6-6.3) ng/mL Troponin I 0.00 (<0.04) ng/mL C-Reactive Protein 1.38 (<8.01) mg/L B-Natriuretic Peptide ( - 100) pg/mL Total Protein 8.7 (6.4-8.9) g/dL Albumin 4.8 (3.2-5.2) g/dL Globulin 3.9 (2-4) g/dL Albumin/Globulin Ratio 1.2 (1-3) Lipase 12 (11.0-82.0) U/L TSH 0.87 (0.34-5.60) mcIU/mL Urine Color Urine Appearance Urine pH (5-9) Ur Specific [place] (1.010-1.030) Urine Protein (Negative) Urine Ketones (Negative) Urine Blood (Negative) Urine Nitrate (Negative) Urine Bilirubin (Negative) Urine Urobilinogen (Negative) Ur Leukocyte Esterase (Negative) Urine WBC (Auto) (Absent) Urine RBC (Auto) (Absent) Urine Bacteria (Absent) Urine Glucose (Negative) 06/24/18 06/24/18 06/24/18 Range/Units 15:34 15:34 17:09 WBC (3.5-10.8) 10^3/ul RBC (4.00-5.40) 10^6/ul Hgb (14.0-18.0) g/dl Hct (42-52) % MCV (80-94) fL MCH (27-31) pg MCHC (31-36) g/dl RDW (10.5-15) % Plt Count (150-450) 10^3/ul MPV (7.4-10.4) um3 Neut % (Auto) (38-83) % Lymph % (Auto) (25-47) % Eagle % (Auto) (0-7) % Eos % (Auto) (0-6) % Baso % (Auto) (0-2) % Absolute Neuts (auto) (1.5-7.7) 10^3/ul Absolute Lymphs (auto) (1.0-4.8) 10^3/ul Absolute Monos (auto) (0-0.8) 10^3/ul Absolute Eos (auto) (0-0.6) 10^3/ul Absolute Basos (auto) (0-0.2) 10^3/ul Absolute Nucleated RBC 10^3/ul Nucleated RBC % INR (Anticoag Therapy) (0.77-1.02) APTT (26.0-36.3) seconds Sodium (135-145) mmol/L Potassium Chloride (101-111) mmol/L Carbon Dioxide (22-32) mmol/L Anion Gap (2-11) mmol/L BUN (6-24) mg/dL Creatinine (0.67-1.17) mg/dL Est GFR ( Amer) (>60) Est GFR (Non-Af Amer) (>60) BUN/Creatinine Ratio (8-20) Glucose (70-100) mg/dL Lactic Acid 2.5 H* (0.5-2.0) mmol/L Calcium (8.6-10.3) mg/dL Total Bilirubin (0.2-1.0) mg/dL AST ALT (7-52) U/L Alkaline Phosphatase (34-104) U/L Total Creatine Kinase (10-223) U/L CK-MB (CK-2) (0.6-6.3) ng/mL Troponin I (<0.04) ng/mL C-Reactive Protein (<8.01) mg/L B-Natriuretic Peptide 75 ( - 100) pg/mL Total Protein (6.4-8.9) g/dL Albumin (3.2-5.2) g/dL Globulin (2-4) g/dL Albumin/Globulin Ratio (1-3) Lipase (11.0-82.0) U/L TSH (0.34-5.60) mcIU/mL Urine Color Yellow Urine Appearance Clear Urine pH 7.0 (5-9) Ur Specific [place] 1.046 H (1.010-1.030) Urine Protein 2+(100 mg/dl) A (Negative) Urine Ketones Negative (Negative) Urine Blood 1+ A (Negative) Urine Nitrate Negative (Negative) Urine Bilirubin Negative (Negative) Urine Urobilinogen Negative (Negative) Ur Leukocyte Esterase Negative (Negative) Urine WBC (Auto) Absent (Absent) Urine RBC (Auto) 1+(3-5/hpf) A (Absent) Urine Bacteria Absent (Absent) Urine Glucose Negative (Negative) 04/24/18 04/24/18 Range/Units 17:10 18:10 WBC (3.5-10.8) 10^3/ul RBC (4.00-5.40) 10^6/ul Hgb (14.0-18.0) g/dl Hct (42-52) % MCV (80-94) fL MCH (27-31) pg MCHC (31-36) g/dl RDW (10.5-15) % Plt Count (150-450) 10^3/ul MPV (7.4-10.4) um3 Neut % (Auto) (38-83) % Lymph % (Auto) (25-47) % Eagle % (Auto) (0-7) % Eos % (Auto) (0-6) % Baso % (Auto) (0-2) % Absolute Neuts (auto) (1.5-7.7) 10^3/ul Absolute Lymphs (auto) (1.0-4.8) 10^3/ul Absolute Monos (auto) (0-0.8) 10^3/ul Absolute Eos (auto) (0-0.6) 10^3/ul Absolute Basos (auto) (0-0.2) 10^3/ul Absolute Nucleated RBC 10^3/ul Nucleated RBC % INR (Anticoag Therapy) (0.77-1.02) APTT (26.0-36.3) seconds Sodium (135-145) mmol/L Potassium TNP TNP Chloride (101-111) mmol/L Carbon Dioxide (22-32) mmol/L Anion Gap (2-11) mmol/L BUN (6-24) mg/dL Creatinine (0.67-1.17) mg/dL Est GFR ( Amer) (>60) Est GFR (Non-Af Amer) (>60) BUN/Creatinine Ratio (8-20) Glucose (70-100) mg/dL Lactic Acid (0.5-2.0) mmol/L Calcium (8.6-10.3) mg/dL Total Bilirubin (0.2-1.0) mg/dL AST TNP TNP ALT (7-52) U/L Alkaline Phosphatase (34-104) U/L Total Creatine Kinase (10-223) U/L CK-MB (CK-2) (0.6-6.3) ng/mL Troponin I (<0.04) ng/mL C-Reactive Protein (<8.01) mg/L B-Natriuretic Peptide ( - 100) pg/mL Total Protein (6.4-8.9) g/dL Albumin (3.2-5.2) g/dL Globulin (2-4) g/dL Albumin/Globulin Ratio (1-3) Lipase (11.0-82.0) U/L TSH (0.34-5.60) mcIU/mL Urine Color Urine Appearance Urine pH (5-9) Ur Specific [place] (1.010-1.030) Urine Protein (Negative) Urine Ketones (Negative) Urine Blood (Negative) Urine Nitrate (Negative) Urine Bilirubin (Negative) Urine Urobilinogen (Negative) Ur Leukocyte Esterase (Negative) Urine WBC (Auto) (Absent) Urine RBC (Auto) (Absent) Urine Bacteria (Absent) Urine Glucose (Negative) Result Diagrams: 04/24/18 15:34 04/24/18 18:10 Lab Statement: Any lab studies that have been ordered have been reviewed, and results considered in the medical decision making process. - Radiology CXR Radiology Interpretation Completed By: Radiologist - NO PLAIN RADIOGRAPHIC ABNORMALITIES OR INTERVAL CHANGES ED Physician has reviewed this report. - CT A/P CT Interpretation Completed By: Radiologist - IMAGING FINDINGS SUGGEST POSSIBLE MILD DIFFUSE COLITIS. ENLARGED PROSTATE. ED Physician has reviewed this report. - EKG 1538 Cardiac Rate: NL - 57 BPM EKG Rhythm: Sinus Rhythm Ectopy: None EKG Interpretation: ST elevation in v1 and v2 similar to prior, no reciprocal changes Abdominal Pain Fem Course/Dx - Course Course Of Treatment: ADMIT HOSPITALIST. - Diagnoses Provider Diagnoses: Colitis - Provider Notifications Discussed Care Of Patient With: Nando Holliday - hospitalist Time Discussed With Above Provider: 17:35 Instructed by Provider To: Admit As Inpatient Discharge - Sign-Out/Discharge Documenting (check all that apply): Discharge/Admit/Transfer - admit - Discharge Plan Condition: Stable Disposition: ADMITTED TO [facility] - Billing Disposition and Condition Condition: STABLE Disposition: Admitted to [facility] The documentation as recorded by the Erlinda wray Julia accurately reflects the service I personally performed and the decisions made by me, Imtiaz Solis MD.
[2018-04-24] MEDS ORDERED: metroNIDAZOLE IV 500 MG/100ML* 500 MG/100 ML BAG IVPB ONE (20:00)
[2018-04-24] MEDS: Pantoprazole IV* 40 MG IV SCH (20:29)
[2018-04-24] MEDS: Enoxaparin(*) 40 MG/0.4 ML SYR SUBCUT SCH (20:29)
[2018-04-24] MEDS: NS 0.9% 1000 ML* 1,000 ML IV SCH (20:31)
[2018-04-25 07:06] LABS: ABS Basophils 0.1 10^3/ul (0-0.2); ABS Eosinophils 0 10^3/ul (0-0.6); ABS Lymphocytes 1.6 10^3/ul (1.0-4.8); ABS Monocytes 1.4 10^3/ul (0-0.8); ABS Neutrophils 10.9 10^3/ul (1.5-7.7); ABS Nucleated RBC 0 10^3/ul; Eosinophil % 0 % (0-6); Hematocrit 37 % (42-52); Hemoglobin 13.2 g/dl (14.0-18.0); Lymphocyte % 11.6 % (25-47); Mean Corpuscular HGB Conc 36 g/dl (31-36); Mean Corpuscular Hemoglobin 33 pg (27-31); Mean Corpuscular Volume 92 fL (80-94); Mean Platelet Volume 7.2 um3 (7.4-10.4); Nucleated Red Blood Cells % 0; Platelet Count 280 10^3/ul (150-450); Red Blood Count 4.03 10^6/ul (4.00-5.40); Red Cell Distribution Width 15 % (10.5-15)
[2018-04-25 07:27] LABS: EGFR Non-African American 98.1 (>60)
[2018-04-25] MEDS: Pantoprazole IV* 40 MG IV SCH ×2 (08:10→20:00)
[2018-04-25] MEDS: Tamsulosin CAP* 0.4 MG PO SCH (08:10)
[2018-04-25] MEDS ORDERED: Calcium CHLORIDE 10% SYRINGE* 0.68 GM in D5W 100 ML BAG* 100 ML IV ONE (11:00)
[2018-04-25] MEDS: NS 0.9% 1000 ML* 1,000 ML IV SCH ×2 (11:40→20:00)
--- NOTE | 2018-04-25 15:50 | PN ---
Subjective Date of Service: 04/25/18 Interval History: Pt seen and examined. Meds and labs reviewed. ROS: Mentioned last episode of nausea was late last night. Denied STEWART/dizziness , F/C, N/V, CP, SOB, increased cough, sputum production, abd pain, diarrhea, constipation, dysuria, myalgias, arthralgias, throat pain, and new skin lesions. The rest of the 14 point ROS are unremarkable. PHYSICAL EXAM: GEN APPEARANCE: Awake, not in acute distress HEENT: NC/AT, PERRLA, moist oral mucosa, (-) throat erythema NECK: Soft, supple, (-) cervical LAD, (-)JVD HEART: S1S2 WNL, RRR, No MRG CHEST: CTA, BL, GAE, No W/R/R ABD: Soft, ND/NT, NABS 4x Q EXT: No C/C/E SKIN: Warm to touch PSYCH: No active psychosis, hallucinations, depression, SI/HI Family History: Findings - Father age 77 of stroke. Sister had stroke. Mother age 92. Alcoholism in several brothers. Social History: Findings - Quit smoking over 10 yrs ago. Daily marijuana. No alcohol abuse. His SO Evette Choudhury is his SDM. Retired from [employer]. Has [employer]. Past Medical History: Findings - Tumor removed from kidney in 2016. EGD 07/18: very mild gastitis, duodenitis. Objective Active Medications: Enoxaparin Sodium (Lovenox(*)) 40 mg SUBCUT Q24H [facility] Last Admin: 04/24/18 20:29 Dose: 40 mg Sodium Chloride (Ns 0.9% 1000 Ml*) 1,000 mls @ 100 mls/hr IV PER RATE [facility] Last Admin: 04/25/18 11:40 Dose: 100 mls/hr Morphine Sulfate (Morphine Vial*) 3 mg IV Q2H PRN PRN Reason: PAIN Ondansetron HCl (Zofran 40 Mg Vial*) 4 mg IV Q4H PRN PRN Reason: NAUSEA Pantoprazole Sodium (Protonix Iv*) 40 mg IV Q12H [facility] Last Admin: 04/25/18 08:10 Dose: 40 mg Tamsulosin HCl (Flomax Cap*) 0.4 mg PO DAILY [facility] Last Admin: 04/25/18 08:10 Dose: 0.4 mg Vital Signs - 8 hr 04/25/18 04/25/18 08:00 11:22 Temperature 98.3 F Pulse Rate 53 Respiratory 12 18 Rate Blood Pressure 119/59 (mmHg) O2 Sat by Pulse 95 Oximetry Oxygen Devices in Use Now: None Result Diagrams: 04/25/18 06:36 04/25/18 06:36 Additional Lab and Data: Lab Results 04/24/18 04/24/18 04/24/18 Range/Units 15:34 15:34 15:34 WBC 15.5 H (3.5-10.8) 10^3/ul RBC 4.39 (4.00-5.40) 10^6/ul Hgb 14.6 (14.0-18.0) g/dl Hct 41 L (42-52) % MCV 93 (80-94) fL MCH 33 H (27-31) pg MCHC 36 (31-36) g/dl RDW 15 (10.5-15) % Plt Count 320 (150-450) 10^3/ul MPV 7.4 (7.4-10.4) um3 Neut % (Auto) 92.1 H (38-83) % Lymph % (Auto) 3.8 L (25-47) % Wilkinson % (Auto) 3.9 (0-7) % Eos % (Auto) 0 (0-6) % Baso % (Auto) 0.2 (0-2) % Absolute Neuts (auto) 14.2 H (1.5-7.7) 10^3/ul Absolute Lymphs (auto) 0.6 L (1.0-4.8) 10^3/ul Absolute Monos (auto) 0.6 (0-0.8) 10^3/ul Absolute Eos (auto) 0 (0-0.6) 10^3/ul Absolute Basos (auto) 0 (0-0.2) 10^3/ul Absolute Nucleated RBC 0 10^3/ul Nucleated RBC % 0 INR (Anticoag Therapy) 0.98 (0.77-1.02) APTT 28.2 (26.0-36.3) seconds Sodium 134 L (135-145) mmol/L Potassium TNP Chloride 103 (101-111) mmol/L Carbon Dioxide 22 (22-32) mmol/L Anion Gap 9 (2-11) mmol/L BUN 11 (6-24) mg/dL Creatinine 0.77 (0.67-1.17) mg/dL Est GFR ( Amer) 122.3 (>60) Est GFR (Non-Af Amer) 101.1 (>60) BUN/Creatinine Ratio 14.3 (8-20) Glucose 129 H (70-100) mg/dL Lactic Acid (0.5-2.0) mmol/L Calcium 9.6 (8.6-10.3) mg/dL Total Bilirubin 0.50 (0.2-1.0) mg/dL AST TNP ALT 20 (7-52) U/L Alkaline Phosphatase 66 (34-104) U/L Total Creatine Kinase 168 (10-223) U/L CK-MB (CK-2) 2.0 (0.6-6.3) ng/mL Troponin I 0.00 (<0.04) ng/mL C-Reactive Protein 1.38 (<8.01) mg/L B-Natriuretic Peptide ( - 100) pg/mL Total Protein 8.7 (6.4-8.9) g/dL Albumin 4.8 (3.2-5.2) g/dL Globulin 3.9 (2-4) g/dL Albumin/Globulin Ratio 1.2 (1-3) Lipase 12 (11.0-82.0) U/L TSH 0.87 (0.34-5.60) mcIU/mL Urine Color Urine Appearance Urine pH (5-9) Ur Specific [place] (1.010-1.030) Urine Protein (Negative) Urine Ketones (Negative) Urine Blood (Negative) Urine Nitrate (Negative) Urine Bilirubin (Negative) Urine Urobilinogen (Negative) Ur Leukocyte Esterase (Negative) Urine WBC (Auto) (Absent) Urine RBC (Auto) (Absent) Urine Bacteria (Absent) Urine Glucose (Negative) 04/24/18 04/24/18 04/24/18 Range/Units 15:34 15:34 17:09 WBC (3.5-10.8) 10^3/ul RBC (4.00-5.40) 10^6/ul Hgb (14.0-18.0) g/dl Hct (42-52) % MCV (80-94) fL MCH (27-31) pg MCHC (31-36) g/dl RDW (10.5-15) % Plt Count (150-450) 10^3/ul MPV (7.4-10.4) um3 Neut % (Auto) (38-83) % Lymph % (Auto) (25-47) % Wilkinson % (Auto) (0-7) % Eos % (Auto) (0-6) % Baso % (Auto) (0-2) % Absolute Neuts (auto) (1.5-7.7) 10^3/ul Absolute Lymphs (auto) (1.0-4.8) 10^3/ul Absolute Monos (auto) (0-0.8) 10^3/ul Absolute Eos (auto) (0-0.6) 10^3/ul Absolute Basos (auto) (0-0.2) 10^3/ul Absolute Nucleated RBC 10^3/ul Nucleated RBC % INR (Anticoag Therapy) (0.77-1.02) APTT (26.0-36.3) seconds Sodium (135-145) mmol/L Potassium Chloride (101-111) mmol/L Carbon Dioxide (22-32) mmol/L Anion Gap (2-11) mmol/L BUN (6-24) mg/dL Creatinine (0.67-1.17) mg/dL Est GFR ( Amer) (>60) Est GFR (Non-Af Amer) (>60) BUN/Creatinine Ratio (8-20) Glucose (70-100) mg/dL Lactic Acid 2.5 H* (0.5-2.0) mmol/L Calcium (8.6-10.3) mg/dL Total Bilirubin (0.2-1.0) mg/dL AST ALT (7-52) U/L Alkaline Phosphatase (34-104) U/L Total Creatine Kinase (10-223) U/L CK-MB (CK-2) (0.6-6.3) ng/mL Troponin I (<0.04) ng/mL C-Reactive Protein (<8.01) mg/L B-Natriuretic Peptide 75 ( - 100) pg/mL Total Protein (6.4-8.9) g/dL Albumin (3.2-5.2) g/dL Globulin (2-4) g/dL Albumin/Globulin Ratio (1-3) Lipase (11.0-82.0) U/L TSH (0.34-5.60) mcIU/mL Urine Color Yellow Urine Appearance Clear Urine pH 7.0 (5-9) Ur Specific [place] 1.046 H (1.010-1.030) Urine Protein 2+(100 mg/dl) A (Negative) Urine Ketones Negative (Negative) Urine Blood 1+ A (Negative) Urine Nitrate Negative (Negative) Urine Bilirubin Negative (Negative) Urine Urobilinogen Negative (Negative) Ur Leukocyte Esterase Negative (Negative) Urine WBC (Auto) Absent (Absent) Urine RBC (Auto) 1+(3-5/hpf) A (Absent) Urine Bacteria Absent (Absent) Urine Glucose Negative (Negative) 04/24/18 04/24/18 Range/Units 17:10 18:10 WBC (3.5-10.8) 10^3/ul RBC (4.00-5.40) 10^6/ul Hgb (14.0-18.0) g/dl Hct (42-52) % MCV (80-94) fL MCH (27-31) pg MCHC (31-36) g/dl RDW (10.5-15) % Plt Count (150-450) 10^3/ul MPV (7.4-10.4) um3 Neut % (Auto) (38-83) % Lymph % (Auto) (25-47) % Wilkinson % (Auto) (0-7) % Eos % (Auto) (0-6) % Baso % (Auto) (0-2) % Absolute Neuts (auto) (1.5-7.7) 10^3/ul Absolute Lymphs (auto) (1.0-4.8) 10^3/ul Absolute Monos (auto) (0-0.8) 10^3/ul Absolute Eos (auto) (0-0.6) 10^3/ul Absolute Basos (auto) (0-0.2) 10^3/ul Absolute Nucleated RBC 10^3/ul Nucleated RBC % INR (Anticoag Therapy) (0.77-1.02) APTT (26.0-36.3) seconds Sodium (135-145) mmol/L Potassium TNP TNP Chloride (101-111) mmol/L Carbon Dioxide (22-32) mmol/L Anion Gap (2-11) mmol/L BUN (6-24) mg/dL Creatinine (0.67-1.17) mg/dL Est GFR ( Amer) (>60) Est GFR (Non-Af Amer) (>60) BUN/Creatinine Ratio (8-20) Glucose (70-100) mg/dL Lactic Acid (0.5-2.0) mmol/L Calcium (8.6-10.3) mg/dL Total Bilirubin (0.2-1.0) mg/dL AST TNP TNP ALT (7-52) U/L Alkaline Phosphatase (34-104) U/L Total Creatine Kinase (10-223) U/L CK-MB (CK-2) (0.6-6.3) ng/mL Troponin I (<0.04) ng/mL C-Reactive Protein (<8.01) mg/L B-Natriuretic Peptide ( - 100) pg/mL Total Protein (6.4-8.9) g/dL Albumin (3.2-5.2) g/dL Globulin (2-4) g/dL Albumin/Globulin Ratio (1-3) Lipase (11.0-82.0) U/L TSH (0.34-5.60) mcIU/mL Urine Color Urine Appearance Urine pH (5-9) Ur Specific [place] (1.010-1.030) Urine Protein (Negative) Urine Ketones (Negative) Urine Blood (Negative) Urine Nitrate (Negative) Urine Bilirubin (Negative) Urine Urobilinogen (Negative) Ur Leukocyte Esterase (Negative) Urine WBC (Auto) (Absent) Urine RBC (Auto) (Absent) Urine Bacteria (Absent) Urine Glucose (Negative) Assess/Plan/Problems-Billing - Patient Problems (1) Hypocalcemia Current Visit: Yes Status: Acute Code(s): E83.51 - HYPOCALCEMIA SNOMED Code(s): 3233909 Comment: -Corrected with 2g IV of Calcium chloride -Possibly due to vomiting? -Check Vitamin D levels -Will continue to follow levels including other electrolytes (2) Cyclic vomiting syndrome Current Visit: Yes Status: Acute Comment: -He and his SO agree this episode is just like the 4 episodes he was hospitalized for in 2017. He has tried stopping marijuana in the past but doesnt feel that helped. He was not receptive any further attempts to reduce his marijuana use. I don't think he over-uses his herbal supplements. I will give IV PPI although not at all clear that he should continue on a PPI at home. IV fluids (NSS), MS IV PN, ondansetron IV PRN. Three separate blood samples were sent for K+ level, all hemolyzed. BMP for . (3) BPH (benign prostatic hyperplasia) Current Visit: No Status: Acute Code(s): N40.0 - BENIGN PROSTATIC HYPERPLASIA WITHOUT LOWER URINRY TRACT SYMP SNOMED Code(s): 367934992 Comment: -Continue tamsulosin. Status and Disposition: -For PT eval -Possible D/C in AM if no other issues
[2018-04-25] MEDS: Enoxaparin(*) 40 MG/0.4 ML SYR SUBCUT SCH (20:00)
[2018-04-26] MEDS: NS 0.9% 1000 ML* 1,000 ML IV SCH (05:46)
[2018-04-26] MEDS: Pantoprazole IV* 40 MG IV SCH (05:47)
[2018-04-26 07:31] LABS: Hematocrit 37 % (42-52); Hemoglobin 13.5 g/dl (14.0-18.0); Mean Corpuscular HGB Conc 37 g/dl (31-36); Mean Corpuscular Hemoglobin 34 pg (27-31); Mean Corpuscular Volume 92 fL (80-94); Mean Platelet Volume 7.1 um3 (7.4-10.4); Platelet Count 250 10^3/ul (150-450); Red Blood Count 3.99 10^6/ul (4.00-5.40); Red Cell Distribution Width 15 % (10.5-15)
[2018-04-26 07:49] LABS: EGFR Non-African American 86.6 (>60)
[2018-04-26] MEDS: Tamsulosin CAP* 0.4 MG PO SCH (08:10)
[2018-04-26 08:58] VITALS: BP 140/78
[2018-04-26] MEDS ORDERED: Magnesium Sulfate 2 GM IV* 2 GM/50 ML BAG IVPB ONE (09:15)
[2018-04-26] MEDS ORDERED: Sodium Phosphate INJ* 15 MMOLE in NS 0.9% 250 ML* 250 ML IVPB ONE (09:16)
[2018-04-26] MEDS ORDERED: Potassium & Sodium Phos 250MG* = 1 PACKET PO ONE (13:00)
--- NOTE | 2018-04-27 10:49 | DS ---
CC: Dr. Holliday; Ms. Imtiaz Solis; Dr. King DISCHARGE SUMMARY: DATE OF ADMISSION: 04/24/18 DATE OF DISCHARGE: 04/26/18 DISCHARGE DIAGNOSES: As follows: 1. Cyclic vomiting syndrome. 2. Hypocalcemia hypomagnesemia, hypophosphatemia likely secondary to cyclic vomiting syndrome. 3. History of benign prostatic hypertrophy. HISTORY OF PRESENT ILLNESS/HOSPITAL COURSE: The patient is a 68-year-old gentleman with history of gastritis and duodenitis as well as cyclic vomiting syndrome who was in his usual health until he woke up on the morning of 04/24/18 and developed some nausea, vomiting, and abdominal pain and possible small amount of diarrhea. He mentions that his symptoms are very similar to his previous admissions for cyclic vomiting syndrome. He mentions that he uses marijuana daily and denied any change, although he does use some turmeric capsule and olive leaves most days. He was admitted for observation and was given p.r.n. antinausea medications, which resolved his nausea and vomiting. He was subsequently found to be hypokalemic, hypomagnesemic and phosphatemic and was observed overnight to further monitor stability. Prior to his discharge, his magnesium and phosphate levels were replenished and he had been advised to repeat the laboratory within 3 days and have his primary care physician review the appropriate data to see whether he would need further supplementations. He had been advised to follow up/call his PCP within 3 days post discharge and to call my office if he has any further questions or clarifications regarding his prescriptions or any of my instructions upon discharge. He has also been advised to call [facility] if he feels that he needs to be reevaluated sooner than his scheduled appointment with his PCP. He was also reminded to repeat his electrolyte level draws as discussed above with his PCP and/or [facility]. He had been given a script to have this done as an outpatient. He was also advised to take his medications as prescribed. PHYSICAL EXAMINATION: Reveals the most recent vital signs of records with blood pressure of 140/78, 98.3 degrees Fahrenheit, 51 beats per minute heart rate, 18 per minute respiratory rate, saturating at 97% on room air. General Appearance: The patient is awake, alert, and oriented x3, not in acute distress. HEENT: Normocephalic, atraumatic. PERRLA. Extraocular muscles intact. Negative for icterus. Moist oral mucosa. Negative throat erythema. Neck is soft and supple with no cervical lymphadenopathy. No JVD. Heart: S1 and S2 within normal limits. Regular rate and rhythm. No murmurs, rubs, and gallops. Chest: Clear to auscultation bilaterally. Good air entry. No wheezes, rales, or rhonchi. Abdomen is soft, nondistended, and nontender. Normoactive bowel sounds 4xQ. Extremities: No cyanosis, clubbing, or edema. Psychiatric: No active psychosis, depression, suicidal or homicidal ideations. Skin is warm to touch. DISCHARGE MEDICATIONS: Are as follows: 1. Zofran 8 mg p.o. q.6 p.r.n. 2. Tamsulosin 0.4 mg p.o. daily. DISCHARGE INSTRUCTIONS: He had been advised and was given prescription for the following laboratory draws; ionized calcium, magnesium and phosphorus with the caveat that he will need to discuss the results with his PCP preferably, and if he encounters delay, to call [facility]. [id number]/[facility] #: [id number] YURI
== END 2018-04-26 12:44 | disposition home or self-care (01) ==
LOC: ED 14:08 → MEDTELE 18:49 → MED 19:30
PROVIDERS: ADMIT Internal Medicine; ATTEND Student in an Organized Health Care Education/Training Program
DX: G43.A0 Cyclical vomiting, in migraine, not intractable (principal); E83.51 Hypocalcemia; N40.0 Benign prostatic hyperplasia without lower urinary tract symptoms; Z87.891 Personal history of nicotine dependence; R19.7 Diarrhea, unspecified
CPT/HCPCS: 36415; 71045; 74177; 80048; 80053; 81003; 81015; 82306; 82330; 82550; 82553; 83605; 83690; 83735; 83880; 84100; 84443; 84484; 85025; 85027; 85610; 85730; 86140; 93005; 96365; 96375; 99283; A9270-GY; G0378; J0744; J1650; J2270; J3475; J3490; Q9967

== ENCOUNTER 2018-07-28 06:01 | Emergency (ER) | payer MEDICARE ==
[2018-07-28] MEDS ORDERED: Ondansetron INJ* 2 MG/ML VIAL IV ONE (06:44)
[2018-07-28] MEDS ORDERED: Famotidine IV* 10 MG/ML 2 ML (20 mg) IV ONE (06:44)
[2018-07-28] MEDS ORDERED: NS 0.9% 1000 ML* 1,000 ML IV ONE (06:44)
[2018-07-28 07:18] LABS: ABS Basophils 0.1 10^3/ul (0-0.2); ABS Eosinophils 0.1 10^3/ul (0-0.6); ABS Lymphocytes 2.2 10^3/ul (1.0-4.8); ABS Neutrophils 8.9 10^3/ul (1.5-7.7); ABS Nucleated RBC 0 10^3/ul; Eosinophil % 0.5 % (0-6); Hematocrit 42 % (42-52); Hemoglobin 14.8 g/dl (14.0-18.0); Lymphocyte % 17.8 % (25-47); Mean Corpuscular HGB Conc 35 g/dl (31-36); Mean Corpuscular Hemoglobin 33 pg (27-31); Mean Corpuscular Volume 93 fL (80-94); Mean Platelet Volume 7.3 um3 (7.4-10.4); Nucleated Red Blood Cells % 0.2; Platelet Count 370 10^3/ul (150-450); Red Blood Count 4.54 10^6/ul (4.00-5.40); Red Cell Distribution Width 14 % (10.5-15); White Blood Count 12.3 10^3/ul (3.5-10.8)
--- NOTE | 2018-07-28 07:22 | ED ---
Abdominal Pain/Male - HPI Summary HPI Summary: Patient presents with return of nausea with vomiting. He reports symptoms started on Wednesday and have been persistent since. His initial onset entails flushing alternating with chills. This lasts for a few hours and is followed by nausea with vomiting. He describes he says his abdominal symptoms as "heat throughout abdomen". And nausea seems to be worse with position change. Currently he denies fever, chills, headache, chest pain, annie abdominal pain, diarrhea. His last bowel movement was this morning which was normal for him. No hematochezia, melena, hematemesis. He has been trying to treat this at home by drinking water however it he just vomits this back up. His partner is also try to get him to take antacid medication as that's normally what he receives when he's here. He has been seen here multiple times for this issue and has been diagnosed with cyclical vomiting syndrome. He reports he's cut back on his marijuana smoking however still continues to do this couple times a week. He denies alcohol use but does admit to drinking about 2 cups of coffee a day. He's been drinking lots of this since his symptoms started. He has not had much to eat since this started. He has tried taking anti-medic medications at home however he cannot keep them down (these are swallowed tabs not dissolvable medication). His only other medical conditions are gastritis and BPH, the latter which is well controlled and he denies any urinary symptoms at this time. H/o kidney ca w/ tumor removal - no reported issues since. Follows with Dr. Salazar per pt. Just started seeing PCP recently - Dr. Barragan. NOTE: pt was admitted to hospital in 04/2018 for same sx. A CT AB/PELVIS was performed then and revealed colitis - no AAA nor findings of cancer. - History of Current Complaint Chief Complaint: EDAbdPain Stated Complaint: ABD PAIN Time Seen by Provider: 07/28/18 06:32 Hx Obtained From: Patient, Family/Manager Welding - female partner Pain Intensity: 10 - Allergies/Home Medications Allergies/Adverse Reactions: Allergies Allergy/AdvReac Type Severity Reaction Status Date / Time No Known Allergies Allergy Verified 04/24/18 14:11 Home Medications: Home Medications Ondansetron HCl [Zofran] 8 mg PO Q6H PRN 07/28/18 [History Confirmed 07/28/18] PMH/Surg Hx/FS Hx/Imm Hx Previously Healthy: Yes Endocrine/Hematology History: Denies: Hx Anticoagulant Therapy, Hx Blood Disorders, Hx Diabetes, Hx Thyroid Disease, Hx Anemia, Hx Unexplained Bleeding Cardiovascular History: Reports: Other Cardiovascular Problems/Disorders - Hyperlipidemia Denies: Hx Aneurysm, Hx Hypertension GI History: Reports: Other GI Disorders - h/o gastritis, cyclical vomiting syndrome History: Reports: Hx Benign Prostatic Hyperplasia, Other Problems/ Disorders - Kidney CA, Kidney tumor resection Denies: Hx Renal Disease Musculoskeletal History: Denies: Hx Arthritis, Hx Osteoporosis Sensory History: Denies: Hx Contacts or Glasses, Hx Hearing Aid Opthamlomology History: Denies: Hx Contacts or Glasses - Cancer History Cancer Type, Location and Year: Kidney CA - Surgical History Surgery Procedure, Year, and Place: Kidney tumor resection, 2017 Infectious Disease History: No Infectious Disease History: Denies: History Other Infectious Disease, Traveled Outside the [place] in Last 30 Days - Family History Known Family History: Positive: None Negative: Cardiac Disease, Hypertension - Social History Occupation: Employed Full-time Lives: With Family Alcohol Use: None Hx Substance Use: Yes Substance Use Type: Reports: Marijuana Substance Use Comment - Amount & Last Used: "Daily" Hx Tobacco Use: Yes - not currently Smoking Status (MU): Former Smoker Review of Systems Constitutional: Negative ENT: Negative Cardiovascular: Negative Respiratory: Negative Gastrointestinal: Other - ab discomfort Positive: Vomiting, Nausea. Negative: Diarrhea Genitourinary: Negative Musculoskeletal: Negative Skin: Negative Neurological: Negative Psychological: Normal All Other Systems Reviewed And Are Negative: Yes Physical Exam Triage Information Reviewed: Yes Vital Signs On Initial Exam: Initial Vitals Temp Pulse Resp BP Pulse Ox 97.1 F 60 16 143/102 99 07/28/18 06:03 07/28/18 06:03 07/28/18 06:03 07/28/18 06:03 07/28/18 06:03 Vital Signs Reviewed: Yes Appearance: Positive: Well-Nourished, Pain Distress - can't get comfortable, restless Skin: Positive: Warm, Skin Color Reflects Adequate Perfusion, Dry Head/Face: Positive: Normal Head/Face Inspection Eyes: Positive: Normal, EOMI, Conjunctiva Clear - anicteric sclera ENT: Positive: Hearing grossly normal, Pharynx normal - mucosa moist Neck: Positive: Supple Respiratory/Lung Sounds: Positive: Breath Sounds Present. Negative: Rales, Rhonchi, Wheezes Cardiovascular: Positive: Normal, RRR, Pulses are Symmetrical in both Upper and Lower Extremities, S1, S2. Negative: Murmur, Rub, Leg Edema Left, Leg Edema Right Abdomen Description: Positive: Guarding, Pulsatile Mass - pulse seen in ab. Negative: Nontender - epigastric TTP and reports referred sx " that makes my stomach weird", CVA Tenderness (R), CVA Tenderness (L), Hernia @ Bowel Sounds: Positive: Hypoactive Musculoskeletal: Positive: Normal, Strength/ROM Intact Neurological: Positive: Normal, Sensory/Motor Intact, Alert, Oriented to Person Place, Time, CN Intact II-III Psychiatric: Positive: Anxious - most likely d/t discomfort Diagnostics - Vital Signs Vital Signs Temp Pulse Resp BP Pulse Ox 07/28/18 06:03 97.1 F 60 16 143/102 99 - Laboratory Result Diagrams: 07/28/18 07:03 07/28/18 07:03 Lab Statement: Any lab studies that have been ordered have been reviewed, and results considered in the medical decision making process. Re-Evaluation - Re-Evaluation First Eval Change: Unchanged - pt continues to have nausea and ab discomfort - will try reglan and protonix Second Eval Change: Unchanged - pt still complaining of "heat in ab" (pain?) - will try morphine Third Eval Change: Improved - pt is more comfortable, resting on stretcher - nausea resolved, "heat" in ab improved Fourth Eval Change: Worse - upon d/c, pt reports his nausea returned and he is spitting into emesis bag - also reports pain is returning. Will try compazine and percocet PO if nausea resolves Fifth Eval Change: Improved - pain and nausea improved - pt resting comfortably again on stretcher Abdominal Pain Fem Course/Dx - Course Course Of Treatment: Pt presents w/ same sx as he's had over the past few years w/ his cyclical vomiting syndrome. Labs reveal mild elevation of WBC w/o left shift. All other labs are WNL. He initially did not have relief w/ zofran and pepcid so reglan and protonix were ordered. The latter in combination with morphine seemed to alleviate his sx however his BP increased while here and it was observed that his pulse was visible in his ab. This was discussed w/ Dr. Mclean and a CTA was ordered to r/o aneurysm/dissection (NOTE: CT from 04/2018 reports no abnormal findings of the aorta and no know hx of cardiovascular pathology). CTA w/o acute findings of vasulature/no hemorrhage or other organs that were observed. His nausea and pain oscilated during his time here but seems to be comfrotable again and so will d/c w/ new meds to control sx at home. Rx'd zofran ODT to replace his zofran tablets which he's not keeping down. Also added omeprazole as he has a h/o gastritis and does not take anything to alleviate this. Advised close f/u for his BP tomorrow w/ PCP or may go to [facility]. He is asx while here and reports his BP - Diagnoses Provider Diagnoses: Cyclical vomiting Discharge - Sign-Out/Discharge Documenting (check all that apply): Patient Departure - Discharge Plan Condition: Stable Disposition: HOME Prescriptions: Omeprazole CAP* [Prilosec CAP* 20 MG] 40 mg PO BID #28 cap. Ondansetron ODT TAB* [Zofran 4 MG Odt TAB*] 8 mg PO Q8H PRN #15 tab.odt PRN Reason: Nausea Patient Education Materials: Gastritis (ED), Hypertension (ED), Cyclic Vomiting Syndrome (ED) Referrals: Lv Blackman MD [Medical Doctor] - Ashkan King MD [Primary Care Provider] - [facility] [Outside] Additional Instructions: The definitive cause of your nausea with vomiting was not identified today however this appears to be a chronic recurring issue for you. A new anti- nausea medication has been sent to your pharmacy which should work better than the pills you are trying to swallow currently. The new medication dissolves in her mouth and asked quickly an effort to prevent she from vomiting the medication out of her system. Take this at the first sign of nausea - do not wait until you or vomiting. It is also important that she try to stay hydrated with water, Gatorade, soup broth, etc. to avoid dehydration. You have also been found to have gastritis in the past, a condition where your stomach lining is irritated. It is important that you start the new medication, omeprazole, that was also sent to your pharmacy to reduce her stomach acid and reduce pain and burning. Take this daily and follow-up with her primary care physician this week. Call to schedule an appointment today. U have also been given the number of a waitress may be helpful in further investigating your gastritis. If it is appropriate, they may schedule you to place a scope into your stomach to look for the extent and possibly cause of your gastritis. This may be arranged through your PCP. Additionally, he may avoid foods that can trigger worsening of her gastritis or vomiting. These may be acidic foods or stimulants (i.e. caffeine, chocolate, etc.). It is also important that she refrain from smoking marijuana at this may make her symptoms worse. If your symptoms worsen or you develop bloody vomiting or bloody stool, return to the emergency department. NOTE: your blood pressure was very high today. It is important that you follow- up with your PCP tomorrow - call today to schedule an appointment. If you cannot be seen tomorrow, follow-up with [facility] - call today to schedule for tomorrow. Tell these places your blood pressure has been 180-200/ 100's while here in ED. If you develop headache, change in vision, chest pain, shortness of breath, fatigue, arm pain/weakness, slurred speech, syncope, return to the ED - Billing Disposition and Condition Condition: STABLE Disposition: Home
[2018-07-28] MEDS ORDERED: Metoclopramide IV* 5 MG/ML 2 ML VIAL IV ONE (07:38)
[2018-07-28] MEDS ORDERED: Pantoprazole IV* 40 MG IV ONE (07:39)
[2018-07-28 07:41] LABS: EGFR Non-African American 77.4 (>60); INR 1.03 (0.77-1.02)
[2018-07-28] MEDS ORDERED: Morphine INJ* 2 MG/ML 1 ML SYRINGE (TWO MG - NEW SYRINGE VERSION) IV ONE (07:57)
[2018-07-28] MEDS ORDERED: Morphine INJ* 4 MG/ML 1 ML SYRINGE (NEW SYRINGE VERSION) ONE (08:03)
[2018-07-28] MEDS ORDERED: Iodixanol* (CONTRAST) 320 MG/ML 100 ML SDV IV ONE (08:33)
--- NOTE | 2018-07-28 09:50 | RAD ---
Indication: Abdominal aortic aneurysm. Abdominal pain with pulsatile mass. Contrast: Administered 100.0 ml of VISAPAQUE 320 mg/ml CTA of the abdominal aorta was performed. Sagittal and coronal reconstructed images were obtained. No evidence of abdominal aortic aneurysmal is noted. The celiac axis and superior mesenteric artery are unremarkable. The common iliac arteries are tortuous. External iliac arteries are unremarkable. Urinary bladder is unremarkable. The prostate is enlarged. The liver is normal in size. No focal lesions or intrahepatic duct dilatation is noted. The spleen is normal in size. The heart demonstrates no pericardial effusion. The lung roldan are clear. No adrenal masses are noted. The kidneys demonstrate symmetric nephrograms. No dilated loops of bowel are noted. IMPRESSION: There is no evidence of abdominal aortic aneurysm noted. No evidence of retroperitoneal hemorrhage is noted. Enlarged prostate.
[2018-07-28 10:28] LABS: Urine Appearance Clear; Urine Blood 1+ (Negative); Urine Color Yellow; Urine Ketones Negative (Negative); Urine Protein 1+(30 mg/dL) (Negative); Urine Specific Gravity 1.053 (1.010-1.030); Urine Urobilinogen Negative (Negative)
[2018-07-28] MEDS ORDERED: PROCHLORPERAZINE INJ 5 MG/ML 2 ML VIAL IV ONE (11:11)
[2018-07-28] MEDS ORDERED: oxyCODONE/Acetamin 5/325 MG* TAB PO ONE (11:22)
[2018-07-28 11:40] LABS: Urine Red Blood Cell 3+(>10/hpf) (Absent); Urine White Blood Cell Absent (Absent)
[2018-07-28 13:06] VITALS: BP 189/101
== END 2018-07-28 12:58 | disposition home or self-care (01) ==
LOC: ED 06:01
DX: G43.A0 Cyclical vomiting, in migraine, not intractable (principal); R11.2 Nausea with vomiting, unspecified; Z87.891 Personal history of nicotine dependence
CPT/HCPCS: 36415; 74174; 80053; 81003; 81015; 83605; 83690; 83735; 85025; 85610; 85730; 86140; 96374; 96375; 99285; A9270-GY; J0780; J2270; J2405; J2765; Q9967

== ENCOUNTER 2018-09-03 14:37 | Emergency (ER) | payer MEDICARE ==
--- NOTE | 2018-09-03 14:59 | ED ---
Abdominal Pain/Male - HPI Summary HPI Summary: The pt is a 68 y/o male presenting to [facility] c/o of acute on chronic abdominal pain worsened today. His caregiver notes N/V/D, chills, and diaphoresis. The intermittent episodes recur about every six months resulting in hospital visits. The sharp pain is rated 10/10 in severity. He took Zofran to no relief. The pt has an appointment with Dr. 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 he reports a hx of cyclic hyperemesis. - History of Current Complaint Chief Complaint: EDNauseaVomitDiarrh Stated Complaint: ABD PAIN Time Seen by Provider: 09/03/18 14:51 Hx Obtained From: Patient, Family/Casino Floorperson Onset/Duration: Still Present, Worse Since - Today, Other - Acute on chronic Timing: Intermittent Severity Initially: Severe Severity Currently: Severe Pain Intensity: 10 Pain Scale Used: 0-10 Numeric Location: Diffuse Character: Sharp Alleviating Factor(s): Nothing Associated Signs And Symptoms: Positive: Diaphoresis, Nausea, Vomiting, Diarrhea - Allergies/Home Medications Allergies/Adverse Reactions: Allergies Allergy/AdvReac Type Severity Reaction Status Date / Time No Known Allergies Allergy Verified 04/24/18 14:11 PMH/Surg Hx/FS Hx/Imm Hx Previously Healthy: No Endocrine/Hematology History: Denies: Hx Anticoagulant Therapy, Hx Blood Disorders, Hx Diabetes, Hx Thyroid Disease, Hx Anemia, Hx Unexplained Bleeding Cardiovascular History: Reports: Other Cardiovascular Problems/Disorders - Hyperlipidemia Denies: Hx Aneurysm, Hx Hypertension GI History: Reports: Other GI Disorders - gastritis, cyclical vomiting syndrome History: Reports: Hx Benign Prostatic Hyperplasia, Other Problems/ Disorders - Kidney CA, Kidney tumor resection Denies: Hx Renal Disease Musculoskeletal History: Denies: Hx Arthritis, Hx Osteoporosis Sensory History: Denies: Hx Contacts or Glasses, Hx Hearing Aid Opthamlomology History: Denies: Hx Contacts or Glasses - Cancer History Cancer Type, Location and Year: Kidney CA - Surgical History Surgery Procedure, Year, and Place: Kidney tumor resection, 2017 Infectious Disease History: No Infectious Disease History: Denies: History Other Infectious Disease, Traveled Outside the [place] in Last 30 Days - Family History Known Family History: Negative: Cardiac Disease, Hypertension - Social History Occupation: Unemployed Lives: With Family Alcohol Use: None Hx Substance Use: Yes Substance Use Type: Reports: Marijuana Substance Use Comment - Amount & Last Used: "Daily" Hx Tobacco Use: Yes - not currently Smoking Status (MU): Former Smoker Review of Systems Positive: Chills, Skin Diaphoresis Positive: Abdominal Pain, Vomiting, Diarrhea, Nausea All Other Systems Reviewed And Are Negative: Yes Physical Exam - Summary Physical Exam Summary: Appearance: The patient is well-nourished and is in moderate pain distress but no acute respiratory distress . Skin: The skin is warm and dry and skin color reflects adequate perfusion. HEENT: The head is normocephalic and atraumatic. The pupils are equal and reactive. The conjunctivae are clear and without drainage. Nares are patent and without drainage. Mouth reveals moist mucous membranes and the throat is without erythema and exudate. The external ears are intact. The ear canals are patent and without drainage. The tympanic membranes are intact. Neck: The neck is supple with full range of motion and non-tender. There are no carotid bruits. There is no neck vein distension. Respiratory: Chest is non-tender. Lungs are clear to auscultation and breath sounds are symmetrical and equal. Cardiovascular: Heart is regular rate and rhythm. There is no murmur or rub auscultated. There is no peripheral edema and pulses are symmetrical and equal. Abdomen: The abdomen is soft and non-tender. There are normal bowel sounds heard in all four quadrants and there is no organomegaly palpated. Musculoskeletal: There is no back tenderness noted. Extremities are non-tender with full range of motion. There is good capillary refill. There is no peripheral edema or calf tenderness elicited. Neurological: Patient is alert and oriented to person, place and time. The patient has symmetrical motor strength in all four extremities. Cranial nerves are grossly intact. Deep tendon reflexes are symmetrical and equal in all four extremities. Psychiatric: The patient has an appropriate affect and does not exhibit any anxiety or depression. Triage Information Reviewed: Yes Vital Signs On Initial Exam: Initial Vitals Temp Pulse Resp BP Pulse Ox 97 F 61 20 175/105 98 09/03/18 14:38 09/03/18 14:38 09/03/18 14:38 09/03/18 14:38 09/03/18 14:38 Vital Signs Reviewed: Yes Diagnostics - Vital Signs Vital Signs Temp Pulse Resp BP Pulse Ox 09/03/18 14:38 97 F 61 20 175/105 98 - Laboratory Result Diagrams: 09/03/18 15:24 09/03/18 15:24 Lab Statement: Any lab studies that have been ordered have been reviewed, and results considered in the medical decision making process. Abdominal Pain Fem Course/Dx - Course Course Of Treatment: Mr. Crews presented with abdominal pain and vomiting that started this morning soon after he got up. This is the same symptoms that he's had multiple times here and he says he has no diagnosis with the diagnosis here has been cyclic vomiting syndrome. His PCP has referred him to Dr. Tubbs later this month. He was given Ativan, Dilaudid and Reglan IV here as well as IV fluids and rested for quite a long time. However when he woke up he began to complain of his symptoms returning. He was then given Haldol IV and got significant relief of his symptomatology. At this point he is being observed and I expect he will be discharged soon. - Diagnoses Provider Diagnoses: Cyclical vomiting syndrome Discharge - Sign-Out/Discharge Documenting (check all that apply): Patient Departure - DC - Discharge Plan Condition: Stable Disposition: HOME Referrals: Ashkan King MD [Primary Care Provider] - Additional Instructions: Keep the upcoming appointment with Dr. Arley MD Return to the ED in of any new or worsening of symptoms. - Billing Disposition and Condition Condition: STABLE Disposition: Home - Attestation Statements Document Initiated by Gabrielleibaugusto: Yes Documenting Scribe: Sharri Hunt Provider For Whom Gabrielleibaugusto is Documenting (Include Credential): Dr. Gary Mclean MD Scribe Attestation: Sharri Ndiaye , scribed for Dr. Gary Mclean MD on 09/03/18 at 2150. Scribe Documentation Reviewed: Yes Provider Attestation: The documentation as recorded by the gabrielleibSharri casas accurately reflects the service I personally performed and the decisions made by me, Dr. Gary Mclean MD
[2018-09-03] MEDS ORDERED: LORazepam INJ* 2 MG/ML 1 ML VIAL IV ONE (15:00)
[2018-09-03] MEDS ORDERED: HYDROmorphone INJ* 2 MG/ML CARPUJECT SYRINGE IV SLOW PU ONE (15:00)
[2018-09-03] MEDS ORDERED: NS 0.9% 1000 ML* 1,000 ML IV ONE (15:00)
[2018-09-03] MEDS ORDERED: Metoclopramide IV* 5 MG/ML 2 ML VIAL IV ONE (15:00)
[2018-09-03] MEDS ORDERED: HYDROmorphone INJ1* 1 MG/ML SYRINGE IV SLOW PU ONE (15:05)
[2018-09-03 15:46] LABS: ABS Basophils 0 10^3/ul (0-0.2); ABS Eosinophils 0 10^3/ul (0-0.6); ABS Lymphocytes 0.7 10^3/ul (1.0-4.8); ABS Monocytes 0.5 10^3/ul (0-0.8); ABS Neutrophils 12.1 10^3/ul (1.5-7.7); ABS Nucleated RBC 0 10^3/ul; Eosinophil % 0 % (0-6); Hematocrit 38 % (42-52); Hemoglobin 13.4 g/dl (14.0-18.0); Lymphocyte % 5.4 % (25-47); Mean Corpuscular HGB Conc 36 g/dl (31-36); Mean Corpuscular Hemoglobin 33 pg (27-31); Mean Corpuscular Volume 93 fL (80-94); Mean Platelet Volume 6.7 fL (7.4-10.4); Nucleated Red Blood Cells % 0; Platelet Count 350 10^3/ul (150-450); Red Blood Count 4.05 10^6/ul (4.00-5.40); Red Cell Distribution Width 14 % (10.5-15); White Blood Count 13.4 10^3/ul (3.5-10.8)
[2018-09-03 15:55] LABS: EGFR Non-African American 98.1 (>60)
[2018-09-03] MEDS ORDERED: Haloperidol INJ IV/IM* 5 MG/ML AMP IV SLOW PU ONE (21:05)
--- NOTE | 2018-09-03 21:56 | ED ---
Progress - Progress Note Progress Note: The pt is a 68 y/o male presenting to [facility] c/o of acute on chronic abdominal pain worsened today. His caregiver notes N/V/D, chills, and diaphoresis. The intermittent episodes recur about every six months resulting in hospital visits. The sharp pain is rated 10/10 in severity. He took Zofran to no relief. 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 he reports a hx of cyclic hyperemesis. Patient was signed out from Dr. Mclean to Dr. Iyer pending departure during a shift change. Re-Evaluation - Re-Evaluation 1 Re-Evaluation Time: 22:45 Change: Worse - Has started dry heaving again Course/Dx - Course Course Of Treatment: Mr. Crews presented with abdominal pain and vomiting that started this morning soon after he got up. This is the same symptoms that he's had multiple times here and he says he has no diagnosis with the diagnosis here has been cyclic vomiting syndrome. His PCP has referred him to Dr. Tubbs later this month. He was given Ativan, Dilaudid and Reglan IV here as well as IV fluids and rested for quite a long time. However when he woke up he began to complain of his symptoms returning. He was then given Haldol IV and got significant relief of his symptomatology. I attempted to admit the patient, but Dr. Carbone, hospitalist, instructed that the patient should be discharged and told to take warm showers at home. - Diagnoses Provider Diagnoses: Cyclical vomiting syndrome - Provider Notifications Discussed Care Of Patient With: Savanna Purcell - Hospitalist Time Discussed With Above Provider: 22:53 Instructed by Provider To: Other - Discharge patient home and instruct him to take warm showers Discharge - Sign-Out/Discharge Documenting (check all that apply): Patient Departure - D/C, Receiving Sign-Out Receiving patient FROM: Gary Mclean - Pending departure - Discharge Plan Condition: Stable Disposition: HOME Patient Education Materials: Cyclic Vomiting Syndrome (ED) Referrals: Ashkan King MD [Primary Care Provider] - 3 Days Additional Instructions: Keep the upcoming appointment with Dr. Arley MD. Take warm showers at home to help alleviate symptoms. Return to the ED in case of any new or worsening of symptoms. - Billing Disposition and Condition Condition: STABLE Disposition: Home - Attestation Statements Document Initiated by Scribe: Yes Documenting Scribe: Kingsley Perdomo Provider For Whom Gabrielleibe is Documenting (Include Credential): Juanito Iyer MD Scribe Attestation: Kingsley Ndiaye, scribed for Juanito Iyer MD on 09/08/18 at 1111. Scribe Documentation Reviewed: Yes Provider Attestation: The documentation as recorded by the Kingsley wray accurately reflects the service I personally performed and the decisions made by me, Juanito Iyer MD
[2018-09-03 23:30] VITALS: BP 165/77
== END 2018-09-03 23:30 | disposition home or self-care (01) ==
LOC: ED 14:37
DX: G43.A0 Cyclical vomiting, in migraine, not intractable (principal); R61 Generalized hyperhidrosis; Z87.891 Personal history of nicotine dependence
CPT/HCPCS: 36415; 80053; 83605; 85025; 86140; 96374; 96375; 99283; J1170; J1630; J2060; J2765

== ENCOUNTER 2019-04-18 15:11 | Emergency (ER) | payer MEDICARE ==
[2019-04-18] MEDS: Al Hydrox/Mg Hydrox/Simet LIQ* 30 ML UDC PO ONE (17:27)
[2019-04-18] MEDS: Lidocaine 2% VISCOUS* 15 ML UDC PO ONE (17:28)
[2019-04-18 18:28] LABS: ABS Basophils 0.1 10^3/ul (0-0.2); ABS Lymphocytes 0.6 10^3/ul (1.0-4.8); ABS Monocytes 0.7 10^3/ul (0-0.8); ABS Neutrophils 12.9 10^3/ul (1.5-7.7); Eosinophil % 0.1 %; Hematocrit 42 % (42-52); Hemoglobin 14.4 g/dL (14.0-18.0); Lymphocyte % 4.5 %; Mean Corpuscular HGB Conc 34 g/dL (31-36); Mean Corpuscular Hemoglobin 32 pg (27-31); Mean Corpuscular Volume 93 fL (80-94); Mean Platelet Volume 6.8 fL (7.4-10.4); Platelet Count 355 10^3/uL (150-450); Red Blood Count 4.56 10^6 /uL (4.18-5.48); Red Cell Distribution Width 15 % (10-15); White Blood Count 14.4 10^3/uL (3.5-10.8)
[2019-04-18 18:45] LABS: Albumin/Globulin Ratio 1.4 (1-3); BUN/Creatinine Ratio 14.1 (8-20); C Reactive Protein 2.07 mg/L (<8.01); Calcium 10.1 mg/dL (8.6-10.3); EGFR African American 108.8 (>60); EGFR Non-African American 89.9 (>60); Globulin 3.7 g/dL (2-4); Potassium 4.3 mmol/L (3.5-5.0); Total Bilirubin 0.6 mg/dL (0.2-1.0); Total Protein 8.7 g/dL (6.4-8.9)
--- NOTE | 2019-04-18 18:55 | ED ---
Abdominal Pain/Male - HPI Summary HPI Summary: Patient is a 69 y/o M presenting to [facility] with complaints of central abdominal pain, N/V/D. He describes his pain as burning. He additionally states that he is experiencing chills at present. Sx onset around 0400 today. In room, there is an emesis bag with 4 ounces of bilious vomit. He took anti-nausea medication today with minimal relief, he cannot recall name of anti-nausea medication at this time. Patient claims that he has vomiting every time he has attempted to eat or drink today. Patient denies any Hx of HTN. STEWART, dizziness, CP, SOB, leg pain, urinary Sx are all denied. Patient was seen 03/18/19 for similar Sx, treated with tramadol and maalox. PMHx of cyclic vomiting. He denies Hx of kidney stones. Allergy to morphine is denied. PMHx of kidney cancer, gastritis, benign prostatic hyperplasia. He denies chemotherapy. PSHx of kidney resection. On triage, pain is rated 9/10, nothing is noted to aggravate/alleviate Sx. Home medications and allergies are reviewed. BP in room is 192/100, o2 100, pulse 66. - History of Current Complaint Chief Complaint: EDAbdPain Stated Complaint: SEVERE STOMACH PAIN PER PT Time Seen by Provider: 04/18/19 18:46 Hx Obtained From: Patient, Medical Records - [facility] visit Onset/Duration: Lasting Hours - since 0400 today, Still Present Timing: Constant, Lasting Hours - since 0400 today Severity Initially: Severe Severity Currently: Severe Pain Intensity: 10 Pain Scale Used: 0-10 Numeric Location: Diffuse, Umbilical Radiates: No Character: Sharp, Burning Aggravating Factor(s): Nothing Alleviating Factor(s): Nothing Associated Signs And Symptoms: Positive: Nausea, Vomiting, Diarrhea, Other - positive - chills; negative - SOB, STEWART, leg pain. Negative: Chest Pain, Dizzy, Urinary Symptoms - Allergies/Home Medications Allergies/Adverse Reactions: Allergies Allergy/AdvReac Type Severity Reaction Status Date / Time No Known Allergies Allergy Verified 04/18/19 15:23 Home Medications: Home Medications Al Hydrox/Mg Hydrox/Simet LIQ* [Maalox Plus*] 30 ml PO Q4H PRN 04/18/19 [ History Confirmed 04/18/19] PMH/Surg Hx/FS Hx/Imm Hx Previously Healthy: No Endocrine/Hematology History: Denies: Hx Anticoagulant Therapy, Hx Blood Disorders, Hx Diabetes, Hx Thyroid Disease, Hx Anemia, Hx Unexplained Bleeding Cardiovascular History: Reports: Hx Hypercholesterolemia Denies: Hx Aneurysm, Hx Hypertension GI History: Reports: Other GI Disorders - gastritis, cyclical vomiting syndrome History: Reports: Hx Benign Prostatic Hyperplasia, Other Problems/ Disorders - Kidney CA, Kidney tumor resection Denies: Hx Renal Disease Musculoskeletal History: Denies: Hx Arthritis, Hx Osteoporosis Sensory History: Denies: Hx Contacts or Glasses, Hx Hearing Aid Opthamlomology History: Denies: Hx Contacts or Glasses - Cancer History Cancer Type, Location and Year: Kidney CA - Surgical History Surgery Procedure, Year, and Place: Kidney tumor resection, 2017 Infectious Disease History: No Infectious Disease History: Denies: History Other Infectious Disease, Traveled Outside the [place] in Last 30 Days - Family History Known Family History: Negative: Cardiac Disease, Hypertension - Social History Alcohol Use: None Hx Substance Use: Yes Substance Use Type: Reports: Marijuana Substance Use Comment - Amount & Last Used: "Daily" Hx Tobacco Use: Yes - not currently Smoking Status (MU): Former Smoker Review of Systems Positive: Chills Negative: Chest Pain Negative: Shortness Of Breath Positive: Abdominal Pain, Vomiting, Diarrhea, Nausea Positive: no symptoms reported - urinary Musculoskeletal: Other - negative - leg pain Skin: Negative Neurological: Other - negative - dizziness Negative: Headache Psychological: Normal All Other Systems Reviewed And Are Negative: Yes Physical Exam - Summary Physical Exam Summary: Appearance: Ill-appearing, severe pain distress, moaning in pain, thrashing in stretcher, well-nourished; poor dentition Skin: Warm, color reflects adequate perfusion, dry Head: Normal Head/Face inspection, atraumatic Eyes: Conjunctiva clear ENT: Normal inspection except poor dentition Neck: Supple, no nodes, no JVD Respiratory: Lungs clear, normal breath sounds, no respiratory distress Cardio: RRR, No murmur, pulses normal, brisk capillary refill Abdomen: Soft, nontender, no rebound, no guarding, no masses, non-distended, despite pt writhing in pain Bowel sounds: Present Musculoskeletal: Strength Intact/ROM intact, no calf tenderness, no edema. Psychological: Normal Neuro: Alert, muscle tone normal, no focal deficit Triage Information Reviewed: Yes Vital Signs On Initial Exam: Initial Vitals Temp Pulse Resp BP Pulse Ox 98.2 F 63 20 185/109 98 04/18/19 15:20 04/18/19 15:20 04/18/19 15:20 04/18/19 15:20 04/18/19 15:20 Vital Signs Reviewed: Yes Diagnostics - Vital Signs Vital Signs Temp Pulse Resp BP Pulse Ox 04/18/19 16:49 97.9 F 65 20 201/105 99 04/18/19 15:20 98.2 F 63 20 185/109 98 - Laboratory Lab Results: Lab Results 04/18/19 04/18/19 04/18/19 Range/Units 18:20 18:20 18:20 WBC 14.4 H (3.5-10.8) 10^3/uL RBC 4.56 (4.18-5.48) 10^6 /uL Hgb 14.4 (14.0-18.0) g/dL Hct 42 (42-52) % MCV 93 (80-94) fL MCH 32 H (27-31) pg MCHC 34 (31-36) g/dL RDW 15 (10-15) % Plt Count 355 (150-450) 10^3/uL MPV 6.8 L (7.4-10.4) fL Neut % (Auto) 90.0 % Lymph % (Auto) 4.5 % [place] % (Auto) 4.9 % Eos % (Auto) 0.1 % Baso % (Auto) 0.5 % Absolute Neuts (auto) 12.9 H (1.5-7.7) 10^3/ul Absolute Lymphs (auto) 0.6 L (1.0-4.8) 10^3/ul Absolute Monos (auto) 0.7 (0-0.8) 10^3/ul Absolute Eos (auto) 0.0 (0-0.6) 10^3/ul Absolute Basos (auto) 0.1 (0-0.2) 10^3/ul Absolute Nucleated RBC 0.0 10^3/ul Nucleated RBC % 0.0 Sodium 138 (135-145) mmol/L Potassium 4.3 (3.5-5.0) mmol/L Chloride 103 (101-111) mmol/L Carbon Dioxide 24 (22-32) mmol/L Anion Gap 11 (2-11) mmol/L BUN 12 (6-24) mg/dL Creatinine 0.85 (0.67-1.17) mg/dL Est GFR ( Amer) 108.8 (>60) Est GFR (Non-Af Amer) 89.9 (>60) BUN/Creatinine Ratio 14.1 (8-20) Glucose 145 H (70-100) mg/dL Lactic Acid 2.8 H* (0.5-2.0) mmol/L Calcium 10.1 (8.6-10.3) mg/dL Total Bilirubin 0.60 (0.2-1.0) mg/dL AST 17 (13-39) U/L ALT 15 (7-52) U/L Alkaline Phosphatase 87 (34-104) U/L C-Reactive Protein 2.07 (<8.01) mg/L Total Protein 8.7 (6.4-8.9) g/dL Albumin 5.0 (3.2-5.2) g/dL Globulin 3.7 (2-4) g/dL Albumin/Globulin Ratio 1.4 (1-3) Lipase 12 (11.0-82.0) U/L Result Diagrams: 04/18/19 18:20 04/18/19 18:20 Lab Statement: Any lab studies that have been ordered have been reviewed, and results considered in the medical decision making process. - CT CT ABD/PEL CT Interpretation Completed By: Radiologist Summary of CT Findings: IMPRESSION: 1. No acute findings. 2. Linear opacities located in the inferior pole left kidney. This is unchanged. since the prior CT scan 2017. 3. Moderate enlargement of the prostate gland. The bladder is partially filled. with thickening of the bladder wall. Lateral thickening may be the result of. chronic bladder a low obstruction. Recommend further correlation. THIS REPORT WAS REVIEWED BY DR. KHALIL. Re-Evaluation - Re-Evaluation First Eval Re-Evaluation Time: 20:50 Change: Improved Comment: Patient resting comfortably, no further vomiting. CT ABD/PEL pending. Abdominal Pain Male Course/Dx - Course Course Of Treatment: Patient is a 69 y/o M presenting to [facility] with complaints of central abdominal pain, N/V/D. He describes his pain as burning. He additionally states that he is experiencing chills at present. Sx onset around 0400 today. In room, there is an emesis bag with 4 ounces of bilious vomit. He took anti-nausea medication today with minimal relief, he cannot recall name of anti-nausea medication at this time. Patient claims that he has vomiting every time he has attempted to eat or drink today. Patient denies any Hx of HTN. STEWART, dizziness, CP, SOB, leg pain, urinary Sx are all denied. Patient was seen for similar Sx, treated with tramadol and maalox. PMHx of cyclic vomiting. He denies Hx of kidney stones. Allergy to morphine is denied. PMHx of kidney cancer, gastritis, benign prostatic hyperplasia. He denies chemotherapy. PSHx of kidney resection. On physical exam, patient is ill-appearing, in severe pain distress, moaning in pain, thrashing in stretcher. Poor dentition. Abdomen is Soft, nontender, no rebound, no guarding, no masses, non-distended. Labs showed WBC 14.4, MCH 32, MPV 6.8, absolute neuts 12.9, absolute lymps 0.6, glucose 145, lactic acid 2.8, lipase 12. UA showed 3+ protein, 1+ blood, 3+ RBC , trace WBC, squamous epith cells present. During ED course, patient received Carafate 1 gm, fluids, Zofran 8 mg IV, morphine 4 mg IV, lidocaine 15 ml PO, Pepcid 40 mg IV and Maalox Plus [address] ABD/PEL IMPRESSION: 1. No acute findings. 2. Linear opacities located in the inferior pole left kidney. This is unchanged. since the prior CT scan 2017. 3. Moderate enlargement of the prostate gland. The bladder is partially filled. with thickening of the bladder wall. Lateral thickening may be the result of. chronic bladder a low obstruction. Recommend further correlation. Patient was discharged to home with PCP follow up and RX's for vomiting and pain that he has had in the past and provided some relief. - Diagnoses Differential Diagnosis/HQI/PQRI: AMI, Bowel Obstruction, Constipation, Gall Bladder Disease, Ischemic Bowel, Pneumonia, Ureteral Stone, Urinary Tract Infection Provider Diagnoses: Cyclic vomiting syndrome, Abdominal pain in male, Elevated BP without diagnosis of hypertension, Hx of malignant neoplasm of kidney, Hematuria Discharge - Sign-Out/Discharge Documenting (check all that apply): Patient Departure - DISCHARGE Patient Received Moderate/Deep Sedation with Procedure: No - Discharge Plan Condition: Stable Disposition: HOME Prescriptions: Famotidine TAB* [Pepcid 20 MG TAB*] 40 mg PO DAILY #30 tab Ondansetron ODT TAB* [Zofran 4 MG Odt TAB*] 4 mg PO Q6H PRN #20 tab.odt PRN Reason: Nausea traMADol TAB* [Ultram*] 50 mg PO Q6HR PRN #12 tab MDD 4 PRN Reason: Pain Patient Education Materials: Abdominal Pain (ED), Cyclic Vomiting Syndrome (ED) Referrals: Ashkan King MD [Primary Care Provider] - 2 Days Additional Instructions: Dr. Khalil has prescribed Zofran oral disseminating tablets for nausea and vomiting. She is also prescribed famotidine once a day for 30 days to help with the nausea and vomiting. He may also take tramadol 50 mg 4 times a day as needed for severe pain. While you in the emergency room you were given Pepcid sucralfate Zofran a GI cocktail and morphine for your vomiting and abdominal pain. He had good relief with these medications. The CT of your abdomen didn't show any acute changes. You still have the changes in your kidney but it is the same as on a previous scan. Return to the emergency room if you have any new or worsening symptoms. - Billing Disposition and Condition Condition: STABLE Disposition: Home - Attestation Statements Document Initiated by Sari: Yes Documenting Scribe: CRISTOFER TIDWELL Provider For Whom Sari is Documenting (Include Credential): YUNIEL KHALIL MD Scribe Attestation: CRISTOFER Ndiaye, scribed for YUNIEL KHALIL MD on 04/20/19 at 0550. Scribe Documentation Reviewed: Yes Provider Attestation: The documentation as recorded by the CRISTOFER wray accurately reflects the service I personally performed and the decisions made by me, YUNIEL KHALIL MD Status of Scribe Document: Viewed
[2019-04-18 19:16] LABS: Urine Appearance Cloudy; Urine Bacteria Absent (Absent); Urine Bilirubin Negative (Negative); Urine Blood 1+ (Negative); Urine Color Yellow; Urine Glucose Negative (Negative); Urine Ketones Negative (Negative); Urine Nitrite Negative (Negative); Urine Protein 3+(>=500 mg/dL) (Negative); Urine Red Blood Cell 3+(>10/hpf) (Absent); Urine Specific Gravity 1.018 (1.010-1.030); Urine Squamous Epithelial Cell Present (Absent); Urine Urobilinogen Negative (Negative); Urine White Blood Cell Trace(0-5/hpf) (Absent)
[2019-04-18] MEDS: Ondansetron INJ* 2 MG/ML VIAL IV ONE (19:45)
[2019-04-18] MEDS ORDERED: Sucralfate SUSP 1 GM/10 ml 10 ML UDC ONE (20:14)
[2019-04-18] MEDS: Famotidine IV* 10 MG/ML 2 ML (20 mg) IV SLOW PU ONE (20:18)
[2019-04-18] MEDS: Morphine 4 MG/ML VIAL (1 ml) 4 MG/ML VIAL IV ONE (20:18)
[2019-04-18] MEDS: NS 0.9% 1000 ML** 2,000 ML IV ONE (20:19)
[2019-04-18] MEDS: Sucralfate TAB* 1 GM PO ONE (20:21)
[2019-04-18 23:43] VITALS: BP 164/87
== END 2019-04-18 23:42 | disposition home or self-care (01) ==
LOC: ED 15:11
DX: G43.A0 Cyclical vomiting, in migraine, not intractable (principal); R10.9 Unspecified abdominal pain; R03.0 Elevated blood-pressure reading, without diagnosis of hypertension; R31.9 Hematuria, unspecified; Z85.528 Personal history of other malignant neoplasm of kidney; Z87.891 Personal history of nicotine dependence
CPT/HCPCS: 36415; 74176; 80053; 81003; 81015; 83605; 83690; 85025; 86140; 87086; 96361; 96374; 96375; 99283; A9270-GY; J2270; J2405

== ENCOUNTER 2019-08-28 15:10 | Observation (INO) | payer MEDICARE ==
[2019-08-28] MEDS ORDERED: NS 0.9% 1000 ML** 1,000 ML IV ONE ×2 (17:03→21:28)
[2019-08-28] MEDS ORDERED: Ondansetron INJ* 2 MG/ML VIAL IV ONE (17:03)
[2019-08-28] MEDS ORDERED: Morphine 4 MG/ML VIAL (1 ml) 4 MG/ML VIAL IV ONE (17:03)
--- NOTE | 2019-08-28 17:07 | ED ---
Abdominal Pain/Male - HPI Summary HPI Summary: This pt is a 69 y/o male presenting to [facility] [place] [place] c/o abd pain since this morning. Pt reports associated symptoms of fever, diarrhea, nausea, and vomiting. He denies abd pain radiating down to testicles. Pt unable to sit still secondary to pain. He rates his abd pain 8/10 in severity. Denies erythema of eyes, sore throat, chest pain, SOB, cough, dysuria, hematuria, myalgia, edema, rash, or dizziness. PMHx: kidney tumor resection. Pt admits to marijuana use but states he has not smoked marijuana in 1 week. - History of Current Complaint Chief Complaint: EDAbdPain Stated Complaint: ABD PAIN PER PT Time Seen by Provider: 08/28/19 16:56 Hx Obtained From: Patient Onset/Duration: Lasting Hours, Still Present Timing: Lasting Hours Severity Currently: Severe Pain Intensity: 10 Pain Scale Used: 0-10 Numeric Location: Diffuse Radiates: No Aggravating Factor(s): Nothing Alleviating Factor(s): Nothing Associated Signs And Symptoms: Positive: Nausea, Vomiting, Diarrhea. Negative: Fever, Cough, Chest Pain, Dizzy, Constipation, Urinary Symptoms - Allergies/Home Medications Allergies/Adverse Reactions: Allergies Allergy/AdvReac Type Severity Reaction Status Date / Time No Known Allergies Allergy Verified 08/28/19 18:00 PMH/Surg Hx/FS Hx/Imm Hx Endocrine/Hematology History: Denies: Hx Anticoagulant Therapy, Hx Blood Disorders, Hx Diabetes, Hx Thyroid Disease, Hx Anemia, Hx Unexplained Bleeding Cardiovascular History: Reports: Hx Hypercholesterolemia, Other Cardiovascular Problems/Disorders - Hyperlipidemia Denies: Hx Aneurysm, Hx Hypertension GI History: Reports: Other GI Disorders - gastritis, cyclical vomiting syndrome History: Reports: Hx Benign Prostatic Hyperplasia, Other Problems/ Disorders - Kidney CA, Kidney tumor resection Denies: Hx Renal Disease Musculoskeletal History: Denies: Hx Arthritis, Hx Osteoporosis Sensory History: Denies: Hx Contacts or Glasses, Hx Hearing Aid Opthamlomology History: Denies: Hx Contacts or Glasses - Cancer History Cancer Type, Location and Year: Kidney CA - Surgical History Surgical History: Yes Surgery Procedure, Year, and Place: Kidney tumor resection, 2017 Infectious Disease History: No Infectious Disease History: Denies: History Other Infectious Disease, Traveled Outside the [place] in Last 30 Days - Family History Known Family History: Negative: Cardiac Disease, Hypertension - Social History Alcohol Use: None Hx Substance Use: Yes Substance Use Type: Reports: Marijuana Substance Use Comment - Amount & Last Used: "Daily" Hx Tobacco Use: Yes - not currently Smoking Status (MU): Former Smoker Review of Systems Negative: Fever, Chills Negative: Erythema Negative: Sore Throat Negative: Chest Pain Negative: Shortness Of Breath, Cough Positive: Abdominal Pain, Vomiting, Diarrhea, Nausea Negative: dysuria, hematuria Negative: Myalgia, Edema Negative: Rash Neurological: Other - NEGATIVE: dizziness All Other Systems Reviewed And Are Negative: Yes Physical Exam - Summary Physical Exam Summary: Constitutional: Well-developed, Well-nourished, Alert. Writhing in pain. Skin: Warm, Dry HENT: Normocephalic; Atraumatic Eyes: Conjunctiva normal Neck: Musculoskeletal ROM normal neck. (-) JVD, (-) Stridor, (-) Tracheal deviation Cardio: Rhythm regular, rate normal, Heart sounds normal; Intact distal pulses; The pedal pulses are 2+ and symmetric. Radial pulses are 2+ and symmetric. (-) Murmur Pulmonary/Chest wall: Effort normal. (-) Respiratory distress, (-) Wheezes, (-) Rales Abd: Soft, No abdominal tenderness, (-) Distension, (-) Guarding, (-) Rebound Musculoskeletal: (-) Edema. No CVA tenderness. Lymph: (-) Cervical adenopathy Neuro: Alert, Oriented x3 Psych: Mood and affect Normal Triage Information Reviewed: Yes Vital Signs On Initial Exam: Initial Vitals Temp Pulse Resp BP Pulse Ox 96.7 F 64 18 204/104 99 08/28/19 15:15 08/28/19 15:15 08/28/19 15:15 08/28/19 15:15 08/28/19 15:15 Vital Signs Reviewed: Yes Procedures - Sedation Patient Received Moderate/Deep Sedation with Procedure: No Diagnostics - Vital Signs Vital Signs Temp Pulse Resp BP Pulse Ox 08/28/19 15:15 96.7 F 64 18 204/104 99 - Laboratory Result Diagrams: 08/28/19 17:44 08/28/19 17:48 Lab Statement: Any lab studies that have been ordered have been reviewed, and results considered in the medical decision making process. Abdominal Pain Male Course/Dx - Course Assessment/Plan: Pt is a 69 y/o male presenting to [facility] c/o abd pain since this morning. Pt reports associated symptoms of fever, diarrhea, nausea, and vomiting. He denies abd pain radiating down to testicles. Pt unable to sit still secondary to pain. He rates his abd pain 8/10 in severity. Lab results show WBC of 16.9, anion gap of 13, glucose of 136, lactic acid of 3.1. UA shows 3+ protein, 1+ blood, 3+ RBC, present squamous epithelial cells. In the ED course the pt was given IV fluids, zofran, morphine. CT abdomen/pelvis was ordered. CT is still pending. Pt will be signed out to Dr. Stein pending CT results and disposition. - Diagnoses Provider Diagnoses: Abdominal pain Discharge ED - Sign-Out/Discharge Documenting (check all that apply): Sign-Out Patient Signing out patient TO: Felisha Stein - Discharge Plan Condition: Stable Referrals: Ashkan King MD [Primary Care Provider] - - Attestation Statements Document Initiated by Scribe: Yes Documenting Scribe: Meenakshi Garcia Provider For Whom Scribe is Documenting (Include Credential): Wade Brady MD Scribe Attestation: Meenakshi Ndiaye, scribed for Wade Brady MD on 08/28/19 at 1918. Status of Scribe Document: Ready
[2019-08-28 17:57] LABS: ABS Basophils 0.1 10^3/ul (0-0.2); ABS Lymphocytes 0.6 10^3/ul (1.0-4.8); ABS Monocytes 0.8 10^3/ul (0-0.8); ABS Neutrophils 15.3 10^3/ul (1.5-7.7); Hematocrit 41 % (42-52); Hemoglobin 14.5 g/dL (14.0-18.0); Lymphocyte % 3.7 %; Mean Corpuscular HGB Conc 35 g/dL (31-36); Mean Corpuscular Hemoglobin 32 pg (27-31); Mean Corpuscular Volume 91 fL (80-94); Platelet Count 369 10^3/uL (150-450); Red Blood Count 4.55 10^6 /uL (4.18-5.48); Red Cell Distribution Width 15 % (10-15); White Blood Count 16.9 10^3/uL (3.5-10.8)
[2019-08-28 18:13] LABS: ALT 15 U/L (7-52); Albumin 4.8 g/dL (3.2-5.2); Albumin/Globulin Ratio 1.3 (1-3); Alkaline Phosphatase 82 U/L (34-104); BUN/Creatinine Ratio 15.7 (8-20); Blood Urea Nitrogen 14 mg/dL (6-24); C Reactive Protein 2.36 mg/L (<8.01); CO2 Carbon Dioxide 24 mmol/L (22-32); Calcium 10.1 mg/dL (8.6-10.3); Chloride 101 mmol/L (101-111); EGFR African American 103.2 (>60); EGFR Non-African American 85.3 (>60); Globulin 3.8 g/dL (2-4); Glucose 136 mg/dL (70-100); Sodium 138 mmol/L (135-145); Total Protein 8.6 g/dL (6.4-8.9)
[2019-08-28 18:34] LABS: Anion Gap 13 mmol/L (2-11)
--- NOTE | 2019-08-28 19:11 | ED ---
Progress - Progress Note Progress Note: This pt is a signout from Dr. Brady to Dr. Stein at [address] A/P. CT A/P IMPRESSION: 1. Findings suggest colitis. 2. Prostatomegaly. At 2013, Dr. Mensah agrees to admit the pt. Course/Dx - Course Course Of Treatment: This pt is a signout from Dr. Brady to Dr. Stein at [address] A/P. CT A/P IMPRESSION: 1. Findings suggest colitis. 2. Prostatomegaly. At 2013, Dr. Mensah agrees to admit the pt. - Diagnoses Provider Diagnoses: Abdominal pain, Colitis - Provider Notifications Discussed Care Of Patient With: Eamon Mensah Time Discussed With Above Provider: 20:14 Instructed by Provider To: Other - Dr. Mensah agrees to admit the pt. Discharge ED - Sign-Out/Discharge Documenting (check all that apply): Patient Departure - admit, Receiving Sign- Out Receiving patient FROM: Wade Brady - This pt is a signout from Dr. Brady to Dr. Stein at [address] A/P. - Discharge Plan Condition: Stable Disposition: ADMITTED TO [facility] - Billing Disposition and Condition Condition: STABLE Disposition: Admitted to [facility] - Attestation Statements Document Initiated by Gabrielleibe: Yes Documenting Scribe: Kali Reyes Provider For Whom Sari is Documenting (Include Credential): Dr. Felisha Stein MD Scribe Attestation: Kali Ndiaye scribed for Dr. Felisha Stein MD on 08/29/19 at 0115. Scribe Documentation Reviewed: Yes Provider Attestation: The documentation as recorded by the Kali wray accurately reflects the service I personally performed and the decisions made by me, Dr. Felisha Stein MD Status of Scribe Document: Viewed
[2019-08-28 19:14] LABS: Urine Appearance Clear; Urine Bacteria Absent (Absent); Urine Bilirubin Negative (Negative); Urine Blood 1+ (Negative); Urine Color Yellow; Urine Glucose Negative (Negative); Urine Ketones Negative (Negative); Urine Nitrite Negative (Negative); Urine Protein 3+(>=500 mg/dL) (Negative); Urine Red Blood Cell 3+(>10/hpf) (Absent); Urine Specific Gravity 1.018 (1.010-1.030); Urine Squamous Epithelial Cell Present (Absent); Urine Urobilinogen Negative (Negative); Urine White Blood Cell Trace(0-5/hpf) (Absent)
[2019-08-28] MEDS ORDERED: Ketorolac INJ* 30 MG/ML 1 ML VIAL IV PUSH ONE (19:26)
[2019-08-28] MEDS ORDERED: Ciprofloxacin 400MG IVPREMIX(* 400 MG/200 ML BAG IVPB ONE (20:14)
[2019-08-28] MEDS ORDERED: metroNIDAZOLE IV 500 MG/100ML* 500 MG/100 ML BAG IVPB ONE (20:15)
[2019-08-28] MEDS ORDERED: Acetaminophen TAB* 325 MG PO PRN (20:53)
[2019-08-28] MEDS ORDERED: NS 0.9% 1000 ML** 1,000 ML IV SCH (21:00)
[2019-08-28] MEDS ORDERED: Ondansetron INJ* 2 MG/ML VIAL IV PRN (21:23)
[2019-08-28 21:26] LABS: Potassium Redraw 3.9 mmol/L (3.5-5.0)
[2019-08-28] MEDS ORDERED: hydrALAZINE IV* 20 MG/ML VIAL IV SLOW PU PRN (21:41)
[2019-08-28] MEDS ORDERED: cefTRIAXone(*) 1 GM in NS 0.9% 50 ML* 50 ML IVPB SCH (22:00)
--- NOTE | 2019-08-28 22:02 | PN ---
Sepsis Event Evaluation Date of Evaluation: 08/28/19 Time of Evaluation: 20:45 Current Stage of Sepsis: Sepsis Vital Signs - Last 12 Hours: Vital Signs - 12 hr Temp Pulse Resp BP Pulse Ox 08/28/19 21:05 160/98 08/28/19 20:37 184/94 08/28/19 20:05 72 203/98 99 08/28/19 20:04 67 99 08/28/19 17:44 22 08/28/19 15:15 96.7 F 64 18 204/104 99 Lactic Acid: 08/28/19 08/28/19 17:48 21:03 Lactic Acid 3.1 H* 1.5 - Cardiopulmonary Exam Capillary Refill: Immediate Respiratory: Symmetrical Chest Expansion and Respiratory Effort Cardiovascular: NL Sounds; No Murmurs; No JVD, No Edema - Peripheral Pulse Exam Radial Pulses: Bilateral Normal Pedal Pulses: Bilateral Normal Posterior Tibial Pulse: Bilateral Normal - Skin Exam Skin Exam: Normal Turgor, Conley - Franky Coma Scale Best Eye Response: 4 - Spontaneous Best Motor Response: 6 - Obeys Commands Best Verbal Response: 5 - Oriented Coma Scale Total: 15 Assess/Plan/Problems-Billing Assessment: - Patient Problems (1) Sepsis Current Visit: Yes Status: Acute Comment: Patient met severe sepsis with elevated lactic acid, WBC's and increased respirations - suspect that the patient likely has elevated lactic acid from vomiting and dehydration - patient was given IVF in the ER and repleat lactic acid was 1.5 - IV antibiotic were started for colitis - ceftriaxone and flagyl -will continue to monitor - sepsis is resolving at this time
--- NOTE | 2019-08-28 22:05 | HP ---
CC: Dr. King * [facility]: DATE OF ADMISSION: 08/28/19 PROVIDER: Joceline Juárez NP PRIMARY CARE PROVIDER: Dr. King. ATTENDING PHYSICIAN WHILE IN THE HOSPITAL: Dr. Eamon Mensah * (dictated by Joceline Juárez NP). CHIEF COMPLAINT: Nausea, vomiting, and abdominal pain. HISTORY OF PRESENT ILLNESS: Mr. Crews is a 69-year-old male with a past medical history significant for gastritis, BPH, hyperlipidemia, and history of renal cell carcinoma, status post tumor resection, who presented to the emergency room with complaints of nausea, vomiting and abdominal pain since 6 a.m. with diarrhea. He does report some diaphoresis and fever at home that started yesterday. The patient denies any black or tarry stools. He denies any blood in the diarrhea. He denies any vomiting of blood or black coffee- ground emesis. The patient reports that he was feeling well up until this morning when he developed nausea, vomiting and severe abdominal pain, so he presented to the emergency room for further evaluation. The patient denies any chest pain or shortness of breath. Denies any gross hematuria, dysuria, focal weakness, sensory loss, visual complaints, dysphagia, arthralgias, myalgias, rashes, lesions, open sores, psychosis, or anxiety. While in the emergency room, the patient had routine lab work and the CT of the abdomen and pelvis, which showed findings consistent with a colitis. He has an elevated white count of 16.9. Due to these findings, Hospital Medicine was asked to see and evaluate for admission. PAST MEDICAL HISTORY: Significant for: 1. History of gastritis. 2. BPH. 3. Hyperlipidemia. 4. History of renal cell carcinoma, status post resection. PAST SURGICAL HISTORY: Kidney resection for renal cell carcinoma. HOME MEDICATIONS: Include tamsulosin 0.4 mg p.o. daily. ALLERGIES: No known drug allergies. FAMILY HISTORY: The patient's mother at the age of 92 of an old age. Father at 77 of a stroke. Sister who was autistic and another sister from a stroke. His third sister who of unknown causes and multiple brothers who from excessive alcohol use and alcoholism. SOCIAL HISTORY: The patient is a former smoker, he quit smoking approximately 12 years ago. He does report marijuana use, says last used about 2 weeks ago. Denies any alcohol use. His surrogate decision maker in the event he is unable to make his own decisions is his girlfriend, Irina. He is a full code. REVIEW OF SYSTEMS: The patient does report fevers. He denies any unintended weight loss. He denies any chest pain or edema, cough, hemoptysis, or shortness of breath. He does report nausea, vomiting, diarrhea and abdominal pain. Denies any black or tarry stools. Denies any blood in the vomit or stools. Denies any coffee- ground emesis. Denies any gross hematuria, dysuria , focal weakness, sensory loss, visual complaints, dysphagia, arthralgias, myalgias, rashes, lesions, open sores, psychosis, or anxiety. PHYSICAL EXAMINATION GENERAL: At this time, Mr. Crews is a 69-year-old male. He is alert and oriented, resting on the stretcher in in the emergency room. He appears to have mild abdominal pain at this time. VITAL SIGNS: Blood pressure is 203/98, heart rate is 72, respirations are 22, O2 saturation 99%, temperature was 96.7. HEENT: Head is atraumatic, normocephalic. Eyes: EOMs are intact. Sclerae anicteric and not pale. Oral mucosa appeared to be dry. NECK: Supple. LUNGS: Clear to auscultation bilaterally. No wheezes, rales, or rhonchi. CARDIAC: S1, S2. Regular rate and rhythm. No murmurs, rubs, or gallops. ABDOMEN: Soft. He denies any tenderness with palpation. Bowel sounds are active x4. EXTREMITIES: He is able to move all 4 extremities. There is no clubbing or cyanosis. Pedal pulses are +2 bilaterally. NEUROLOGIC: He is awake, alert, and oriented x3. Speech is clear. Thought process is intact. There are no gross focal deficits. SKIN: Intact. DIAGNOSTIC STUDIES/LAB DATA: WBCs are 16.9, RBCs 4.55, hemoglobin 14.5, hematocrit 41, platelet count 369. Sodium 138, potassium not reported, chloride 101, carbon dioxide was 24, anion gap was 13, BUN was 14, creatinine 0.89, glucose was 136. Lactic acid 3.1. Calcium 10.1. ASTs noted reported, ALTs were 15, alkaline phosphatase 82, lipase was 18. Urine showed 3+ protein, 1+ blood, rbc's were 3+, squamous epithelial cells were present, otherwise was negative. The patient had a CT of the abdomen and pelvis, radiologist's impression: Findings consistent with colitis, prostatomegaly. ASSESSMENT AND PLAN: Mr. Crews is a 69-year-old male with a past medical history significant for gastritis, enlarged prostate, hyperlipidemia, history of renal cell carcinoma, who presented to the emergency room with abdominal pain , nausea and vomiting. He will be admitted under observation for: 1. Abdominal pain. The patient has reported diarrhea, nausea, and vomiting. At this point, it appears the patient's abdominal pain could be related to colitis. He is receiving 1 L of normal saline in the emergency room. I will give him another liter as the patient does meet Severe Sepsis criteria with elevated respirations and elevated white count suspect colitis and elevated lactic acid of 3.1. The patient is afebrile. He does have an elevated lactic acid of 3.1, which i suspect could be related to his vomiting inc ombination of underlying infection. I will repeat lactic acid in 4 hours. He will have fluid bolusing and we will give him ceftriaxone and Flagyl to treat his colitis. I will send stool for cultures and leukocytes. We will monitor the patient overnight. Should the patient's symptoms not improve could consider consultation to GI. The patient has also had previous episodes in the past with the same presentation related to gastritis. 2. Enlarged prostate. The patient should continue on tamsulosin as previously prescribed. 3. History of gastritis. I will give him Protonix IV. When he is able to tolerate p.o., we can switch him to omeprazole p.o. 4. FEN: I will place him on clear liquid diet. 5. Code status: He is a full code. 6. DVT prophylaxis: I will place him on heparin subcu. 7. Disposition: The patient will be placed inpatient on [address] [place] [address]. TIME SPENT: Time spent on this admission was 60 minutes, greater than half that time was spent at the bedside, reviewing events leading thus far to his hospitalization, performing physical exam and reviewing my plan of care. I have discussed this with my attending, Dr. Eamon Mensah; he is in agreement with my plan. JOCELINE JUÁREZ, MAINTENANCE MECHANIC SUPERVISOR [id number]/[facility] #: [id number] YURI
[2019-08-28] MEDS: Pantoprazole IV* 40 MG IV SCH (23:39)
[2019-08-28] MEDS: amLODIPine TAB* 5 MG PO SCH (23:39)
[2019-08-28] MEDS: Heparin VIAL(*) 5000 UNITS/ML VIAL (FIVE THOUSAND) SUBCUT SCH (23:39)
[2019-08-29] MEDS ORDERED: metroNIDAZOLE IV 500 MG/100ML* 500 MG/100 ML BAG IVPB ONE (04:00)
[2019-08-29] MEDS: Heparin VIAL(*) 5000 UNITS/ML VIAL (FIVE THOUSAND) SUBCUT SCH (05:50)
[2019-08-29 07:42] LABS: Hematocrit 39 % (42-52); Hemoglobin 13.7 g/dL (14.0-18.0); Mean Corpuscular HGB Conc 35 g/dL (31-36); Mean Corpuscular Hemoglobin 32 pg (27-31); Mean Corpuscular Volume 92 fL (80-94); Mean Platelet Volume 7.2 fL (7.4-10.4); Platelet Count 330 10^3/uL (150-450); Red Blood Count 4.25 10^6 /uL (4.18-5.48); Red Cell Distribution Width 15 % (10-15); White Blood Count 17.6 10^3/uL (3.5-10.8)
[2019-08-29 07:56] LABS: BUN/Creatinine Ratio 14.8 (8-20); Calcium 8.4 mg/dL (8.6-10.3); EGFR African American 104.5 (>60); EGFR Non-African American 86.4 (>60); Potassium 3.5 mmol/L (3.5-5.0)
[2019-08-29 08:42] LABS: ABS Basophils 0.1 10^3/ul (0-0.2); ABS Lymphocytes 1.8 10^3/ul (1.0-4.8); ABS Neutrophils 13.7 10^3/ul (1.5-7.7); Eosinophil % 0.1 %; Lymphocyte % 10.2 %
[2019-08-29] MEDS: amLODIPine TAB* 5 MG PO SCH (08:54)
[2019-08-29] MEDS: Pantoprazole IV* 40 MG IV SCH (08:54)
[2019-08-29] MEDS ORDERED: Tamsulosin CAP* 0.4 MG PO SCH (09:00)
[2019-08-29 11:52] VITALS: BP 110/51
--- NOTE | 2019-08-30 04:29 | DS ---
CC: Dr. Ashkan King * DISCHARGE SUMMARY: DATE OF ADMISSION: 08/28/19 DATE OF DISCHARGE: 08/29/19 PRIMARY CARE PROVIDER: Dr. Ashkan King. ATTENDING PHYSICIAN: Dr. Corie Richards.* (DICTATED BY SIERRA GARCIA NP) PRIMARY DIAGNOSES: 1. Colitis. 2. Severe sepsis. 3. Hypertension. SECONDARY DIAGNOSES: 1. History of gastritis. 2. Benign prostatic hypertrophy. STUDIES WHILE IN THE HOSPITAL: 1. Abdomen and pelvis CT on 08/28/19 reads as findings suggest colitis. Prostatomegaly. HISTORY OF PRESENT ILLNESS AND HOSPITAL COURSE: Mr. Crews is a 69-year-old male with past medical history of gastritis and BPH who presented to the emergency room on 08/28/19 with complaints of nausea, vomiting, and abdominal pain. Please see the history and physical by Joceline Juárez NP for complete summary of the events leading up to this hospitalization. In short, the patient woke in the morning with somewhat sudden onset of nausea, vomiting, and abdominal pain, also with some diarrhea. He did report diaphoresis and fevers. In the emergency room, the patient had a CT as noted above. He was noted to meet criteria for severe sepsis with leukocytosis, tachypnea, and a lactic acid of 3.1, but no hypotension. He was admitted by the hospitalist service. He subsequently was started on ceftriaxone and Flagyl. Lactic acidosis resolved with IV fluids and tachypnea resolved overnight. The patient had an uneventful night. This morning, he denies any abdominal pain, nausea, or vomiting. He did tolerate clear liquids for breakfast and was requesting to exempt to eat more food for lunch. He then ultimately tolerated a soft diet at lunch. On exam, he has no focal neurological deficits. He is alert and oriented x4. His heart has a regular rate and rhythm without murmurs, rubs, or gallops. Lungs are clear to auscultation without rhonchi, wheezes, or rales. Abdomen is soft and nontender to palpation with normoactive bowel sounds. There is no edema. Physical exam is otherwise benign. Mr. Crews is stable for discharge today. Most recent vital signs are as follows: Temperature 99.4, heart rate 61, respiratory rate 16, oxygen saturation 98% on room air, blood pressure is 110/51. DISCHARGE MEDICATIONS: New medications: 1. Amlodipine 5 mg p.o. daily. 2. Ciprofloxacin 500 mg p.o. b.i.d. x9 days. 3. Flagyl 500 mg p.o. t.i.d. x9 days. Continued medications: 1. Tamsulosin 0.4 mg p.o. daily. 2. Maalox 30 mL p.o. q.4 hours p.r.n. indigestion. 3. Align 4 mg p.o. daily. 4. Omeprazole 10 mg p.o. daily. DISCHARGE PLAN: Mr. Crews will be discharged to home. Activity will be as tolerated. Diet will be regular as tolerated. I have prescribed 9 days of Cipro and Flagyl to complete a total of 10 days of antibiotic therapy for his colitis. The patient additionally was started on amlodipine due to hypertension noted here in the hospital and he has responded well to that medication, so he should continue this. He can resume his other usual medications as noted above. He should follow up with his primary care provider in the next 4 to 7 days. He has been advised to return to the emergency room or the nearest hospital for any worsening of symptoms, shortness of breath, lightheadedness, dizziness, chest discomfort, high fevers, chills, night sweats, loss of consciousness, or any other worrisome signs or symptoms. DISCHARGE CONDITION: Stable. DISCHARGE DISPOSITION: Home. This is a summarized report of a complex medical history and hospital stay. For further details, please see the entire medical record. TIME SPENT: Approximately 40 minutes was spent on this discharge. SIERRA GARCIA, AIR CONDITIONING MANAGER [id number]/[facility] #: [id number] YURI
== END 2019-08-29 15:45 | disposition home or self-care (01) ==
LOC: ED 15:10 → MED 20:53
PROVIDERS: ADMIT Nurse Practitioner; ATTEND Internal Medicine
DX: K52.9 Noninfective gastroenteritis and colitis, unspecified (principal); R65.20 Severe sepsis without septic shock; I10 Essential (primary) hypertension; N40.0 Benign prostatic hyperplasia without lower urinary tract symptoms; Z79.899 Other long term (current) drug therapy; Z85.528 Personal history of other malignant neoplasm of kidney; Z90.5 Acquired absence of kidney; Z87.891 Personal history of nicotine dependence; E78.5 Hyperlipidemia, unspecified
CPT/HCPCS: 36415; 74176; 80048; 80053; 81003; 81015; 83605; 83690; 85025; 86140; 87040; 87086; 96361; 96365; 96366; 96367; 96372; 96375; 96376; 99284; A9270-GY; G0378; J0696; J1644; J1885; J2270; J2405

== ENCOUNTER 2019-10-12 14:39 | Observation (INO) | payer MEDICARE ==
[2019-10-12] MEDS ORDERED: Morphine 4 MG/ML VIAL (1 ml) 4 MG/ML VIAL IV ONE ×2 (16:59→19:35)
[2019-10-12] MEDS ORDERED: Ondansetron INJ* 2 MG/ML VIAL IV ONE (16:59)
--- NOTE | 2019-10-12 16:59 | ED ---
Abdominal Pain/Male - HPI Summary HPI Summary: This pt is a 69 y/o male presenting to [facility] c/o abd pain that began this morning. Pt reports he first had diarrhea this morning and then began to experience abd pain. He described abd pain as cramping. Pt also notes nausea and vomiting. He states he is unable to keep any liquids down secondary to vomiting. Denies fever, chills, chest pain, SOB. Pt has hx of recent colitis. PSHx: kidney tumor resection. - History of Current Complaint Chief Complaint: EDAbdPain Stated Complaint: ABDOMINAL PAIN PER PT Time Seen by Provider: 10/12/19 16:48 Hx Obtained From: Patient Onset/Duration: Lasting Hours, Still Present Timing: Lasting Hours Severity Currently: Severe Pain Intensity: 10 Pain Scale Used: 0-10 Numeric Location: Diffuse Radiates: No Character: Cramping Aggravating Factor(s): Nothing Alleviating Factor(s): Nothing Associated Signs And Symptoms: Positive: Nausea, Vomiting, Diarrhea. Negative: Fever, Chest Pain - Allergies/Home Medications Allergies/Adverse Reactions: Allergies Allergy/AdvReac Type Severity Reaction Status Date / Time No Known Allergies Allergy Verified 10/12/19 14:46 Home Medications: Home Medications Famotidine TAB* [Pepcid 20 MG TAB*] 20 mg PO DAILY 10/12/19 [History Confirmed 10/12/19] Metoclopramide TAB* [Reglan TAB*] 10 mg PO Q6H 10/12/19 [History Confirmed 10/12] Omeprazole CAP (NF) [Prilosec CAP* 20 MG] 20 mg PO DAILY 10/12/19 [History Confirmed 10/12/19] Ondansetron TAB* [Zofran 4 MG Tab*] 4 mg PO Q6H PRN 10/12/19 [History Confirmed 10/12/19] Ondansetron [Zuplenz] 4 mg PO DAILY PRN 10/12/19 [History Confirmed 10/12/19] Turmeric 400 mg PO DAILY 10/12/19 [History Confirmed 10/12/19] traMADol TAB* [Ultram*] 50 mg PO Q6HR PRN 10/12/19 [History Confirmed 10/12/19] PMH/Surg Hx/FS Hx/Imm Hx Endocrine/Hematology History: Denies: Hx Anticoagulant Therapy, Hx Blood Disorders, Hx Diabetes, Hx Thyroid Disease, Hx Anemia, Hx Unexplained Bleeding Cardiovascular History: Reports: Hx Hypercholesterolemia, Other Cardiovascular Problems/Disorders - Hyperlipidemia Denies: Hx Aneurysm, Hx Hypertension GI History: Reports: Other GI Disorders - gastritis, cyclical vomiting syndrome History: Reports: Hx Benign Prostatic Hyperplasia, Other Problems/ Disorders - Kidney CA, Kidney tumor resection Denies: Hx Renal Disease Musculoskeletal History: Denies: Hx Arthritis, Hx Osteoporosis Sensory History: Denies: Hx Contacts or Glasses, Hx Hearing Aid Opthamlomology History: Denies: Hx Contacts or Glasses - Cancer History Cancer Type, Location and Year: Kidney CA - Surgical History Surgical History: Yes Surgery Procedure, Year, and Place: Kidney tumor resection, 2017 Infectious Disease History: No Infectious Disease History: Denies: History Other Infectious Disease, Traveled Outside the [place] in Last 30 Days - Family History Known Family History: Negative: Cardiac Disease, Hypertension - Social History Alcohol Use: None Hx Substance Use: Yes Substance Use Type: Reports: Marijuana Substance Use Comment - Amount & Last Used: "Daily" Hx Tobacco Use: Yes - not currently Smoking Status (MU): Former Smoker Review of Systems Negative: Fever, Chills Negative: Chest Pain Negative: Shortness Of Breath Positive: Abdominal Pain, Vomiting, Diarrhea, Nausea All Other Systems Reviewed And Are Negative: Yes Physical Exam - Summary Physical Exam Summary: VITAL SIGNS: Reviewed. GENERAL: Patient is a well-developed and nourished male. Patient is in acute distress secondary to pain and vomiting. HEAD AND FACE: Normocephalic and atraumatic. EYES: PERRLA, EOMI x 2, No injected conjunctiva. EARS: Hearing grossly intact. Ear canals and tympanic membranes are WNL. MOUTH: Oropharynx within normal limits. NECK: Supple, trachea is midline, no adenopathy, no JVD. CHEST: Symmetric, no tenderness at palpation. LUNGS: Clear to auscultation bilaterally. No wheezing or crackles. CVS: RRR, S1 and S2 present, no murmurs or gallops appreciated. ABDOMEN: Soft, diffuse abdominal tenderness. No signs of distention. Positive bowel sounds. No rebound, no guarding, and no masses palpated. No abdominal bruit or pulsations. EXTREMITIES: FROM in all major joints, no edema, no cyanosis or clubbing. NEURO: Alert and oriented x 3. No acute neurological deficits. Speech is normal. SKIN: Dry and warm. Triage Information Reviewed: Yes Vital Signs On Initial Exam: Initial Vitals Temp Pulse Resp BP Pulse Ox 97.4 F 79 16 224/112 96 10/12/19 14:42 10/12/19 14:42 10/12/19 14:42 10/12/19 14:42 10/12/19 14:42 Vital Signs Reviewed: Yes Procedures - Sedation Patient Received Moderate/Deep Sedation with Procedure: No Diagnostics - Vital Signs Vital Signs Temp Pulse Resp BP Pulse Ox 10/12/19 14:42 97.4 F 79 16 224/112 96 - Laboratory Result Diagrams: 10/12/19 17:04 10/12/19 17:04 Lab Statement: Any lab studies that have been ordered have been reviewed, and results considered in the medical decision making process. - CT CT abdomen/pelvis CT Interpretation Completed By: Radiologist Summary of CT Findings: IMPRESSION: 1. No acute intra-abdominal findings. 2. Chronic findings, as above. Dr. Kramer has reviewed this report. - EKG 19:33 Cardiac Rate: NL - at 63 bpm EKG Rhythm: Sinus Rhythm Summary of EKG Findings: EKG at 1933 shows normal sinus rhythm at a rate of [address] elevations. Abdominal Pain Male Course/Dx - Course Assessment/Plan: This pt is a 69 y/o male presenting to [facility] c/o abd pain that began this morning. Pt reports he first had diarrhea this morning and then began to experience abd pain. He described abd pain as cramping. Pt also notes nausea and vomiting. He states he is unable to keep any liquids down secondary to vomiting. Denies fever, chills, chest pain, SOB. Pt has hx of recent colitis. PSHx: kidney tumor resection. In the ED course the patient was placed in a cardiac monitor technician, IV access was obtained, IV fluids started, zofran for nausea given and Morphine for pain. Blood test results without any significant abnormality and except for WBCs of 16.6, absolute neutrophils is 15 , carbon dioxide this 21, anion gap is 14, glucose 136, lactic acid is 4.3, magnesium is 1.4, urinalysis is negative for UTI. The patient was given magnesium for the hypomagnesemia. Abdominopelvic CT impression: No acute intra- abdominal findings. The patient continues to have nausea, vomiting and pain. Therefore the patient was given morphine and Reglan. The patient was also given Toradol for the pain. I discussed my physical exam and test results with Dr. Sellers from the hospitalist services and she agrees to admit the patient to her services. The patient is hemodynamically stable, alert and oriented x 3 - Diagnoses Provider Diagnoses: Nausea vomiting and diarrhea, Diffuse abdominal pain - Provider Notifications Discussed Care Of Patient With: Dasha Sellers - hospitalist Time Discussed With Above Provider: 19:44 Instructed by Provider To: Admit As Inpatient Discharge ED - Sign-Out/Discharge Documenting (check all that apply): Patient Departure - Admit to [facility] - Discharge Plan Condition: Stable Disposition: ADMITTED TO [facility] - Billing Disposition and Condition Condition: STABLE Disposition: Admitted to [facility] - Attestation Statements Document Initiated by Sari: Yes Documenting Scribe: Meenakshi Garcia Provider For Whom Sari is Documenting (Include Credential): Hamzah Kramer MD Scribe Attestation: IMeenakshi, scribed for Hamzah Kramer MD on 10/12/19 at 2129. Scribe Documentation Reviewed: Yes Provider Attestation: The documentation as recorded by the Meenakshi wray accurately reflects the service I personally performed and the decisions made by me, Hamzah Kramer MD Status of Scribe Document: Viewed
[2019-10-12 17:11] LABS: ABS Basophils 0.1 10^3/ul (0-0.2); ABS Lymphocytes 0.7 10^3/ul (1.0-4.8); ABS Monocytes 0.8 10^3/ul (0-0.8); Hematocrit 41 % (42-52); Hemoglobin 14.7 g/dL (14.0-18.0); Lymphocyte % 4.1 %; Mean Corpuscular HGB Conc 36 g/dL (31-36); Mean Corpuscular Hemoglobin 33 pg (27-31); Mean Corpuscular Volume 92 fL (80-94); Mean Platelet Volume 6.8 fL (7.4-10.4); Platelet Count 329 10^3/uL (150-450); Red Blood Count 4.45 10^6 /uL (4.18-5.48); Red Cell Distribution Width 15 % (10-15); White Blood Count 16.6 10^3/uL (3.5-10.8)
[2019-10-12] MEDS: NS 0.9% 1000 ML** 2,000 ML IV ONE (17:19)
[2019-10-12 17:30] LABS: Troponin I 0.01 ng/mL (<0.03)
[2019-10-12 17:35] LABS: ALT 17 U/L (7-52); AST 18 U/L (13-39); Albumin 4.9 g/dL (3.2-5.2); Albumin/Globulin Ratio 1.3 (1-3); Alkaline Phosphatase 81 U/L (34-104); Anion Gap 14 mmol/L (2-11); Blood Urea Nitrogen 7 mg/dL (6-24); CO2 Carbon Dioxide 21 mmol/L (22-32); Calcium 9.8 mg/dL (8.6-10.3); Chloride 105 mmol/L (101-111); EGFR African American 104.5 (>60); EGFR Non-African American 86.4 (>60); Globulin 3.7 g/dL (2-4); Glucose 136 mg/dL (70-100); Magnesium 1.4 mg/dL (1.9-2.7); Potassium 4.1 mmol/L (3.5-5.0); Sodium 140 mmol/L (135-145); Total Protein 8.6 g/dL (6.4-8.9)
[2019-10-12] MEDS ORDERED: Iodixanol* (CONTRAST) 320 MG/ML 100 ML SDV IV ONE (17:36)
[2019-10-12] MEDS ORDERED: Magnesium Sulfate 2 GM IV* 2 GM/50 ML BAG IVPB ONE (17:41)
[2019-10-12 18:29] LABS: Urine Appearance Cloudy; Urine Bilirubin Negative (Negative); Urine Blood 1+ (Negative); Urine Color Yellow; Urine Glucose Negative (Negative); Urine Ketones Negative (Negative); Urine Nitrite Negative (Negative); Urine Protein 3+(>=500 mg/dL) (Negative); Urine Specific Gravity 1.019 (1.010-1.030); Urine Urobilinogen Negative (Negative)
[2019-10-12 18:32] LABS: Urine Bacteria Absent (Absent); Urine Red Blood Cell 3+(>10/hpf) (Absent); Urine White Blood Cell Trace(0-5/hpf) (Absent)
[2019-10-12] MEDS ORDERED: NS 0.9% 1000 ML** 1,000 ML IV ONE (19:07)
[2019-10-12] MEDS ORDERED: Ketorolac INJ* 30 MG/ML 1 ML VIAL IV PUSH ONE (19:11)
[2019-10-12] MEDS ORDERED: Metoclopramide IV* 5 MG/ML 2 ML VIAL IV SLOW PU ONE (19:17)
--- NOTE | 2019-10-12 21:55 | ADMNOTE ---
Subjective Interval History: H&P 69 yo male with hx of cyclical vomiting presented iwth sudden onset of abdominal pain, diarrhea and vomiting. He has had many admissions with similar presentation. Diagnosis at discharge is usually cyclical vomiting syndrome. Pt is a daily marijuana user. He came to the hospital concerned that he would become dehydrated given how much he has been vomiting. In the ED, his pressures have been high. He said he does not take medications at home but it appears that he was discharged on norvasc last time he was here with cyclical vomiting. His labs are significant for Lactic acidosis and his white count is elevated. But CT abdominal with IV contrast do not show evidence of any inflammation or infection. Pt is very uncomfortable at bedside. He feels discomfort in periumbilical region that he describes as "heat". He keeps tossing and turning. No headache, no neurological complaints. No chest pain, no shortness of breath. Family History: Unchanged from Admission Social History: Unchanged from Admission Past Medical History: Unchanged from Admission Review of Systems - Measurements Intake and Output: Intake and Output Last 24 Hours 10/10/19 10/11/19 10/12/19 10/13/19 06:59 06:59 06:59 06:59 Intake Total 2049 Balance 2049 Weight 192 lb Intake: IV Fluids 2049 - Review of Systems Constitutional Symptoms: Positive: Fatigue Negative: Weight Gain, Weight Loss, Weakness, Fever, Night Sweats, Unexplained Falls, Other Dermatology: Negative: Normal, Rash, Skin Lesions, Cancer, Skin Lumps, Other HEENT: Negative: Normal, Change in Hearing, Vertigo, Dental Problems, Tinnitus, Sinus Problem, Other Eyes: Negative: Normal, Change in Vision, Double Vision, Eye Pain, Glaucoma, Cataract, Contacts or Glasses, Other Thyroid: Negative: Normal, Goiter, Thyroid Nodule, Cold Intolerance, Heat Intolerance , Sweatiness, Tremor, Frequent Defecation, Constipation, Palpitations, Primary Hypothyroidism, Primary Hyperthyroidism, Weight Loss, Weight Gain, Change in Skin/Hair, Change in Menstruation, Radiation Exposure, Other Pulmonary: Negative: Normal, Cough, Sputum, Hemoptysis, Wheezing, Respiratory Distress, Shortness of Breath, COPD, Asthma, Exercise Intolerance, Home Oxygen, Other Cardiology: Negative: Normal, Chest Pain, Shortness of Breath, Palpitations, Swelling of Ankles, Peripheral Vascular Dis, Edema, Faintness, Syncope, Claudication, Proximal NocturnalDyspnea, Orthopnoea, Other Gastroenterology: Positive: Abdominal Pain, Nausea, Vomiting, Diarrhea Negative: Normal, Anorexia, Indigestion, Difficulty Swallowing, Heartburn, Constipation, Blood in Stools, Change in Bowel Habits, Haematemesis, Melena, Other Genitourinary - Male: Negative: Prostatism, Erectile Dysfunction, Family Hx of Prostate Cancer, Other Musculoskeletal: Negative: Joint Pain, Joint Stiffness, Arthritis, Osteoporosis, Low Back Pain , Sciatica, Joint Deformities, Kyphoscoliosis, Other Endocrinology: Negative: Normal, Thyroid Problems, Adrenal Problems, Gonadal Problems, Family Hx Endocrine Disorders, Obesity, Diabetes Mellitus, Hyperglycemia, Hx Hypoglycemia, Diabetic Foot Ulcers, Calluses, Hirsutism, Menstrual Abnormalities , Polydipsia, Polyuria, Gonadal Problems, Gynecomastia, Pituitary disease, Other Hematologic/Lymphatic: Negative: Anemia, Easy Bruising, Hx Leukemia, Hx Lymphoma, Use of Anticoagulant, Use of Antiplatelet Drugs, Other Neurology: Negative: Normal, Headache, Migraines, Change in Vision, Diplopia, Dizziness , Change in Balancing, Change in Coordination, Change in Memory, Change in Speech, Change in Sphincter Function, Change in Walking, Numbness\\Paresthesiae, Unexplained Weakness, Hx of Stroke\\TIA, Hx of Seizures, Other Psychiatry: Negative: Normal, Depression, Anxiety, Depressed Mood, Anhedonia, Sexual Dysfunction, Weight Change, Guilt Feelings, Tearfulness, Unusual Fatigue, Unusual Anxiety, Suicidal Ideation, Hypomania, Eating Disorders, Other Allergic/Immunologic: Negative: Hx Anaphylaxis, Hx Angioedema, Hx Environmental, Hx Seasonal, Asthma, Hx HIV, Immunocompromise, Swollen Glands LymphNodes, Other Objective Active Medications: Famotidine (Pepcid Tab*) 20 mg PO DAILY [facility] Heparin Sodium (Porcine) (Heparin Vial(*)) 5,000 units SUBCUT Q8HR [facility] Sodium Chloride (Ns 0.9% 1000 Ml) 1,000 mls @ 100 mls/hr IV PER RATE [facility] Ondansetron HCl (Zofran Inj*) 4 mg IV Q4H PRN PRN Reason: NAUSEA/VOMITING Vital Signs - 8 hr 10/12/19 10/12/19 10/12/19 14:42 16:41 16:43 Temperature 97.4 F Pulse Rate 79 76 Respiratory 16 Rate Blood Pressure 224/112 199/102 (mmHg) O2 Sat by Pulse 96 99 Oximetry 10/12/19 10/12/19 10/12/19 17:18 17:21 17:29 Temperature Pulse Rate 73 72 Respiratory 23 2 17 Rate Blood Pressure 173/101 (mmHg) O2 Sat by Pulse 97 95 Oximetry 10/12/19 10/12/19 10/12/19 18:00 19:37 19:39 Temperature Pulse Rate 79 73 73 Respiratory 13 11 19 Rate Blood Pressure 199/107 (mmHg) O2 Sat by Pulse 97 98 97 Oximetry 10/12/19 10/12/19 10/12/19 19:43 20:00 20:13 Temperature Pulse Rate 74 72 26 Respiratory 16 24 Rate Blood Pressure 197/106 190/105 (mmHg) O2 Sat by Pulse 100 98 Oximetry 10/12/19 20:42 Temperature Pulse Rate 75 Respiratory 20 Rate Blood Pressure 183/102 (mmHg) O2 Sat by Pulse 98 Oximetry Appearance: in some distress from his abdominal pain. Eyes: No Scleral Icterus, PERRLA, - - cataracts Ears/Nose/Mouth/Throat: NL Teeth, Lips, Gums, Mucous Membranes Moist Neck: NL Appearance and Movements; NL JVP, Trachea Midline Respiratory: Symmetrical Chest Expansion and Respiratory Effort, Clear to Auscultation, Clear to Percussion Cardiovascular: NL Sounds; No Murmurs; No JVD, No Edema Abdominal: NL Sounds; No Tenderness; No Distention, No Hepatosplenomegaly, - - his abdominal "heat" does not vary on palpation Lymphatic: No Cervical Adenopathy, No Inguinal Adenopathy Skin: No Rash or Ulcers, No Nodules or Sclerosis Neurological: Alert and Oriented x 3, NL Sensation, NL Muscle Strength and Tone Result Diagrams: 10/12/19 17:04 10/12/19 17:04 Assess/Plan/Problems-Billing Assessment: - Patient Problems (1) Abdominal pain Current Visit: No Status: Acute Code(s): R10.9 - UNSPECIFIED ABDOMINAL PAIN SNOMED Code(s): 82396161 Comment: multiple admissions with this abdominal pain of unclear etiology but likely related to his chronic use of marijuana morphine prn CT abd was normal (2) Cyclic vomiting syndrome Current Visit: No Status: Acute Comment: -He and his agree this episode is just like the others. Sudden onset abdominal pain, NV and diarrhea which resolved within 24 hrs. He has tried stopping marijuana only for a few days in the past but doesnt feel that helped. He was not receptive any further attempts to reduce his marijuana use. IV fluids (NSS), MS IV PN, ondansetron IV PRN. (3) DVT prophylaxis Current Visit: No Status: Acute Code(s): TUG1436 - SNOMED Code(s): 449330712 Comment: SQ heparin. (4) Dehydration Current Visit: No Status: Acute Code(s): E86.0 - DEHYDRATION SNOMED Code(s ): 43838413 Comment: LA evelated - Continue IVF. (5) Full code status Current Visit: No Status: Acute Code(s): Z78.9 - OTHER SPECIFIED HEALTH STATUS SNOMED Code(s): 876403614 (6) HTN (hypertension) Current Visit: No Status: Acute Code(s): I10 - ESSENTIAL (PRIMARY) HYPERTENSION SNOMED Code(s): 89357796 Comment: - Likely secondary to pain as his BP is now normal. - Will continue to monitor, but no medications at this time.
[2019-10-12] MEDS: Heparin VIAL(*) 5000 UNITS/ML VIAL (FIVE THOUSAND) SUBCUT SCH (22:27)
[2019-10-12] MEDS: Morphine INJ* 2 MG/ML 1 ML SYRINGE (TWO MG - NEW SYRINGE VERSION) IV PRN (22:28)
[2019-10-12] MEDS: Ondansetron INJ* 2 MG/ML VIAL IV PRN (22:28)
[2019-10-12] MEDS: NS 0.9% 1000 ML** 1,000 ML IV SCH (22:29)
[2019-10-13 01:53] LABS: Urine Benzodiazepine Screen None Detected (None Detect); Urine Opiates Screen Presumptive Positive (None Detect)
[2019-10-13 05:27] LABS: Activated Partial Thrombo Time 31.8 seconds (26.0-38.0); INR 1.14 (0.82-1.09)
[2019-10-13] MEDS: Heparin VIAL(*) 5000 UNITS/ML VIAL (FIVE THOUSAND) SUBCUT SCH ×2 (05:32→13:17)
[2019-10-13 05:38] LABS: Albumin 3.9 g/dL (3.2-5.2); Albumin/Globulin Ratio 1.3 (1-3); BUN/Creatinine Ratio 11.4 (8-20); Calcium 8.2 mg/dL (8.6-10.3); EGFR African American 118.4 (>60); EGFR Non-African American 97.8 (>60); Potassium 3.7 mmol/L (3.5-5.0); Total Bilirubin 0.7 mg/dL (0.2-1.0); Total Protein 6.9 g/dL (6.4-8.9)
[2019-10-13] MEDS: Morphine INJ* 2 MG/ML 1 ML SYRINGE (TWO MG - NEW SYRINGE VERSION) IV PRN (06:38)
[2019-10-13] MEDS: Ondansetron INJ* 2 MG/ML VIAL IV PRN (06:38)
[2019-10-13 08:28] LABS: Magnesium 1.9 mg/dL (1.9-2.7)
[2019-10-13] MEDS ORDERED: Famotidine TAB* 20 MG PO SCH (09:00)
[2019-10-13] MEDS: NS 0.9% 1000 ML** 1,000 ML IV SCH (09:24)
[2019-10-13 11:50] VITALS: BP 145/81
--- NOTE | 2019-10-13 21:44 | DS ---
AMENDED REPORT NOW INCLUDES ADDENDUM FOR DISPOSITION DISCHARGE SUMMARY: DATE OF ADMISSION: 10/12/19. DATE OF DISCHARGE: 10/13/19. PROVIDER: YUSUF Montano. ATTENDING PROVIDER: Dasha Sellers MD * (DICTATED BY YUSUF MONTANO) PRIMARY DIAGNOSIS: Vomiting and diarrhea, likely viral gastroenteritis, related to cyclic vomiting syndrome and poor diet. SECONDARY DIAGNOSES: 1. Cyclic vomiting syndrome. 2. Benign prostatic hypertrophy. 3. Hyperlipidemia. 4. Renal carcinoma, status post resection. PERTINENT LABORATORIES: Initial lactic acid 4.3, on repeat 1.0. Urine positive for cannabinoids and opiates. PERTINENT STUDIES: Abdomen and pelvis CT. Impression: No acute intraabdominal findings. Chronic findings as described in full report. HISTORY OF PRESENT ILLNESS/HOSPITAL COURSE: Red Crews is a 69-year-old male with a past medical history of cyclic vomiting syndrome, renal carcinoma, status post nephrectomy, presented to emergency department on 10/12/19 due to vomiting and diarrhea. Please see admitting history and physical written by Dr. Sellers for further details. The patient had a benign CT of abdomen and pelvis and he did have a mild leukocytosis, though there is no clear source of infection. He possibly has a viral gastroenteritis as he did have about 24 hours of diarrhea associated with his vomiting, though he does have vomiting chronically at baseline and continues to smoke marijuana despite being counseled against this multiple times. On day of discharge, the patient has been feeling well. He had not vomited and he had no bowel movement and felt ready for discharge. He was afebrile during the entirety of his hospital stay. He is feeling back to his normal self. PHYSICAL EXAMINATION: General: Well-developed, well-nourished black male, lying in hospital bed, appearing comfortable, in no acute distress. ENT: Mucous membranes are moist. Lungs: Clear to auscultation throughout. Cardio: Regular rate and rhythm without murmurs, rubs, or gallops. Abdomen: Normoactive bowel sounds, x4 quadrants. Abdomen is soft, nontender, nondistended. Extremities: No clubbing, cyanosis, or edema. Neuro: Alert and oriented x3. DISCHARGE PLAN: Diet: Regular, unrestricted diet. Activity: The patient may return to normal activity as tolerated. The patient was advised to return to the emergency department if he experience any voting to the point of not being able to keep down fluids, bloody bowel movement, fever, chills, severe abdominal pain. He was advised to follow up with his primary care provider within 1 week. We discussed that the use of marijuana does contribute to his vomiting. DISCHARGE MEDICATIONS: Continued home medications: 1. Famotidine 20 mg p.o. daily p.r.n. reflux. 2. Flomax 0.4 mg p.o. daily. CONDITION ON DISCHARGE: Stable. TIME SPENT: Approximately 40 minutes were spent on this discharge, approximately half that time was spent at bedside evaluating the patient, discussing the plan of care. YUSUF MONTANO ADDENDUM: DISPOSITION: Home. YUSUF MONTANO [id number]/CPS #: [id number]/CPS #: [id number] [id number]
== END 2019-10-14 03:42 | disposition home or self-care (01) ==
LOC: ED 14:39 → MED 20:31 → UNDODISOB 10-13 15:00
PROVIDERS: ADMIT Student in an Organized Health Care Education/Training Program; ATTEND Student in an Organized Health Care Education/Training Program
DX: G43.A0 Cyclical vomiting, in migraine, not intractable (principal); R19.7 Diarrhea, unspecified; N40.0 Benign prostatic hyperplasia without lower urinary tract symptoms; E78.5 Hyperlipidemia, unspecified; Z85.53 Personal history of malignant neoplasm of renal pelvis; Z90.5 Acquired absence of kidney; Z79.899 Other long term (current) drug therapy; E78.00 Pure hypercholesterolemia, unspecified; Z87.891 Personal history of nicotine dependence
CPT/HCPCS: 36415; 74177; 80053; 80307; 80320; 80329; 81003; 81015; 83605; 83690; 83735; 84484; 85025; 85610; 85730; 86140; 87086; 93005; 96361; 96365; 96372; 96374; 96375; 96376; 99282; 99284; A9270-GY; G0378; G0480; J0780; J1630; J1644; J1885; J2270; J2405; J2765; J3475; Q9967

== ENCOUNTER 2019-10-13 23:04 | Emergency (ER) | payer MEDICARE ==
[2019-10-13] MEDS ORDERED: NS 0.9% 1000 ML** 1,000 ML IV ONE (23:46)
[2019-10-13] MEDS ORDERED: Haloperidol INJ IV/IM* 5 MG/ML AMP IV SLOW PU ONE (23:46)
--- NOTE | 2019-10-13 23:50 | ED ---
Abdominal Pain/Male - HPI Summary HPI Summary: Patient is a 69 y/o M w/ Hx of cyclical vomiting who presents to [facility] with complaints of diffuse abdominal pain, N/V, and chills. The patient had been seen in [facility] 10/12/19 and was admitted. He was discharged 10/13/19. Upon time of discharge, the patient states that he felt fine. When he returned home, the patient had return of his Sx of abdominal pain, N/V and chills. On triage, pain is rated 10/10, nothing is noted to aggravate/alleviate Sx. Home medications and allergies are reviewed. - History of Current Complaint Chief Complaint: EDAbdPain Stated Complaint: ABD PAIN PER PT Time Seen by Provider: 10/13/19 23:28 Hx Obtained From: Patient Onset/Duration: Lasting Hours, Still Present Timing: Constant, Lasting Hours Severity Currently: Severe Pain Intensity: 10 Pain Scale Used: 0-10 Numeric Location: Diffuse Aggravating Factor(s): Nothing Alleviating Factor(s): Nothing Associated Signs And Symptoms: Positive: Nausea, Vomiting, Other - chills - Allergies/Home Medications Allergies/Adverse Reactions: Allergies Allergy/AdvReac Type Severity Reaction Status Date / Time No Known Allergies Allergy Verified 10/13/19 23:12 PMH/Surg Hx/FS Hx/Imm Hx Endocrine/Hematology History: Denies: Hx Anticoagulant Therapy, Hx Blood Disorders, Hx Diabetes, Hx Thyroid Disease, Hx Anemia, Hx Unexplained Bleeding Cardiovascular History: Reports: Hx Hypercholesterolemia, Other Cardiovascular Problems/Disorders - Hyperlipidemia Denies: Hx Aneurysm, Hx Hypertension, Hx Peripheral Vascular Disease GI History: Reports: Other GI Disorders - gastritis, cyclical vomiting syndrome History: Reports: Hx Benign Prostatic Hyperplasia, Other Problems/ Disorders - Kidney CA, Kidney tumor resection Denies: Hx Renal Disease Musculoskeletal History: Denies: Hx Arthritis, Hx Osteoporosis Sensory History: Denies: Hx Cataracts, Hx Contacts or Glasses, Hx Glaucoma, Hx Hearing Aid Opthamlomology History: Denies: Hx Cataracts, Hx Contacts or Glasses, Hx Glaucoma Neurological History: Denies: Hx Headaches, Hx Seizures, Hx Transient Ischemic Attacks (TIA) Psychiatric History: Denies: Hx Anxiety, Hx Depression - Cancer History Cancer Type, Location and Year: Kidney CA - Surgical History Surgery Procedure, Year, and Place: Kidney tumor resection, 2017 Infectious Disease History: No Infectious Disease History: Denies: History Other Infectious Disease, Traveled Outside the [place] in Last 30 Days - Family History Known Family History: Negative: Cardiac Disease, Hypertension - Social History Alcohol Use: None Hx Substance Use: Yes Substance Use Type: Reports: None Substance Use Comment - Amount & Last Used: "Daily" Hx Tobacco Use: Yes - not currently Smoking Status (MU): Former Smoker Review of Systems Positive: Chills Positive: Abdominal Pain, Vomiting, Nausea All Other Systems Reviewed And Are Negative: Yes Physical Exam - Summary Physical Exam Summary: Appearance: Well-appearing, Well-nourished, appears uncomfortable Skin: Warm, dry, no obvious rash Eyes: sclera anicteric, no conjunctival pallor ENT: mucous membranes moist, pharynx appears normal Neck: Supple, nontender Respiratory: Clear to auscultation, no signs of respiratory distress Cardiovascular: Normal S1, S2. No murmurs. Normal distal pulses in tibial and radial bilaterally. Abdomen: Soft, nontender, normal active bowel sounds present Musculoskeletal: Normal, Strength/ROM Intact Neurological: A&Ox3, awake and alert, mentation is normal, speech is fluent and appropriate Psychiatric: affect is normal, does not appear anxious or depressed Triage Information Reviewed: Yes Vital Signs On Initial Exam: Initial Vitals Temp Pulse Resp BP Pulse Ox 97.0 F 65 20 198/109 99 10/13/19 23:05 10/13/19 23:05 10/13/19 23:05 10/13/19 23:05 10/13/19 23:05 Vital Signs Reviewed: Yes Procedures - Sedation Patient Received Moderate/Deep Sedation with Procedure: No Diagnostics - Vital Signs Vital Signs Temp Pulse Resp BP Pulse Ox 10/13/19 23:05 97.0 F 65 20 198/109 99 - Laboratory Result Diagrams: 10/14/19 00:04 10/14/19 00:04 Lab Statement: Any lab studies that have been ordered have been reviewed, and results considered in the medical decision making process. Abdominal Pain Male Course/Dx - Course Course Of Treatment: Patient is a 69 y/o M w/ Hx of cyclical vomiting who presents to [facility] with complaints of diffuse abdominal pain, N/V, and chills. The patient had been seen in [facility] 10/12/19 and was admitted. He was discharged 10/13/19. Upon time of discharge, the patient states that he felt fine. When he returned home, the patient had return of his Sx of abdominal pain, N/V and chills. On physical exam, patient appears uncomfortable. Bloodwork was obtained and showed WBC 15.9, Hgb 13.8, Hct 39, MCH 39, MPV 6.8, absolute neuts 13.7, carbon dioxide 21, glucose 141. Tox screen was negative. During ED course, patient received fluids, Haldol 5 mg IV, morphine 4 mg IV, and compazine 10 mg IV. Patient was discharged to home with haldol prescription and PCP follow up. - Diagnoses Provider Diagnoses: Cyclical vomiting Discharge ED - Sign-Out/Discharge Documenting (check all that apply): Patient Departure - discharge - Discharge Plan Condition: Improved Disposition: HOME Prescriptions: Haloperidol TAB* [Haldol TAB*] 2 mg PO Q6H PRN #10 tab PRN Reason: Nausea Patient Education Materials: Cyclic Vomiting Syndrome (ED) Referrals: Ashkan King MD [Primary Care Provider] - - Billing Disposition and Condition Condition: IMPROVED Disposition: Home - Attestation Statements Document Initiated by Sari: Yes Documenting Gabrielleibe: CRISTOFER TIDWELL Provider For Whom Sari is Documenting (Include Credential): JAS MORAN MD Scribe Attestation: CRISTOFER Ndiaye, gabrielleibed for JAS MORAN MD on 10/14/19 at 1911. Scribe Documentation Reviewed: Yes Provider Attestation: The documentation as recorded by the CRISTOFER wray accurately reflects the service I personally performed and the decisions made by me, JAS MORAN MD Status of Scribe Document: Viewed
[2019-10-14 00:09] LABS: ABS Basophils 0.1 10^3/ul (0-0.2); ABS Lymphocytes 1.3 10^3/ul (1.0-4.8); ABS Monocytes 0.8 10^3/ul (0-0.8); ABS Neutrophils 13.7 10^3/ul (1.5-7.7); Eosinophil % 0.1 %; Hematocrit 39 % (42-52); Hemoglobin 13.8 g/dL (14.0-18.0); Lymphocyte % 8.2 %; Mean Corpuscular HGB Conc 35 g/dL (31-36); Mean Corpuscular Hemoglobin 32 pg (27-31); Mean Corpuscular Volume 93 fL (80-94); Mean Platelet Volume 6.8 fL (7.4-10.4); Platelet Count 300 10^3/uL (150-450); Red Blood Count 4.25 10^6 /uL (4.18-5.48); Red Cell Distribution Width 15 % (10-15); White Blood Count 15.9 10^3/uL (3.5-10.8)
[2019-10-14 00:26] LABS: ALT 18 U/L (7-52); Albumin 4.4 g/dL (3.2-5.2); Albumin/Globulin Ratio 1.4 (1-3); Alkaline Phosphatase 78 U/L (34-104); BUN/Creatinine Ratio 13.1 (8-20); Blood Urea Nitrogen 11 mg/dL (6-24); CO2 Carbon Dioxide 21 mmol/L (22-32); Calcium 9.2 mg/dL (8.6-10.3); Chloride 105 mmol/L (101-111); EGFR African American 110.3 (>60); EGFR Non-African American 91.1 (>60); Globulin 3.2 g/dL (2-4); Glucose 141 mg/dL (70-100); Sodium 135 mmol/L (135-145); Total Protein 7.6 g/dL (6.4-8.9)
[2019-10-14 00:40] LABS: Acetaminophen < 15 mcg/mL; Alcohol < 10 mg/dL (<10); Salicylate < 2.50 mg/dL (<30)
[2019-10-14 01:12] LABS: Anion Gap 9 mmol/L (2-11)
[2019-10-14] MEDS ORDERED: Morphine 4 MG/ML VIAL (1 ml) 4 MG/ML VIAL IV ONE (02:36)
[2019-10-14] MEDS ORDERED: PROCHLORPERAZINE INJ 5 MG/ML 2 ML VIAL IV PRN (02:36)
[2019-10-14 03:45] VITALS: BP 0/0
== END 2019-10-14 03:42 | disposition home or self-care (01) ==
LOC: ED 23:04
DX: R11.15 Cyclical vomiting syndrome unrelated to migraine (principal); E78.00 Pure hypercholesterolemia, unspecified; E78.5 Hyperlipidemia, unspecified; N40.0 Benign prostatic hyperplasia without lower urinary tract symptoms; Z87.891 Personal history of nicotine dependence; Z85.528 Personal history of other malignant neoplasm of kidney
CPT/HCPCS: 36415; 80053; 80320; 80329; 83605; 85025; 96361; 96374; 96375; 99282; G0480; J0780; J1630; J2270

== ENCOUNTER 2019-10-17 08:45 | Emergency (ER) | payer MEDICARE ==
--- NOTE | 2019-10-17 08:53 | ED ---
Abdominal Pain/Male - HPI Summary HPI Summary: Patient is a 69-year-old male who presents emergency department for vomiting and epigastric abdominal pain that started acutely this morning. Patient has been seen in the ER numerous times in the last several months for vomiting and epigastric pain. He was admitted 10/12/19 for intractable vomiting. He was discharged following day and came back to the ER for ongoing symptoms. Patient states symptoms finally improved until this morning. Patient states symptoms today same as his previous symptoms. He denies associated symptoms of headache , chest pain or shortness of breath, urinary symptoms, diarrhea. Symptoms are moderate in severity. No current modifying factors. Pt. has negative abd. CT scan 10/12. He has seen GI in the past and has had endoscopy. 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 notes that pt. continues to smoke marijuana on a daily basis. - History of Current Complaint Chief Complaint: EDAbdPain Stated Complaint: ABD PAIN PER PT Time Seen by Provider: 10/17/19 08:52 Hx Obtained From: Patient Pain Intensity: 10 - Allergies/Home Medications Allergies/Adverse Reactions: Allergies Allergy/AdvReac Type Severity Reaction Status Date / Time No Known Allergies Allergy Verified 10/17/19 08:50 PMH/Surg Hx/FS Hx/Imm Hx Previously Healthy: Yes Endocrine/Hematology History: Denies: Hx Anticoagulant Therapy, Hx Blood Disorders, Hx Diabetes, Hx Thyroid Disease, Hx Anemia, Hx Unexplained Bleeding Cardiovascular History: Reports: Hx Hypercholesterolemia, Other Cardiovascular Problems/Disorders - Hyperlipidemia Denies: Hx Aneurysm, Hx Hypertension, Hx Peripheral Vascular Disease GI History: Reports: Other GI Disorders - gastritis, cyclical vomiting syndrome History: Reports: Hx Benign Prostatic Hyperplasia, Other Problems/ Disorders - Kidney CA, Kidney tumor resection Denies: Hx Renal Disease Musculoskeletal History: Denies: Hx Arthritis, Hx Osteoporosis Sensory History: Denies: Hx Cataracts, Hx Contacts or Glasses, Hx Glaucoma, Hx Hearing Aid Opthamlomology History: Denies: Hx Cataracts, Hx Contacts or Glasses, Hx Glaucoma Neurological History: Denies: Hx Headaches, Hx Seizures, Hx Transient Ischemic Attacks (TIA) Psychiatric History: Denies: Hx Anxiety, Hx Depression - Cancer History Cancer Type, Location and Year: Kidney CA - Surgical History Surgery Procedure, Year, and Place: Kidney tumor resection, 2017 Infectious Disease History: No Infectious Disease History: Denies: History Other Infectious Disease, Traveled Outside the [place] in Last 30 Days - Family History Known Family History: Positive: Non-Contributory Negative: Cardiac Disease, Hypertension - Social History Occupation: Retired Lives: With Family Alcohol Use: None Hx Substance Use: Yes Substance Use Type: Reports: None Substance Use Comment - Amount & Last Used: "Daily" Hx Tobacco Use: Yes - not currently Smoking Status (MU): Former Smoker Review of Systems Constitutional: Negative Negative: Fever ENT: Negative Cardiovascular: Negative Negative: Palpitations, Chest Pain Respiratory: Negative Negative: Shortness Of Breath, Cough Positive: Abdominal Pain, Vomiting, Nausea. Negative: Diarrhea Genitourinary: Negative Negative: dysuria Musculoskeletal: Negative Neurological: Negative All Other Systems Reviewed And Are Negative: Yes Physical Exam Triage Information Reviewed: Yes Vital Signs On Initial Exam: Initial Vitals Temp Pulse Resp BP Pulse Ox 97.4 F 65 16 205/118 100 10/17/19 08:48 10/17/19 08:48 10/17/19 08:48 10/17/19 08:48 10/17/19 08:48 Vital Signs Reviewed: Yes Appearance: Positive: Pain Distress - Pt. lying in bed holding abdomen. Moaning in pain. SO present. Skin: Positive: Warm, Dry Head/Face: Positive: Normal Head/Face Inspection Eyes: Positive: Normal, EOMI, SEVERIANO Neck: Positive: Supple Respiratory/Lung Sounds: Positive: Clear to Auscultation, Breath Sounds Present Cardiovascular: Positive: Normal, RRR Abdomen Description: Positive: Other: - ABd. is soft with epigastric tenderness on palpation. Neurological: Positive: Normal, CN Intact II-III Psychiatric: Positive: Affect/Mood Appropriate Procedures - Sedation Patient Received Moderate/Deep Sedation with Procedure: No Diagnostics - Vital Signs Vital Signs Temp Pulse Resp BP Pulse Ox 10/17/19 08:48 97.4 F 65 16 205/118 100 - Laboratory Result Diagrams: 10/17/19 10:24 10/17/19 13:20 Lab Statement: Any lab studies that have been ordered have been reviewed, and results considered in the medical decision making process. Abdominal Pain Male Course/Dx - Course Course Of Treatment: Pt. presenting with ongoing N/V and epigastric pain. pt. notes sxs are similar to prior episodes. is concerned he has had 3 visits in the past 2 weeks. Afebrile. BP elevated on automatic. BP recheck manually and improved. Difficulty obtaining labs and iv access. Pt. given IM pain medication and ODT zofran. IV eventually obtained. ECG done at 0934 shows a sinus bradycardia of 54 bpm, left axis deviation, no STEMI, similar to prior tracing. CBC unremarkable. CMP is unremarkable other than minimally low mag of 1.8. CXR negative for acute findings. Pt. received a few doses of pain medication and is sleeping comfortably. Pt. has had no vomiting in the ED and is tolerating water .Pt. and concerned with going home and that his sxs will start again. Pt. states he has tried numerous antiemetics and nothing has worked. Pt. continues to smoke THC. Call placed to pt.'s PCP without return. Pt. was examined by Dr. Barrow who was able to get pt. an apt. with GI for tomorrow at 1400. Pt. comfortable with dc. Pt. notes he has antiemetics at home and does not want any rx. Will return sooner if sxs change or worsen. - Diagnoses Differential Diagnosis/HQI/PQRI: AMI, Constipation, Diverticulitis, Ischemic Bowel, Pancreatitis, Peptic Ulcer Disease, Renal Colic Provider Diagnoses: Abdominal pain, Nausea & vomiting Discharge ED - Sign-Out/Discharge Documenting (check all that apply): Patient Departure - Discharge Plan Condition: Improved Disposition: HOME Patient Education Materials: Acute Nausea and Vomiting (ED) [place]: [facility] [place] [facility] [place]] Galdino Tubbs MD [Medical Doctor] - (Tomorrow, 10/17/19 at 2pm - please arrive at 1:30pm for paperwork - you will be evaluated by the nurse Jody escamilla ) Ashkan King MD [Primary Care Provider] - Additional Instructions: You have an appointment scheduled for tomorrow, 10/17/19 at 2pm wit GI specialist - please arrive at 1:30pm for paperwork - you will be evaluated by the nurse Jody escamilla Bring this paperwork with you as a referral You may contact the physician referral center for assistance with any further appointments Today - eat and drink clear sips - For the first 6 hours, eat and drink clears ( water, chucky tico, soup broth, jello, popsicles, Gatorade. - Billing Disposition and Condition Condition: IMPROVED Disposition: Home - Attestation Statements Provider Attestation: As by PA to talk with pt and SO. Pt is a 69 yo male who has struggled with cyclic vomiting for several years. states he rapidly lapses couple times here when he ends up in the emergency department. Patient does smoke marijuana regularly. Patient states when he's tried to stop it does not seem to make a difference in his symptoms. Patient was here on 10/12 with vomiting. He was admitted to the hospital. Patient was discharged on the and the return to the ED later that day. When he returned he was treated with Haldol that seemed to improve and he was discharged home with a prescription. Patient came back today because his symptoms again returned. Patient reports severe abdominal pain associated with the nausea vomiting retching. Patient states he does have Zofran at home but did not either. Patient states he did take the Haldol once or twice with little effect. Patient in the emergency department has been treated with antiemetics and fluids and Zofran. Patient states he is feeling better but has apprehension about going home. Patient to drink some water here and that has stayed down. Patient states his PCP would like to send him to GI in [place]. Patient's states is too hard for him travel and so has not been able to make an appointment. Patient tells me he has not seen any local GI in several years. Patient was put on an acid lead mason tender previously but stopped taking it because he was feeling better. After discussing at length with the patient agree to let me try to make him a follow-up appointment with GI. Patient states he would like to go home although his spouse was reluctant if he didn't have a plan. I was given permission to work on scheduling a follow-up appointment. Through the physician referral Center was able scheduled outpatient appointment for 2 PM on 10/18/[address] Tubbs's nurse practitioner on [facility]. Patient and his other express appreciation. Patient requesting to go home. Patient states he has enough antiemetics at home and declined any additional prescriptions. Did review patient's laboratory studies and urine and all reassuring. Patient comfortable. Nipple discharge. I did update the physician's branch assistant regarding the plan.
[2019-10-17] MEDS ORDERED: NS 0.9% 1000 ML** 1,000 ML IV ONE (09:05)
[2019-10-17] MEDS ORDERED: Morphine 4 MG/ML VIAL (1 ml) 4 MG/ML VIAL IV ONE (09:05)
[2019-10-17] MEDS ORDERED: PROCHLORPERAZINE INJ 5 MG/ML 2 ML VIAL IV ONE (09:05)
[2019-10-17] MEDS ORDERED: Ondansetron ODT TAB* 4 MG PO ONE (09:25)
[2019-10-17] MEDS ORDERED: Morphine 10 MG/ML VIAL (1 ml) IM ONE (09:25)
[2019-10-17 10:48] LABS: ABS Basophils 0.1 10^3/ul (0-0.2); ABS Lymphocytes 1.1 10^3/ul (1.0-4.8); ABS Monocytes 0.6 10^3/ul (0-0.8); ABS Neutrophils 8.2 10^3/ul (1.5-7.7); Eosinophil % 0.1 %; Hematocrit 40 % (42-52); Hemoglobin 14.2 g/dL (14.0-18.0); Lymphocyte % 11.2 %; Mean Corpuscular HGB Conc 36 g/dL (31-36); Mean Corpuscular Hemoglobin 33 pg (27-31); Mean Corpuscular Volume 92 fL (80-94); Mean Platelet Volume 7.2 fL (7.4-10.4); Platelet Count 332 10^3/uL (150-450); Red Blood Count 4.35 10^6 /uL (4.18-5.48); Red Cell Distribution Width 15 % (10-15)
[2019-10-17 11:07] LABS: ALT 20 U/L (7-52); Albumin 4.4 g/dL (3.2-5.2); Albumin/Globulin Ratio 1.3 (1-3); Alkaline Phosphatase 74 U/L (34-104); BUN/Creatinine Ratio 11.1 (8-20); Blood Urea Nitrogen 11 mg/dL (6-24); C Reactive Protein 2.04 mg/L (<8.01); CO2 Carbon Dioxide 26 mmol/L (22-32); Calcium 9.3 mg/dL (8.6-10.3); Chloride 104 mmol/L (101-111); EGFR African American 91.2 (>60); EGFR Non-African American 75.4 (>60); Globulin 3.5 g/dL (2-4); Glucose 124 mg/dL (70-100); Sodium 139 mmol/L (135-145); Total Protein 7.9 g/dL (6.4-8.9); Troponin I 0.01 ng/mL (<0.03)
[2019-10-17 11:10] LABS: Urine Appearance Clear; Urine Bilirubin Negative (Negative); Urine Blood Negative (Negative); Urine Color Yellow; Urine Glucose Negative (Negative); Urine Ketones Negative (Negative); Urine Nitrite Negative (Negative); Urine Protein 2+(100 mg/dL) (Negative); Urine Specific Gravity 1.019 (1.010-1.030); Urine Urobilinogen Negative (Negative)
[2019-10-17 11:14] LABS: Urine Bacteria Absent (Absent); Urine Red Blood Cell 2+(6-10/hpf) (Absent); Urine White Blood Cell Trace(0-5/hpf) (Absent)
[2019-10-17 12:04] LABS: Anion Gap 9 mmol/L (2-11)
[2019-10-17 14:17] LABS: Magnesium 1.8 mg/dL (1.9-2.7)
[2019-10-17] MEDS ORDERED: Magnesium Oxide TAB* 400 MG PO ONE (14:22)
[2019-10-17 14:23] VITALS: BP 187/87
[2019-10-17 14:47] LABS: Albumin 4.4 g/dL (3.2-5.2); Total Bilirubin 0.7 mg/dL (0.2-1.0)
[2019-10-17 14:53] LABS: Albumin/Globulin Ratio 1.3 (1-3); BUN/Creatinine Ratio 11.5 (8-20); EGFR African American 105.9 (>60); EGFR Non-African American 87.5 (>60); Globulin 3.3 g/dL (2-4); Total Protein 7.7 g/dL (6.4-8.9)
== END 2019-10-17 15:23 | disposition home or self-care (01) ==
LOC: ED 08:45
DX: R10.13 Epigastric pain (principal); R11.2 Nausea with vomiting, unspecified; R00.1 Bradycardia, unspecified; I51.7 Cardiomegaly; Z87.891 Personal history of nicotine dependence
CPT/HCPCS: 36415; 71045; 80053; 81003; 81015; 83605; 83690; 83735; 84484; 85025; 86140; 87086; 93005; 96361; 96374; 96375; 96376; 99284; A9270-GY; J0780; J2270

== ENCOUNTER 2019-11-07 03:13 | Observation (INO) | payer OTHER ==
--- OUTSIDE RECORDS SUMMARY | 2019-11-07 03:34 | XMS REPORT | Continuity of Care Document ---
:1950 External Reference #:[id number] Demographics Address [address] [place] [address] Home Phone [phone] Work Phone [phone] Preferred Language en Marital Status Not or Catholic Affiliation Unknown Race Black / Ethnic Group Not or Author Name Jody Borden NP (transmitted by agent of provider Clotilde Avendano) Address [address] [place] [address] Care Team Providers Name Role Phone Ashkan King MD - Internal Care Team Information Lead Engineer [phone] Medicine Problems Active Problems Provider Date Cyclical vomiting syndrome Nando Holliday M.D. Onset: 04/24/2018 Benign prostatic hypertrophy without Nando Holliday M.D. Onset: 04/24/2018 outflow obstruction Cannabis abuse Nando Holliday M.D. Onset: 04/24/2018 Hypocalcemia Dillan Galloway MD Onset: 04/25/2018 Social History Type Date Description Comments Sex Unknown Tobacco Use Start: Unknown End: Unknown Former Cigarette Smoker Smoking Status Reviewed: 10/18/19 Former Cigarette Smoker ETOH Use Denies alcohol use Exercise Type/Frequency Exercises regularly Allergies, Adverse Reactions, Alerts Description No Known Drug Allergies Medications Active Medications SIG Qnty Indications Ordering Provider Date Omeprazole 1 by mouth every 90caps Jody Borden NP 10/18/2019 20mg day 1/[address] before breakfast in am. Tamsulosin HCL 1 by mouth every Stevanodior, 0.4mg day MD Ashkan Capsules Immunizations Description No Information Available Vital Signs Date Vital Result Comment 10/18/2019 1:54pm Height 72 inches 6'0" Weight 203.00 lb Heart Rate 74 /min BP Systolic 107 mmHg BP Diastolic 57 mmHg O2 % BldC Oximetry 100 % BMI (Body Mass Index) 27.5 kg/m2 09/19/2018 3:07pm Height 72 inches 6'0" Weight 200.50 lb Heart Rate 60 /min BP Systolic 128 mmHg BP Diastolic 78 mmHg Respiratory Rate 18 /min Pain Level 0 BMI (Body Mass Index) 27.2 kg/m2 Results Description No Information Available Procedures Description No Information Available Medical Devices Description No Information Available Encounters Type Date Location Provider Dx Diagnosis Office Visit 08/29/2019 [facility] Danitza Jem, K52.9 Noninfective 9:25a Assoc,pc STRUCTURAL DRAFTER gastroenteritis and Hospitalists colitis, unspecified N40.0 Benign prostatic hyperplasia without lower urinry tract symp Office Visit 08/28/2019 [facility] Joceline R11.2 Nausea with 9:24a Assoc,pc Kohler, STRUCTURAL DRAFTER vomiting, Hospitalists unspecified R10.9 Unspecified abdominal pain R19.7 Diarrhea, unspecified N40.0 Benign prostatic hyperplasia without lower urinry tract symp Assessments Date Code Description Provider 08/29/2019 K52.9 Noninfective gastroenteritis and colitis, Danitza Jem, STRUCTURAL DRAFTER unspecified 08/29/2019 N40.0 Benign prostatic hyperplasia without lower Danitza Jem, STRUCTURAL DRAFTER urinary tract symptoms 08/28/2019 R11.2 Nausea with vomiting, unspecified Joceline Franck, STRUCTURAL DRAFTER 08/28/2019 R10.9 Unspecified abdominal pain Joceline Franck, STRUCTURAL DRAFTER 08/28/2019 R19.7 Diarrhea, unspecified Joceline Franck, STRUCTURAL DRAFTER 08/28/2019 N40.0 Benign prostatic hyperplasia without lower Joceline Kohler , STRUCTURAL DRAFTER urinary tract symptoms Plan of Treatment No Information Available Functional Status Description No Information Available Mental Status Description No Information Available Referrals Description No Information Available
[2019-11-07] MEDS ORDERED: Haloperidol INJ IV/IM* 5 MG/ML AMP IV SLOW PU ONE ×2 (03:42→05:24)
[2019-11-07] MEDS ORDERED: Morphine 10 MG/ML VIAL (1 ml) IV ONE ×2 (03:42→05:24)
[2019-11-07] MEDS ORDERED: NS 0.9% 1000 ML** 1,000 ML IV ONE ×2 (03:42→08:23)
--- NOTE | 2019-11-07 03:45 | ED ---
Abdominal Pain/Male - HPI Summary HPI Summary: This patient is a 69 year old male presenting to [facility] with a chief complaint of sudden onset umbilical pain since 4 hours ago. He reports nausea and vomiting. Patient states this has been a recurring problem, with the last episode one month ago. Pt was here on Wednesday for an endo/colonoscopy here and follows with Dr. Tubbs, GI. - History of Current Complaint Chief Complaint: EDAbdPain Stated Complaint: ABD PAIN PER PT Time Seen by Provider: 11/07/19 03:37 Hx Obtained From: Patient Onset/Duration: Lasting Hours Pain Intensity: 10 Pain Scale Used: 0-10 Numeric Location: Umbilical - Allergies/Home Medications Allergies/Adverse Reactions: Allergies Allergy/AdvReac Type Severity Reaction Status Date / Time No Known Allergies Allergy Verified 11/07/19 03:26 Home Medications: Home Medications Omeprazole CAP (NF) [Prilosec CAP* 20 MG] 20 mg PO DAILY 11/07/19 [History Confirmed 11/07/19] PMH/Surg Hx/FS Hx/Imm Hx Endocrine/Hematology History: Denies: Hx Anticoagulant Therapy, Hx Blood Disorders, Hx Diabetes, Hx Thyroid Disease, Hx Anemia, Hx Unexplained Bleeding Cardiovascular History: Reports: Hx Hypercholesterolemia, Other Cardiovascular Problems/Disorders - Hyperlipidemia Denies: Hx Aneurysm, Hx Hypertension, Hx Peripheral Vascular Disease GI History: Reports: Other GI Disorders - gastritis, cyclical vomiting syndrome History: Reports: Hx Benign Prostatic Hyperplasia, Other Problems/ Disorders - Kidney CA, Kidney tumor resection Denies: Hx Renal Disease Musculoskeletal History: Denies: Hx Arthritis, Hx Osteoporosis Sensory History: Denies: Hx Cataracts, Hx Contacts or Glasses, Hx Glaucoma, Hx Hearing Aid Opthamlomology History: Denies: Hx Cataracts, Hx Contacts or Glasses, Hx Glaucoma Neurological History: Denies: Hx Headaches, Hx Seizures, Hx Transient Ischemic Attacks (TIA) Psychiatric History: Denies: Hx Anxiety, Hx Depression - Cancer History Cancer Type, Location and Year: Kidney CA - Surgical History Surgery Procedure, Year, and Place: Kidney tumor resection, 2017 Infectious Disease History: No Infectious Disease History: Denies: History Other Infectious Disease, Traveled Outside the [place] in Last 30 Days - Family History Known Family History: Positive: Non-Contributory Negative: Cardiac Disease, Hypertension - Social History Alcohol Use: None Hx Substance Use: Yes Substance Use Type: Reports: None Substance Use Comment - Amount & Last Used: "Daily" Hx Tobacco Use: Yes - not currently Smoking Status (MU): Former Smoker Review of Systems Negative: Fever Positive: Abdominal Pain, Vomiting, Nausea All Other Systems Reviewed And Are Negative: Yes Physical Exam - Summary Physical Exam Summary: Appearance: Well-appearing, Well-nourished, lying in bed comfortably Skin: Warm, dry, no obvious rash Eyes: sclera anicteric, no conjunctival pallor ENT: mucous membranes moist, pharynx appears normal Neck: Supple, nontender Respiratory: Clear to auscultation, no signs of respiratory distress Cardiovascular: Normal S1, S2. No murmurs. Normal distal pulses in tibial and radial bilaterally. Abdomen: Soft, nontender, normal active bowel sounds present Musculoskeletal: Normal, Strength/ROM Intact Neurological: A&Ox3, awake and alert, mentation is normal, speech is fluent and appropriate Psychiatric: affect is normal, does not appear anxious or depressed Triage Information Reviewed: Yes Vital Signs On Initial Exam: Initial Vitals Temp Pulse Resp BP Pulse Ox 96.3 F 67 20 212/108 99 11/07/19 03:25 11/07/19 03:25 11/07/19 03:25 11/07/19 03:25 11/07/19 03:25 Vital Signs Reviewed: Yes Procedures - Sedation Patient Received Moderate/Deep Sedation with Procedure: No Diagnostics - Vital Signs Vital Signs Temp Pulse Resp BP Pulse Ox 11/07/19 03:25 96.3 F 67 20 212/108 99 - Laboratory Result Diagrams: 11/07/19 03:51 11/07/19 03:51 Lab Statement: Any lab studies that have been ordered have been reviewed, and results considered in the medical decision making process. Abdominal Pain Male Course/Dx - Course Course Of Treatment: This patient is a 69 year old male presenting to [facility] with a chief complaint of sudden onset umbilical pain since 4 hours ago. Patient will be signed out to Dr. Kramer pending CT Abd/Pel at shift change 0700. - Diagnoses Provider Diagnoses: Nausea and vomiting Discharge ED - Sign-Out/Discharge Documenting (check all that apply): Sign-Out Patient Signing out patient TO: Hamzah Kramer - Discharge Plan Condition: Stable Disposition: ADMITTED TO [facility] - Billing Disposition and Condition Condition: STABLE Disposition: Admitted to [facility] - Attestation Statements Document Initiated by Sari: Yes Documenting Scribe: Joel Grover Provider For Whom Sari is Documenting (Include Credential): Gary Monsivais MD Scribe Attestation: I, Joel Grover, scribed for Gary Monsivais MD on 11/07/19 at 2141. Scribe Documentation Reviewed: Yes Provider Attestation: The documentation as recorded by the belkyseJoel accurately reflects the service I personally performed and the decisions made by me, Gary Monsivais MD Status of Scribe Document: Viewed
[2019-11-07 03:59] LABS: ABS Basophils 0.1 10^3/ul (0-0.2); ABS Lymphocytes 1.2 10^3/ul (1.0-4.8); ABS Monocytes 0.9 10^3/ul (0-0.8); ABS Neutrophils 13.8 10^3/ul (1.5-7.7); Eosinophil % 0.2 %; Hematocrit 38 % (42-52); Hemoglobin 13.7 g/dL (14.0-18.0); Lymphocyte % 7.3 %; Mean Corpuscular HGB Conc 36 g/dL (31-36); Mean Corpuscular Hemoglobin 33 pg (27-31); Mean Corpuscular Volume 94 fL (80-94); Mean Platelet Volume 6.9 fL (7.4-10.4); Platelet Count 368 10^3/uL (150-450); Red Blood Count 4.09 10^6 /uL (4.18-5.48); Red Cell Distribution Width 15 % (10-15)
[2019-11-07 04:14] LABS: Albumin 4.5 g/dL (3.2-5.2); Albumin/Globulin Ratio 1.3 (1-3); BUN/Creatinine Ratio 11.6 (8-20); C Reactive Protein 5.89 mg/L (<8.01); Calcium 9.2 mg/dL (8.6-10.3); EGFR African American 95.7 (>60); EGFR Non-African American 79.1 (>60); Globulin 3.4 g/dL (2-4); Potassium 3.6 mmol/L (3.5-5.0); Total Bilirubin 0.5 mg/dL (0.2-1.0); Total Protein 7.9 g/dL (6.4-8.9)
[2019-11-07] MEDS ORDERED: Iodixanol* (CONTRAST) 320 MG/ML 100 ML SDV IV ONE (05:18)
--- NOTE | 2019-11-07 07:14 | ED ---
Progress - Progress Note Progress Note: This pt is a sign out from Dr. Monsivais to Dr. Kramer at shift change on 11/07/[address] abdomen/pelvis. - Results/Orders Results/Orders: Abdomen/Pelvis CT, as read by radiologist IMPRESSION: 1. There is no evidence of pneumoperitoneum. 2. The prostate is enlarged measuring approximately 6.5 CM. 3. The appendix is visualized and is unremarkable. 4. 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 Dr. Kramer has reviewed this report. Re-Evaluation - Re-Evaluation First Eval Re-Evaluation Time: 07:57 Change: Improved Comment: Pt is feeling better. He will be discharged home with follow up from his PCP. Second Eval Re-Evaluation Time: 08:25 Change: Worse Comment: ED nurse, Laxmi Cody, reports after discharging the patient, he vomited half way through the door. Course/Dx - Course Course Of Treatment: This patient was signed out by Dr. Monsivais pending abdomen/ pelvis CT. CT shows 1. There is no evidence of pneumoperitoneum. 2. The prostate is enlarged measuring approximately 6.5 CM. 3. The appendix is visualized and is unremarkable. 4. 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 On re-evaluation patient is feeling better. Therefore he will be discharged home with follow up from his primary care provider in 2-3 days. He was instructed to return to the ED for any worsening symptoms. After discharging the patient home, nurse reports patient vomited. Discussed the case with Dr. Purcell, hospitalist, who accepted the patient for admission. - Diagnoses Provider Diagnoses: Nausea and vomiting - Provider Notifications Discussed Care Of Patient With: Savanna Purcell Time Discussed With Above Provider: 08:24 Instructed by Provider To: Other - Discussed the case with Dr. Purcell, hospitalist , who accepted the pt for admission. Discharge ED - Sign-Out/Discharge Documenting (check all that apply): Patient Departure - Admit to [facility], Receiving Sign-Out Receiving patient FROM: Gary Monsivais - Discharge Plan Condition: Stable Disposition: ADMITTED TO [facility] - Billing Disposition and Condition Condition: STABLE Disposition: Admitted to [facility] - Attestation Statements Document Initiated by Scribe: Yes Documenting Scribe: Meenakshi Garcia Provider For Whom Scribe is Documenting (Include Credential): Hamzah Kramer MD Scribe Attestation: I, Meenakshi Garcia, scribed for Hamzah Kramer MD on 11/07/19 at 1836. Scribe Documentation Reviewed: Yes Provider Attestation: The documentation as recorded by the scribe, Meenakshi Garcia accurately reflects the service I personally performed and the decisions made by me, Hamzah Kramer MD Status of Scribe Document: Viewed
[2019-11-07] MEDS ORDERED: Ondansetron INJ* 2 MG/ML VIAL IV ONE (08:23)
[2019-11-07 09:07] LABS: Urine Appearance Clear; Urine Bilirubin Negative (Negative); Urine Blood 1+ (Negative); Urine Color Yellow; Urine Glucose Negative (Negative); Urine Ketones Negative (Negative); Urine Nitrite Negative (Negative); Urine Protein 1+(30 mg/dL) (Negative); Urine Specific Gravity 1.026 (1.010-1.030); Urine Urobilinogen Negative (Negative)
[2019-11-07 09:09] LABS: Urine Bacteria Absent (Absent); Urine Red Blood Cell 2+(6-10/hpf) (Absent); Urine White Blood Cell Trace(0-5/hpf) (Absent)
[2019-11-07 09:22] LABS: Urine Benzodiazepine Screen None Detected (None Detect); Urine Opiates Screen Presumptive Positive (None Detect)
[2019-11-07] MEDS ORDERED: oxyCODONE/Acetamin 5/325 MG* TAB PO PRN (09:39)
[2019-11-07] MEDS ORDERED: Ondansetron INJ* 2 MG/ML VIAL IV PRN (09:39)
[2019-11-07] MEDS ORDERED: Morphine INJ* 2 MG/ML 1 ML SYRINGE (TWO MG - NEW SYRINGE VERSION) IV PRN (09:39)
[2019-11-07] MEDS ORDERED: Acetaminophen TAB* 325 MG PO PRN (09:39)
[2019-11-07] MEDS: NS 0.9% 1000 ML** 1,000 ML IV SCH ×2 (11:20→23:13)
--- NOTE | 2019-11-07 12:07 | HP ---
CC: Dr. King; Dr. Galdino Tubbs * HISTORY AND PHYSICAL: DATE OF ADMISSION: 11/07/19 PRIMARY CARE PROVIDER: Dr. King. CHIEF COMPLAINT: Nausea, vomiting, diarrhea. HISTORY OF PRESENT ILLNESS: Please be aware that Mr. Crews was treated with a total of 20 mg of morphine and 10 mg of Haldol in the past 3 hours and currently is very lethargic and a very poor historian. From this what I was able to obtain from this lethargic patient is that the patient started having nausea, vomiting, and diarrhea all at the same time at midnight on 11/06/19. He came into the ED where a CT of the abdomen and pelvis did not show any marked abnormalities. He was treated with 2 doses of 5 mg of Haldol and 2 doses of 10 mg of morphine together with Zofran and initially it appeared that he got better and he is able to go home and then he started vomiting again. The patient is going to be placed on overnight observation with a diagnosis of nausea and vomiting. PAST MEDICAL HISTORY: 1. History of cyclical vomiting, status post upper endoscopy and colonoscopy obtained by Dr. Tubbs on 11/03/19 just 4 days ago, which showed a small sliding hiatal hernia, normal stomach and duodenum, proximal right colonic diverticula that are uninflamed. 2. History of renal cell carcinoma, status post nephrectomy. 3. Chronic marijuana use. 4. History of BPH. 5. Dyslipidemia. 6. History of gastritis. MEDICATIONS AT HOME: Include: 1. Tamsulosin 0.4 mg daily. 2. Omeprazole 20 mg daily. ALLERGIES: No known drug allergies. FAMILY HISTORY: Obtained from medical records. The patient's mother at the age of 92 of old age. Father at the age of 77 secondary to stroke. SOCIAL HISTORY: The patient quit smoking approximately 12 years ago. He admits to marijuana use but he is not able to give me the details. He denies any alcohol use. 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 REVIEW OF SYSTEMS: Please see history of present illness. All the remaining 12 systems were attempted to be reviewed with the patient but basically unobtainable due to sedation. PHYSICAL EXAMINATION GENERAL: The patient is a pleasant 69-year-old male who is in no acute distress. The patient is lethargic but oriented x3. Drifts off to sleep almost instantaneously after being asked, a very poor historian. VITAL SIGNS: Blood pressure of 162/87, heart rate of 68 and regular, respiratory rate 18, oxygen saturation 97% on room air, temperature 97.8. HEENT: Head: Atraumatic, normocephalic. Eyes: Pupils are equal, reactive to light and accommodation. Oropharynx clear. Mucosa moist. NECK: Supple. No JVD. No bruits bilaterally. RESPIRATORY: Clear to auscultation bilaterally. CARDIOVASCULAR: Regular rate and rhythm. No murmur. ABDOMEN: Soft, nontender. Bowel sounds are present in all 4 quadrants. EXTREMITIES: There is no edema. Pulses are +2 bilaterally. No clubbing or cyanosis. NEURO EVALUATION: Speech clear. Cranial nerves II through XII grossly intact. Motor strength is 5/5 bilaterally. DIAGNOSTIC STUDIES/LAB DATA: Sodium 140, potassium 3.6, chloride 106, carbon dioxide 23, BUN 11, creatinine 0.95. Liver function tests were unremarkable. Lactic acid elevated at 2.1 likely due to vomiting. CBC: White blood cell count 16.0, hemoglobin 13.7, hematocrit 38, and platelets of 368. Urine tox screen was obtained after the patient received narcotics in the ED and showed positive for marijuana, positive for opioids. Urinalysis showed trace blood, +2 rbc's, and +[address] of abdomen and pelvis, impression: "There is no evidence of pneumoperitoneum. The prostate is enlarged, measuring approximately 6.5 cm. The appendix is visualized and is unremarkable. 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 The patient has intractable nausea and vomiting and also reported diarrhea approximately 3 to 4 times ever since midnight last night. For this, he is going to be placed on overnight observation. His lactic acid is elevated likely due to dehydration and vomiting. I do not believe he is septic. He is going to be continued on intravenous hydration with Zofran on an as needed basis. Unfortunately at this point, I cannot educate the patient the possibility of marijuana causing the probable cyclical vomiting since the patient is too lethargic. 2. Leukocytosis. Likely related to stress due to nausea and vomiting. I do not believe the patient is septic. 3. DVT prophylaxis: The patient is going to be placed on heparin subcutaneously. 4. The patient has a markedly enlarged prostate. He has followed up with Dr. Salazar in the past. He is going to continue on tamsulosin. 5. His code status is full. His surrogate is his girlfriend. TIME SPENT: Approximately 55 minutes was spent on admission of this patient, more than half that time was spent poil-ta-enar with the patient during the interview and physical exam. [id number]/[facility] #: [id number] YURI
[2019-11-07] MEDS: Heparin VIAL(*) 5000 UNITS/ML VIAL (FIVE THOUSAND) SUBCUT SCH ×2 (14:10→21:23)
[2019-11-08 06:02] LABS: ABS Lymphocytes 1.2 10^3/ul (1.0-4.8); ABS Monocytes 1.1 10^3/ul (0-0.8); ABS Neutrophils 5.7 10^3/ul (1.5-7.7); Eosinophil % 0.1 %; Hematocrit 34 % (42-52); Hemoglobin 12.4 g/dL (14.0-18.0); Lymphocyte % 15.3 %; Mean Corpuscular HGB Conc 37 g/dL (31-36); Mean Corpuscular Hemoglobin 34 pg (27-31); Mean Corpuscular Volume 92 fL (80-94); Mean Platelet Volume 6.8 fL (7.4-10.4); Platelet Count 304 10^3/uL (150-450); Red Blood Count 3.68 10^6 /uL (4.18-5.48); Red Cell Distribution Width 15 % (10-15); White Blood Count 8.1 10^3/uL (3.5-10.8)
[2019-11-08 06:14] LABS: BUN/Creatinine Ratio 11.4 (8-20); Calcium 8.1 mg/dL (8.6-10.3); EGFR African American 118.4 (>60); EGFR Non-African American 97.8 (>60); Potassium 3.5 mmol/L (3.5-5.0)
[2019-11-08] MEDS: Heparin VIAL(*) 5000 UNITS/ML VIAL (FIVE THOUSAND) SUBCUT SCH (06:20)
[2019-11-08] MEDS ORDERED: Tamsulosin CAP* 0.4 MG PO SCH (09:00)
[2019-11-08] MEDS ORDERED: Pantoprazole TAB * 40 MG TAB PO SCH (09:00)
[2019-11-08 11:17] VITALS: BP 150/82
--- NOTE | 2019-11-08 22:02 | DS ---
DISCHARGE SUMMARY: DATE OF ADMISSION: DATE OF DISCHARGE: ADDENDUM: DISPOSITION: Home. YUSUF SHEA [id number]/[facility] #: [id number] MTDD
--- NOTE | 2019-11-09 00:25 | DS ---
ADDENDUM FOR DISPOSITION NOW INCLUDED ON THIS REPORT DISCHARGE SUMMARY: DATE OF ADMISSION: 11/07/19 DATE OF DISCHARGE: 11/08/19 ATTENDING PHYSICIAN WHILE IN THE HOSPITAL: Dr. Yolande Coats * (dictated by YUSUF Montano). PRIMARY DIAGNOSES: 1. Nausea and vomiting related to cyclic vomiting syndrome and marijuana use, resolved. 2. Diarrhea, resolved, possibly related to viral gastroenteritis. SECONDARY DIAGNOSES: 1. Cyclic vomiting syndrome. 2. History of renal cell carcinoma, status post nephrectomy. 3. Chronic marijuana use. 4. Benign prostatic hypertrophy. 3. Dyslipidemia. 4. Prior history of gastritis. SIGNIFICANT STUDIES/LAB DATA: Initial lactic acid 2.1, later 0.7. Initial white blood cell count 16.0, later 8.1. Urine culture without growth. Urine cannabinoids presumptive positive. Urine opiates presumptive positive (of note, the patient was given morphine in the emergency department prior to the urine collection). Significant Studies: Abdomen/pelvis CT on 11/07/19, impression: There is no evidence of pneumoperitoneum. The prostate is enlarged measuring approximately 6.5 cm. The appendix is visualized and is unremarkable. 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 HISTORY OF PRESENT ILLNESS/HOSPITAL COURSE: Red Crews is a 69-year-old black male with a past medical history significant for cyclic vomiting syndrome ; chronic marijuana use; renal cell carcinoma, status post nephrectomy; BPH who presented to emergency department due to nausea, vomiting, and diarrhea on 11/07. The patient had a recent discharge for similar presentation and did continue to smoke marijuana afterwards. Of note, the patient additionally had an endoscopy and colonoscopy on 11/03/[address] Tubbs, which showed small sliding hiatal hernia and otherwise was normal aside from right colonic diverticula that were uninflamed. For further details regarding his admission, please see history and physical written by Dr. Savanna Purcell on 11/07/19. On date of discharge, the patient was symptom free. He was starting to have a formed stool this morning. He is no longer nauseous and had not vomited since admission. He had denied abdominal pain, fever, chills, blood in his stool, chest pain, difficulty breathing. He and I had an extensive conversation about cessation of marijuana use and he felt he was feeling his normal self. He told me that he smokes marijuana for the high and he denied any indication of self- medication. In that regard, he denied feelings of anxiety or insomnia as need for smoking marijuana. The patient's abdomen/pelvis CT did not show any signs of inflammation and I believe this is still presenting due to his chronic marijuana use, especially considering is overall normal endoscopy and colonoscopy with Dr. Tubbs this month. His diarrhea could certainly be due to his poor diet, and for that reason, I did consult his registered dietitian, who saw the patient prior to his discharge today. Otherwise, the patient is agreeable to discharge. The patient initially presented with a minimally elevated lactic acid, which did resolve with fluid resuscitation and he additionally presented with a leukocytosis, which could possibly represent my suspicion of a possible viral gastroenteritis, but my suspicion for this is low and is possibly just related to stress of the sudden onset of nausea and vomiting. PHYSICAL EXAMINATION ON DAY OF DISCHARGE: General: Black male, appears his stated age, sitting upright in hospital bed, appearing comfortable, in no acute distress. Eyes: PERRL. Sclerae anicteric. ENT: Mucous membranes moist. Lungs: Clear to auscultation throughout. Cardio: Regular rate and rhythm without murmurs, rubs, or gallops. Abdomen: Normoactive bowel sounds x4 quadrants. Abdomen is soft, nontender, nondistended. Extremities: No clubbing , cyanosis, or edema. Neuro: The patient is alert and oriented x3. No focal deficits and able to move all 4 extremities. DISCHARGE PLAN: Diet: Regular unrestricted diet. Activity: The patient may return to normal activities as tolerated. DISCHARGE MEDICATIONS: Continued home medications: 1. Zofran 4 mg sublingual q.6 hours p.r.n. nausea and vomiting. 2. Omeprazole 20 mg p.o. daily. 3. Tamsulosin 0.4 mg p.o. daily. New Medications: None. The patient and I had extensive conversation regarding cessation of marijuana use and the patient was emphatically encouraged to abstain from marijuana use considering his cyclic vomiting syndrome and his frequent hospitalizations and emergency department visits due to this and the risks of being in the hospital for that as well as the risk of dehydration related to his vomiting. The patient is advised to follow up with primary care provider within 1 week. At this time, I do advise a repeat CBC to evaluate if this leukocytosis is frequent at baseline; however, it did resolve during his hospital stay. I did offer resources for drug and alcohol counseling and the patient declined. Otherwise, he is advised to follow up with Gastroenterology as well within a month and he already has a scheduled appointment. The patient is advised to return to the emergency department if he is experiencing vomiting to the point of not being able to keep down liquids, blood in his stool, fever, chills, severe abdominal pain, chest pain, or other concerning symptoms. CONDITION ON DISCHARGE: Stable. DISPOSITION: Home. TIME SPENT: Approximately 45 minutes was spent on this discharge, approximately half that time was spent at bedside evaluating the patient, counseling the patient, and discussing the plan of care. YUSUF MONTANO [id number]/[facility] #: [id number]/[facility] #: [id number] YURI
== END 2019-11-08 13:00 | disposition home or self-care (01) ==
LOC: ED 03:13 → MED 09:39
PROVIDERS: ADMIT Internal Medicine; ATTEND Internal Medicine
DX: R11.15 Cyclical vomiting syndrome unrelated to migraine (principal); R19.7 Diarrhea, unspecified; Z85.53 Personal history of malignant neoplasm of renal pelvis; F12.90 Cannabis use, unspecified, uncomplicated; N40.0 Benign prostatic hyperplasia without lower urinary tract symptoms; E78.5 Hyperlipidemia, unspecified; Z87.19 Personal history of other diseases of the digestive system; Z79.899 Other long term (current) drug therapy; Z87.891 Personal history of nicotine dependence; E78.00 Pure hypercholesterolemia, unspecified
CPT/HCPCS: 36415; 74177; 80048; 80053; 80307; 81003; 81015; 83605; 83690; 85025; 86140; 87086; 96361; 96372; 96374; 96375; 96376; 99284; A9270-GY; G0378; J1630; J1644; J2270; J2405; Q9967

== ENCOUNTER 2021-03-29 09:37 | Inpatient (IN) ==
[2021-03-29] MEDS ORDERED: Morphine 4 MG/ML VIAL (1 ml) IV ONE (10:55)
[2021-03-29] MEDS ORDERED: Ondansetron 4 mg VIAL 2 MG/ML 2 ml VIAL IV ONE (10:56)
[2021-03-29] MEDS ORDERED: Magnesium Sulfate 2 gm BAG 2 GM/50 ML BAG IVPB ONE (10:57)
[2021-03-29] MEDS ORDERED: NS 0.9% 1000 ml BAG 1,000 ML IV ONE (10:57)
[2021-03-29 11:06] LABS: ABS Basophils 0.1 10^3/ul (0-0.2); ABS Lymphocytes 0.6 10^3/ul (1.0-4.8); ABS Monocytes 0.5 10^3/ul (0-0.8); ABS Neutrophils 13.2 10^3/ul (1.5-7.7); Hematocrit 41 % (42-52); Hemoglobin 14.3 g/dL (14.0-18.0); Lymphocyte % 4.4 %; Mean Corpuscular HGB Conc 35 g/dL (31-36); Mean Corpuscular Hemoglobin 33 pg (27-31); Mean Corpuscular Volume 94 fL (80-94); Mean Platelet Volume 7.4 fL (7.4-10.4); Platelet Count 354 10^3/uL (150-450); Red Blood Count 4.38 10^6 /uL (4.18-5.48); Red Cell Distribution Width 15 % (10-15); White Blood Count 14.5 10^3/uL (3.5-10.8)
[2021-03-29] MEDS: NS 0.9% 1000 ml BAG 1,000 ML IV ONE ×3 (11:12→13:00)
[2021-03-29 11:17] LABS: Urine Appearance Clear; Urine Bilirubin Negative (Negative); Urine Blood 1+ (Negative); Urine Color Straw; Urine Glucose 1+(50 mg/dL) (Negative); Urine Ketones Negative (Negative); Urine Nitrite Negative (Negative); Urine Protein 2+(100 mg/dL) (Negative); Urine Specific Gravity 1.012 (1.002-1.030); Urine Urobilinogen Negative (Negative)
[2021-03-29 11:24] LABS: Albumin 4.9 g/dL (3.2-5.2); Albumin/Globulin Ratio 1.5 (1-3); Calcium 9.8 mg/dL (8.6-10.3); EGFR Non-African American 95.8 (>60); Globulin 3.2 g/dL (2-4); Magnesium 1.6 mg/dL (1.9-2.7); Potassium 3.7 mmol/L (3.5-5.0); Total Bilirubin 0.5 mg/dL (0.2-1.0); Total Protein 8.1 g/dL (6.4-8.9)
[2021-03-29 11:33] LABS: Urine Bacteria Absent (Absent); Urine Red Blood Cell 2+(6-10/hpf) (Absent); Urine Squamous Epithelial Cell Present (Absent); Urine White Blood Cell Trace(0-5/hpf) (Absent)
[2021-03-29] MEDS ORDERED: HYDROmorphone 1 MG/1 ML SYRINGE IV SLOW PU ONE ×2 (12:08→14:53)
[2021-03-29 13:23] LABS: Urine Appearance Clear; Urine Bilirubin Negative (Negative); Urine Blood 1+ (Negative); Urine Color Straw; Urine Glucose 1+(50 mg/dL) (Negative); Urine Ketones Negative (Negative); Urine Nitrite Negative (Negative); Urine Protein 2+(100 mg/dL) (Negative); Urine Specific Gravity 1.009 (1.002-1.030); Urine Urobilinogen Negative (Negative)
[2021-03-29 13:27] LABS: Urine Bacteria Absent (Absent); Urine Red Blood Cell 2+(6-10/hpf) (Absent); Urine White Blood Cell Absent (Absent)
[2021-03-29] MEDS ORDERED: Iodixanol (CONTRAST) 320 MG/ML 100 ML SDV IV ONE (13:46)
[2021-03-29] MEDS ORDERED: hydrALAZINE 20 mg/ml 1 ML Vial IV IV SLOW PU ONE (14:54)
[2021-03-29] MEDS ORDERED: CMCS:Omeprazole 20 mg CAP (NF) PO PRN (16:31)
[2021-03-29] MEDS ORDERED: Piperacillin/Tazobac ADVAN 3.375 GM in NS 0.9% 100 ml BAG 100 ML IV ONE (16:35)
[2021-03-29] MEDS ORDERED: hydrALAZINE 20 mg/ml 1 ML Vial IV IV SLOW PU PRN (16:37)
[2021-03-29] MEDS ORDERED: Ondansetron 4 mg VIAL 2 MG/ML 2 ml VIAL IV PRN ×2 (16:38→22:54)
[2021-03-29] MEDS ORDERED: Zosyn per Pharmacy NOTE FOLLOW UP SCH (17:00)
[2021-03-29] MEDS ORDERED: Lactated Ringers 1000 ml BAG 1,000 ML IV SCH (17:00)
[2021-03-29] MEDS: Enoxaparin 40 MG/0.4 ML SYR SUBCUT SCH (21:34)
[2021-03-29] MEDS: ZOSYN 3.375 GM Q6H - Intermittant 30 min Infusion IV SCH (22:20)
[2021-03-30] MEDS ORDERED: Prochlorperazine 5 mg/ml 2 ml VIAL (10 mg) IV PRN (01:15)
[2021-03-30] MEDS: ZOSYN 3.375 GM Q6H - Intermittant 30 min Infusion IV SCH (04:50)
[2021-03-30 05:32] LABS: Hematocrit 42 % (42-52); Hemoglobin 14.8 g/dL (14.0-18.0); Mean Corpuscular HGB Conc 35 g/dL (31-36); Mean Corpuscular Hemoglobin 33 pg (27-31); Mean Corpuscular Volume 93 fL (80-94); Mean Platelet Volume 7.3 fL (7.4-10.4); Platelet Count 335 10^3/uL (150-450); Red Blood Count 4.54 10^6 /uL (4.18-5.48); Red Cell Distribution Width 15 % (10-15); White Blood Count 18.4 10^3/uL (3.5-10.8)
[2021-03-30 05:36] LABS: INR 1.14 (0.82-1.09)
[2021-03-30 05:49] LABS: Albumin 4.5 g/dL (3.2-5.2); Albumin/Globulin Ratio 1.5 (1-3); Calcium 9.3 mg/dL (8.6-10.3); EGFR African American 124.9 (>60); EGFR Non-African American 103.3 (>60); Globulin 3.1 g/dL (2-4); Magnesium 1.8 mg/dL (1.9-2.7); Potassium 3.5 mmol/L (3.5-5.0); Total Bilirubin 0.7 mg/dL (0.2-1.0); Total Protein 7.6 g/dL (6.4-8.9)
[2021-03-30 05:50] LABS: ABS Basophils 0.1 10^3/ul (0-0.2); ABS Lymphocytes 1.2 10^3/ul (1.0-4.8); ABS Monocytes 1.6 10^3/ul (0-0.8); ABS Neutrophils 15.5 10^3/ul (1.5-7.7); Lymphocyte % 6.6 %
[2021-03-30] MEDS ORDERED: Magnesium Sulfate 2 gm BAG 2 GM/50 ML BAG IVPB ONE (08:06)
[2021-03-30] MEDS: Pantoprazole VIAL 40 MG VIAL IV SCH (08:30)
[2021-03-30] MEDS: ZOSYN 3.375 GM Q8H per EXTENDED INFUSION IV SCH ×2 (09:32→16:36)
[2021-03-30] MEDS: Enoxaparin 40 MG/0.4 ML SYR SUBCUT SCH (16:36)
[2021-03-31] MEDS: ZOSYN 3.375 GM Q8H per EXTENDED INFUSION IV SCH ×3 (01:06→16:38)
[2021-03-31] MEDS: Pantoprazole VIAL 40 MG VIAL IV SCH (08:57)
[2021-03-31 11:10] LABS: Hematocrit 41 % (42-52); Hemoglobin 14.5 g/dL (14.0-18.0); Mean Corpuscular HGB Conc 35 g/dL (31-36); Mean Corpuscular Hemoglobin 33 pg (27-31); Mean Corpuscular Volume 93 fL (80-94); Mean Platelet Volume 6.8 fL (7.4-10.4); Platelet Count 317 10^3/uL (150-450); Red Blood Count 4.41 10^6 /uL (4.18-5.48); Red Cell Distribution Width 15 % (10-15); White Blood Count 12.8 10^3/uL (3.5-10.8)
[2021-03-31] MEDS: Enoxaparin 40 MG/0.4 ML SYR SUBCUT SCH (16:38)
[2021-04-01] MEDS: ZOSYN 3.375 GM Q8H per EXTENDED INFUSION IV SCH ×2 (01:30→10:14)
[2021-04-01 06:39] LABS: ABS Basophils 0.1 10^3/ul (0-0.2); ABS Lymphocytes 2.7 10^3/ul (1.0-4.8); ABS Monocytes 1.6 10^3/ul (0-0.8); ABS Neutrophils 6.5 10^3/ul (1.5-7.7); Eosinophil % 0.4 %; Hematocrit 40 % (42-52); Hemoglobin 14.4 g/dL (14.0-18.0); Mean Corpuscular HGB Conc 36 g/dL (31-36); Mean Corpuscular Hemoglobin 33 pg (27-31); Mean Corpuscular Volume 92 fL (80-94); Mean Platelet Volume 6.9 fL (7.4-10.4); Nucleated Red Blood Cells % 0.1; Platelet Count 314 10^3/uL (150-450); Red Blood Count 4.36 10^6 /uL (4.18-5.48); Red Cell Distribution Width 15 % (10-15); White Blood Count 10.9 10^3/uL (3.5-10.8)
[2021-04-01 06:51] LABS: EGFR Non-African American 82.6 (>60); Magnesium 1.9 mg/dL (1.9-2.7); Potassium 3.5 mmol/L (3.5-5.0)
[2021-04-01] MEDS: Pantoprazole VIAL 40 MG VIAL IV SCH (10:15)
[2021-04-01 18:57] VITALS: BP 134/77
== END 2021-04-01 17:55 | disposition home or self-care (01) | DRG 872 ==
LOC: ED 09:37 → MED 17:19
PROVIDERS: ADMIT Internal Medicine; ATTEND Internal Medicine

== ENCOUNTER 2021-07-09 08:03 | Observation (INO) ==
[2021-07-09] MEDS ORDERED: Al Hydrox/Mg Hydrox/Simet LIQ 30 ML UDC PO ONE (08:59)
[2021-07-09] MEDS ORDERED: NS 0.9% 1000 ml BAG 1,000 ML IV ONE ×2 (08:59→10:08)
[2021-07-09] MEDS ORDERED: Famotidine IV 10 MG/ML 2 ml VIAL (20 mg) IV SLOW PU ONE (08:59)
[2021-07-09] MEDS ORDERED: Ondansetron 4 mg VIAL 2 MG/ML 2 ml VIAL IV ONE (08:59)
[2021-07-09] MEDS ORDERED: Morphine 4 MG/ML VIAL (1 ml) IV ONE (08:59)
[2021-07-09 09:33] LABS: ABS Basophils 0.1 10^3/ul (0-0.2); ABS Lymphocytes 0.7 10^3/ul (1.0-4.8); ABS Monocytes 0.8 10^3/ul (0-0.8); ABS Neutrophils 14.4 10^3/ul (1.5-7.7); Hematocrit 44 % (42-52); Hemoglobin 15.4 g/dL (14.0-18.0); Lymphocyte % 4.6 %; Mean Corpuscular HGB Conc 35 g/dL (31-36); Mean Corpuscular Hemoglobin 33 pg (27-31); Mean Corpuscular Volume 93 fL (80-94); Mean Platelet Volume 7.1 fL (7.4-10.4); Platelet Count 331 10^3/uL (150-450); Red Blood Count 4.69 10^6 /uL (4.18-5.48); Red Cell Distribution Width 15 % (10-15)
[2021-07-09 09:56] LABS: ALT 17 U/L (7-52); AST 18 U/L (13-39); Albumin 4.9 g/dL (3.2-5.2); Albumin/Globulin Ratio 1.4 (1-3); Alkaline Phosphatase 89 U/L (35-149); Anion Gap 15 mmol/L (2-11); Blood Urea Nitrogen 8 mg/dL (6-24); CO2 Carbon Dioxide 21 mmol/L (22-32); Calcium 9.9 mg/dL (8.6-10.3); Chloride 103 mmol/L (101-111); Creatine Kinase 86 U/L (10-223); EGFR African American 101.2 (>60); EGFR Non-African American 83.7 (>60); Globulin 3.5 g/dL (2-4); Glucose 158 mg/dL (70-100); Lipase 14 U/L (11.0-82.0); Sodium 139 mmol/L (135-145); Total Protein 8.4 g/dL (6.4-8.9)
[2021-07-09 10:02] LABS: Acetaminophen < 15 mcg/mL
[2021-07-09] MEDS ORDERED: Iohexol 300 (CONTRAST) 10 ML SDV IV ONE (11:34)
[2021-07-09] MEDS ORDERED: Ciprofloxacin 400mg IVPREMIX 400 MG/200 ML BAG IVPB ONE (12:12)
[2021-07-09 12:45] LABS: Urine Appearance Clear; Urine Bilirubin Negative (Negative); Urine Blood 2+ (Negative); Urine Color Straw; Urine Glucose 1+(50 mg/dL) (Negative); Urine Ketones Negative (Negative); Urine Nitrite Negative (Negative); Urine Protein 3+(>=500 mg/dL) (Negative); Urine Specific Gravity 1.024 (1.002-1.030); Urine Urobilinogen Negative (Negative)
[2021-07-09 12:49] LABS: Urine Bacteria Absent (Absent); Urine Red Blood Cell 3+(>10/hpf) (Absent); Urine White Blood Cell Trace(0-5/hpf) (Absent)
[2021-07-09 16:11] LABS: C Reactive Protein 2.62 mg/L (<8.01)
[2021-07-09] MEDS: Enoxaparin 40 MG/0.4 ML SYR SUBCUT SCH (17:56)
[2021-07-09] MEDS: Ciprofloxacin 400mg IVPREMIX 400 MG/200 ML BAG IVPB SCH (22:55)
[2021-07-10 05:55] LABS: Hematocrit 42 % (42-52); Mean Corpuscular HGB Conc 35 g/dL (31-36); Mean Corpuscular Hemoglobin 32 pg (27-31); Mean Corpuscular Volume 92 fL (80-94); Platelet Count 323 10^3/uL (150-450); Red Blood Count 4.63 10^6 /uL (4.18-5.48); Red Cell Distribution Width 14 % (10-15); White Blood Count 15.9 10^3/uL (3.5-10.8)
[2021-07-10 06:12] LABS: Calcium 9.1 mg/dL (8.6-10.3); EGFR Non-African American 95.8 (>60); Potassium 3.6 mmol/L (3.5-5.0)
[2021-07-10 08:05] LABS: ABS Basophils 0.1 10^3/ul (0-0.2); ABS Lymphocytes 1.9 10^3/ul (1.0-4.8); ABS Monocytes 1.9 10^3/ul (0-0.8); Lymphocyte % 12.2 %
[2021-07-10] MEDS: Ciprofloxacin 400mg IVPREMIX 400 MG/200 ML BAG IVPB SCH ×2 (11:40→23:13)
[2021-07-10] MEDS: Enoxaparin 40 MG/0.4 ML SYR SUBCUT SCH (18:10)
[2021-07-11 06:09] LABS: ABS Basophils 0.1 10^3/ul (0-0.2); ABS Lymphocytes 2.3 10^3/ul (1.0-4.8); ABS Monocytes 1.5 10^3/ul (0-0.8); ABS Neutrophils 8.2 10^3/ul (1.5-7.7); Eosinophil % 0.2 %; Hematocrit 39 % (42-52); Mean Corpuscular HGB Conc 36 g/dL (31-36); Mean Corpuscular Hemoglobin 33 pg (27-31); Mean Corpuscular Volume 91 fL (80-94); Mean Platelet Volume 6.8 fL (7.4-10.4); Platelet Count 310 10^3/uL (150-450); Red Cell Distribution Width 15 % (10-15); White Blood Count 12.1 10^3/uL (3.5-10.8)
[2021-07-11 06:30] LABS: Calcium 8.9 mg/dL (8.6-10.3); EGFR African American 102.6 (>60); EGFR Non-African American 84.8 (>60)
[2021-07-11] MEDS: Ciprofloxacin 400mg IVPREMIX 400 MG/200 ML BAG IVPB SCH (09:38)
[2021-07-11 11:34] VITALS: BP 109/73
== END 2021-07-11 11:55 | disposition home or self-care (01) ==
LOC: ED 08:03 → SSU 08:03 → SUATTDRO 15:35 → SSU 17:09
PROVIDERS: ADMIT Internal Medicine; ATTEND Hospitalist

== ENCOUNTER 2023-04-02 10:10 | Observation (INO) ==
[2023-04-02 11:18] LABS: Hematocrit 47.5 % (38-53); Hemoglobin 16.9 g/dL (13.2-16.3); Mean Corpuscular Hemoglobin 31.6 pg (27-33); Mean Corpuscular Hgb Conc 35.5 g/dL (31-36); Mean Corpuscular Volume 88.9 fL (80-97); Red Blood Count 5.34 10^6/uL (4.06-5.63); Red Cell Distribution Width 15.4 % (12-17); White Blood Count 7.4 10^3/uL (3.6-10.2)
[2023-04-02] MEDS ORDERED: Lactated Ringers 1000 ml BAG 1,000 ML IV ONE ×2 (11:19→11:40)
[2023-04-02] MEDS ORDERED: Ondansetron 4 mg VIAL 2 MG/ML 2 ml VIAL IV ONE ×2 (11:19→16:20)
[2023-04-02 11:26] LABS: Activated Partial Thrombo Time 30.3 seconds (26.0-38.0); INR 1.38 (0.88-1.18)
[2023-04-02 11:34] LABS: ALT 67 U/L (7-52); Albumin 4.5 g/dL (3.2-5.2); Albumin/Globulin Ratio 1.2 (1-3); Alkaline Phosphatase 104 U/L (35-149); Blood Urea Nitrogen 23 mg/dL (6-24); C Reactive Protein 63.43 mg/L (<8.01); CO2 Carbon Dioxide 20 mmol/L (22-32); Chloride 97 mmol/L (101-111); Creatine Kinase 363 U/L (10-223); Creatinine, Serum 1.13 mg/dL (0.67-1.17); Globulin 3.9 g/dL (2-4); Glucose 203 mg/dL (70-100); Sodium 129 mmol/L (135-145); Total Protein 8.4 g/dL (6.4-8.9); eGFR CKD-EPI 69.5 (>60)
[2023-04-02 11:40] LABS: High Sens Troponin Baseline 37 pg/mL (<20)
[2023-04-02 11:58] LABS: Anion Gap 12 mmol/L (2-16)
[2023-04-02 12:06] LABS: ABS Lymphocytes 1.1 10^3/uL (1.0-4.8); ABS Neutrophils 5.2 10^3/uL (1.5-7.6); ABS Nucleated RBC 0.02 10^3/ul; Lymphocyte % 15.3 %; Mean Platelet Volume 7.8 fL (7.5-11.2); Nucleated Red Blood Cells % 0.2 /100 WBC (0.0-0.4); Platelet Count 98 10^3/uL (150-450); RBC Morphology Normal (Normal)
[2023-04-02] MEDS ORDERED: Iodixanol (CONTRAST) 320 MG/ML 100 ML SDV IV ONE (12:07)
[2023-04-02] MEDS ORDERED: Metoclopramide 5 MG/ML VIAL (10 mg) IV ONE (12:44)
[2023-04-02] MEDS ORDERED: Acetaminophen IV 1 GM/100ML 1,000 MG/100 ML BAG IV ONE (12:44)
[2023-04-02] MEDS ORDERED: Morphine 4 MG/ML VIAL (1 ml) IV ONE ×3 (15:43→17:24)
[2023-04-02] MEDS ORDERED: Haloperidol 5 mg/ml SDV IV/IM 5 MG/ML AMP IV SLOW PU ONE (15:44)
[2023-04-02 16:38] LABS: Magnesium 2.2 mg/dL (1.9-2.7); Potassium Redraw 3.9 mmol/L (3.5-5.0)
[2023-04-02 16:38] LABS: Urine Appearance Cloudy; Urine Bilirubin Negative (Negative); Urine Blood 2+ (Negative); Urine Color Yellow; Urine Glucose Negative (Negative); Urine Ketones Trace (Negative); Urine Nitrite Negative (Negative); Urine Protein 3+(>=500 mg/dL) (Negative); Urine Urobilinogen Negative (Negative)
[2023-04-02 16:42] LABS: Urine Bacteria Absent (Absent); Urine Red Blood Cell 3+(>10/hpf) (Absent); Urine Squamous Epithelial Cell Present (Absent); Urine White Blood Cell Trace(0-5/hpf) (Absent)
[2023-04-02 17:04] LABS: Urine Specific Gravity > 1.060 (1.002-1.030)
[2023-04-02] MEDS ORDERED: Ondansetron 4 mg VIAL 2 MG/ML 2 ml VIAL IV PRN (20:44)
[2023-04-02] MEDS ORDERED: Prochlorperazine 5 mg/ml 2 ml VIAL (10 mg) IV PRN (20:48)
[2023-04-02] MEDS: Lactated Ringers 1000 ml BAG 1,000 ML IV ONE (21:23)
[2023-04-02] MEDS ORDERED: Enoxaparin 40 MG/0.4 ML SYR SUBCUT SCH (22:00)
[2023-04-02 22:17] LABS: Urine Chloride Concentration 43 mmol/L; Urine Sodium Concentration 38 mmol/L
[2023-04-03] MEDS: Lactated Ringers 1000 ml BAG 1,000 ML IV ONE (06:21)
[2023-04-03 06:35] LABS: Hematocrit 40.2 % (38-53); Hemoglobin 14.4 g/dL (13.2-16.3); Mean Corpuscular Hemoglobin 31.7 pg (27-33); Mean Corpuscular Hgb Conc 35.8 g/dL (31-36); Mean Corpuscular Volume 88.6 fL (80-97); Mean Platelet Volume 8.1 fL (7.5-11.2); Platelet Count 102 10^3/uL (150-450); Red Blood Count 4.53 10^6/uL (4.06-5.63); Red Cell Distribution Width 15.1 % (12-17)
[2023-04-03 06:52] LABS: Albumin 3.7 g/dL (3.2-5.2); Albumin/Globulin Ratio 1.2 (1-3); Calcium 8.6 mg/dL (8.6-10.3); Creatinine, Serum 0.9 mg/dL (0.67-1.17); Potassium 3.3 mmol/L (3.5-5.0); Total Bilirubin 0.5 mg/dL (0.2-1.0); Total Protein 6.7 g/dL (6.4-8.9); eGFR CKD-EPI 91.3 (>60)
[2023-04-03 07:25] LABS: RBC Morphology Normal (Normal)
[2023-04-03 07:28] LABS: ABS Lymphocytes 4.8 10^3/ul (1.0-4.8); ABS Monocytes 0.7 10^3/ul (0.0-1.1); ABS Neutrophils 4.5 10^3/ul (1.5-7.6)
[2023-04-03 07:29] LABS: ABS Basophils 0.1 10^3/uL (0.0-0.1); ABS Lymphocytes 4.2 10^3/uL (1.0-4.8); ABS Neutrophils 3.7 10^3/uL (1.5-7.6); ABS Nucleated RBC 0.01 10^3/ul; Lymphocyte % 41.8 %; Nucleated Red Blood Cells % 0.1 /100 WBC (0.0-0.4)
[2023-04-03] MEDS ORDERED: Potassium Chlor 20 meq TAB.ER PO ONE (07:52)
[2023-04-03 10:29] LABS: Urine Osmo 809 mOsm/kg (150-1150)
[2023-04-03 13:48] VITALS: BP 142/77
[2023-04-06 15:11] LABS: Anaplasma phagocytophilum Positive (Negative); B. miyamotoi PCR, B Negative (Negative); Babesia divergens/MO-1 Negative (Negative); Babesia ducani Negative (Negative); Ehrlichia chaffeensis Negative (Negative); Ehrlichia ewingii/canis Negative (Negative); Ehrlichia muris eauclairensis Negative (Negative)
== END 2023-04-03 14:25 | disposition home or self-care (01) ==
LOC: EDHOLD 10:10 → ED 10:10 → MED 20:56
PROVIDERS: ADMIT Hospitalist; ATTEND Internal Medicine

== ENCOUNTER 2023-04-09 12:55 | Inpatient (IN) ==
[2023-04-09] MEDS ORDERED: Ondansetron ODT 4 mg TAB 4 MG TAB SL ONE (13:38)
[2023-04-09] MEDS ORDERED: Droperidol 5 MG/2 ML 2 ML VIAL IV ONE ×2 (14:00→16:39)
[2023-04-09 14:05] LABS: Urine Appearance Cloudy; Urine Bilirubin Negative (Negative); Urine Blood 2+ (Negative); Urine Color Yellow; Urine Glucose 1+(50 mg/dL) (Negative); Urine Ketones Negative (Negative); Urine Nitrite Negative (Negative); Urine Protein 3+(>=500 mg/dL) (Negative); Urine Specific Gravity 1.014 (1.002-1.030); Urine Urobilinogen Negative (Negative)
[2023-04-09 14:12] LABS: Urine Bacteria Absent (Absent); Urine Red Blood Cell 2+(6-10/hpf) (Absent); Urine White Blood Cell Trace(0-5/hpf) (Absent)
[2023-04-09 14:22] LABS: Hematocrit 41.1 % (38-53); Hemoglobin 14.5 g/dL (13.2-16.3); Mean Corpuscular Hemoglobin 31.7 pg (27-33); Mean Corpuscular Hgb Conc 35.3 g/dL (31-36); Mean Corpuscular Volume 89.6 fL (80-97); Mean Platelet Volume 6.9 fL (7.5-11.2); Platelet Count 545 10^3/uL (150-450); Red Blood Count 4.59 10^6/uL (4.06-5.63); Red Cell Distribution Width 15.3 % (12-17)
[2023-04-09 14:24] LABS: ABS Basophils 0.2 10^3/uL (0.0-0.1); ABS Lymphocytes 2.7 10^3/uL (1.0-4.8); ABS Monocytes 2.1 10^3/uL (0.0-1.1); ABS Neutrophils 16.1 10^3/uL (1.5-7.6); ABS Nucleated RBC 0.04 10^3/ul; Lymphocyte % 12.8 %; Nucleated Red Blood Cells % 0.2 /100 WBC (0.0-0.4)
[2023-04-09 15:06] LABS: Albumin 4.4 g/dL (3.2-5.2); Albumin/Globulin Ratio 1.2 (1-3); C Reactive Protein 12.79 mg/L (<8.01); Calcium 9.6 mg/dL (8.6-10.3); Creatinine, Serum 0.97 mg/dL (0.67-1.17); Globulin 3.8 g/dL (2-4); Total Bilirubin 0.7 mg/dL (0.2-1.0); Total Protein 8.2 g/dL (6.4-8.9); eGFR CKD-EPI 83.5 (>60)
[2023-04-09] MEDS ORDERED: Lactated Ringers 1000 ml BAG 1,000 ML IV ONE ×2 (15:11→16:28)
[2023-04-09] MEDS ORDERED: Iodixanol (CONTRAST) 320 MG/ML 100 ML SDV IV ONE ×2 (15:38→17:46)
[2023-04-09] MEDS ORDERED: DOXYcycline 100 MG in NS 0.9% 250 ml 250 ML IVPB ONE (16:10)
[2023-04-09] MEDS ORDERED: Amoxicillin/Clavul 875/125 TAB (Augmentin 875 tab) PO ONE (16:22)
[2023-04-09] MEDS ORDERED: Morphine 2 MG/ML SYRINGE IV ONE ×3 (17:04→17:16)
[2023-04-09] MEDS ORDERED: Metoprolol Tartrate 5 mg VIAL 5 ml VIAL (1 mg/ml) IV ONE ×2 (17:05→17:24)
[2023-04-09] MEDS ORDERED: Metoprolol Tartrate 5 mg VIAL 5 ml VIAL (1 mg/ml) ONE ×2 (17:06→17:25)
[2023-04-09] MEDS ORDERED: Pantoprazole VIAL 40 MG VIAL IV ONE (17:22)
[2023-04-09 19:05] LABS: High Sensitivity Troponin 1 Hr 72 pg/mL (<20)
[2023-04-09 19:09] LABS: Urine Benzodiazepine Screen None Detected (None Detect); Urine Cannabinoids Screen Presumptive Positive (None Detect); Urine Opiates Screen None Detected (None Detect)
[2023-04-09] MEDS: Enoxaparin 40 MG/0.4 ML SYR SUBCUT SCH (21:27)
[2023-04-09] MEDS ORDERED: Lactated Ringers 1000 ml BAG 1,000 ML IV SCH (23:00)
[2023-04-09] MEDS: cefTRIAXone 2 gm/50 mL D5W 2 GM/50 ML BAG IV SCH (23:32)
[2023-04-10 07:19] LABS: Hematocrit 37.9 % (38-53); Hemoglobin 13.5 g/dL (13.2-16.3); Mean Corpuscular Hemoglobin 31.7 pg (27-33); Mean Corpuscular Hgb Conc 35.6 g/dL (31-36); Platelet Count 486 10^3/uL (150-450); Red Blood Count 4.25 10^6/uL (4.06-5.63); Red Cell Distribution Width 15.2 % (12-17); White Blood Count 17.8 10^3/uL (3.6-10.2)
[2023-04-10 07:33] LABS: Albumin 3.7 g/dL (3.2-5.2); Albumin/Globulin Ratio 1.1 (1-3); Calcium 8.6 mg/dL (8.6-10.3); Creatinine, Serum 0.87 mg/dL (0.67-1.17); Globulin 3.4 g/dL (2-4); HDL Cholesterol 33.7 mg/dL; Magnesium 1.7 mg/dL (1.9-2.7); Potassium 3.9 mmol/L (3.5-5.0); Total Bilirubin 0.6 mg/dL (0.2-1.0); Total Protein 7.1 g/dL (6.4-8.9); eGFR CKD-EPI 92.2 (>60)
[2023-04-10 07:41] LABS: Polychromasia 1+
[2023-04-10 07:42] LABS: ABS Basophils 0.1 10^3/uL (0.0-0.1); ABS Lymphocytes 4.4 10^3/uL (1.0-4.8); ABS Monocytes 3.2 10^3/uL (0.0-1.1); ABS Nucleated RBC 0.04 10^3/ul; Eosinophil % 0.1 %; Nucleated Red Blood Cells % 0.2 /100 WBC (0.0-0.4)
[2023-04-10] MEDS: Enoxaparin 40 MG/0.4 ML SYR SUBCUT SCH (21:17)
[2023-04-10] MEDS: cefTRIAXone 2 gm/50 mL D5W 2 GM/50 ML BAG IV SCH (22:22)
[2023-04-11 06:32] LABS: Hematocrit 37.3 % (38-53); Hemoglobin 13.2 g/dL (13.2-16.3); Mean Corpuscular Hemoglobin 30.8 pg (27-33); Mean Corpuscular Hgb Conc 35.3 g/dL (31-36); Mean Corpuscular Volume 87.2 fL (80-97); Mean Platelet Volume 6.7 fL (7.5-11.2); Platelet Count 513 10^3/uL (150-450); Red Blood Count 4.27 10^6/uL (4.06-5.63); Red Cell Distribution Width 14.8 % (12-17); White Blood Count 13.5 10^3/uL (3.6-10.2)
[2023-04-11 06:34] LABS: ABS Basophils 0.2 10^3/uL (0.0-0.1); ABS Eosinophils 0.1 10^3/uL (0.0-0.5); ABS Lymphocytes 4.1 10^3/uL (1.0-4.8); ABS Monocytes 2.8 10^3/uL (0.0-1.1); ABS Neutrophils 6.4 10^3/uL (1.5-7.6); ABS Nucleated RBC 0.01 10^3/ul; Eosinophil % 0.5 %; Lymphocyte % 30.4 %; Nucleated Red Blood Cells % 0.1 /100 WBC (0.0-0.4)
[2023-04-11 06:45] LABS: Calcium 8.9 mg/dL (8.6-10.3); Creatinine, Serum 0.91 mg/dL (0.67-1.17); Magnesium 2.1 mg/dL (1.9-2.7); Phosphorus 2.8 mg/dL (2.5-5.0); Potassium 4.1 mmol/L (3.5-5.0); eGFR CKD-EPI 90.1 (>60)
[2023-04-11] MEDS: Aspirin EC 81 mg TAB.EC (enteric coated) PO SCH (08:23)
[2023-04-11] MEDS: Enoxaparin 40 MG/0.4 ML SYR SUBCUT SCH (20:43)
[2023-04-11] MEDS: cefTRIAXone 2 gm/50 mL D5W 2 GM/50 ML BAG IV SCH (22:37)
[2023-04-12] MEDS ORDERED: Regadenoson 0.4 MG/5 ML SYRINGE ONE (08:20)
[2023-04-12] MEDS ORDERED: Aminophylline 25 MG/ML VIAL ONE (08:20)
[2023-04-12] MEDS: Aspirin EC 81 mg TAB.EC (enteric coated) PO SCH (10:11)
[2023-04-12 14:00] VITALS: BP 114/64
== END 2023-04-12 15:10 | disposition home or self-care (01) | DRG 392 ==
LOC: EDHOLD 12:55 → ED 12:55 → SUATTDRO 20:15 → EDHOLD 21:48 → MEDTELE 23:13
PROVIDERS: ADMIT Student in an Organized Health Care Education/Training Program; ATTEND Internal Medicine